=== PATIENT | female | born 1935 | race Caucasian/White ===

== ENCOUNTER 2016-06-28 12:06 | Day surgery (SDC) | payer MEDICARE, BC ==
[2016-06-24 13:07] VITALS: BMI 24.5
[~2016-06-28 12:06] MED LIST: SODIUM CHLORIDE 0.9% 1,000 ML IV SCH; ceFAZolin 2 GM in SODIUM CHLORIDE 0.9% 100 ML IVPB ONE
[2016-06-28 12:38] VITALS: TEMP 98.4
[2016-06-28] MEDS ORDERED: LIDOCAINE 2% INJ 20 MG/ML SQ ONE (15:39)
--- NOTE | 2016-06-28 15:51 | P.PCN ---
Preoperative Diagnosis: Loop explant under sedation and local anesthesia. Patient was brought to the EP lab in a fasting state. Written informed consent was obtained prior to the procedure. The subcutaneous device was successfully explanted under local anesthesia. Preoperative antibiotics were administered. The wound was closed in layers and dressed per protocol. Result: Successful loop monitor explantation. Patient was monitored, heart rate blood pressure and O2 sat from 3:38 PM to 3: 46 PM. Anesthesia: local Disposition: same day
[2016-06-28 16:19] VITALS: BP 189/86; PULSE 62; RESP 16
== END 2016-06-28 16:00 | disposition home or self-care (01) ==
LOC: CATHEP 12:06
PROVIDERS: ATTEND Internal Medicine Clinical Cardiac Electrophysiology
DX: Z45.09 Encounter for adjustment and management of other cardiac device (principal); R55 Syncope and collapse; I25.10 Atherosclerotic heart disease of native coronary artery without angina pectoris; I65.23 Occlusion and stenosis of bilateral carotid arteries; I35.1 Nonrheumatic aortic (valve) insufficiency; Z82.49 Family history of ischemic heart disease and other diseases of the circulatory system; Z95.1 Presence of aortocoronary bypass graft; Z79.01 Long term (current) use of anticoagulants; Z79.82 Long term (current) use of aspirin; Z79.899 Other long term (current) drug therapy
CPT/HCPCS: 33284; J2001; J0690

== ENCOUNTER 2018-04-04 15:01 | Observation (INO) | payer MEDICARE, BC ==
[2018-04-04] MEDS ORDERED: SODIUM CHLORIDE 0.9% 1,000 ML IV ONE (15:22)
[2018-04-04] MEDS ORDERED: cefTRIAXone 2,000 MG in SODIUM CHLORIDE 0.9% 100 ML IVPB STA (15:28)
[2018-04-04] MEDS ORDERED: PIPERACILLIN-TAZOBACTAM 3.375 GM in SODIUM CHLORIDE 0.9% 100 ML IVPB STA ×2 (15:39→17:08)
[2018-04-04 16:40] LABS: Albumin 3.6 g/dL (3.5-5.0); Calcium 10.4 mg/dL (8.4-10.2); Potassium 4.1 mmol/L (3.5-5.1); Total Bilirubin 0.7 mg/dL (0.2-1.3)
[2018-04-04 17:01] LABS: Appearance,Urine Turbid (Clear); Bacteria,Urine Many /hpf; Bilirubin,Urine Negative (Negative); Blood,Urine Moderate (Negative); Color,Urine Yellow; Glucose,Urine (UA) Negative (Negative); Ketones,Urine Negative (Negative); Leukocyte Esterase,Urine Large (Negative); Mucus,Urine Rare /hpf; Nitrite,Urine Negative (Negative); PH, Urine 6.5 (5.0-8.0); Protein,Urine 1+ (Negative); RBC,Urine 122 /hpf (0-5); Specific Gravity,Urine 1.016 (1.001-1.035); Squamous Epithelial Cell,Urine 2 /hpf (0-4); Urobilinogen,Urine <2.0 mg/dL (<2.0); WBC,Urine >182 /hpf (0-5)
--- NOTE | 2018-04-04 17:12 | ED ---
Female Urogenital HPI - General Chief complaint: Urogenital Stated complaint: Bladder infection-Dr sent Time Seen by Provider: 04/04/18 15:19 Source: patient, RN notes reviewed, old records reviewed Mode of arrival: ambulatory Limitations: no limitations - History of Present Illness Initial comments: This is a 82-year-old female the ER for evaluation she presents today for evaluation of abdominal pain and dysuria. Patient has known urinary tract infection on Macrobid resistance ESBL, patient was sent in the ER for inpatient therapy secondary to cultures coming back, patient has resistance to multiple medications and ALLERGIES to other medications that would work for her UTI. No fevers. No other complaints patient has been on 2 antibiotics for the outpatient basis both which show resistance, Complaint: dysuria -: week(s) Location: suprapubic Radiation: non-radiating Severity: mild Severity scale (1-10): 2 Quality: cramping Consistency: constant Improves with: urination Worsens with: urination Patient : No Associated Symptoms: abdominal pain - Related Data Home Medications Medication Instructions Recorded Confirmed Cyanocobalamin [Vitamin B-12] 500 mcg PO DAILY 02/24/15 04/04/18 Polyethylene Glycol 3350 [Miralax] 17 gm PO DAILY 02/24/15 04/04/18 Lidocaine 5% Patch [Lidoderm 5% 1 patch TRANSDERM DAILY 08/12/15 04/04/18 Patch] cycloSPORINE 0.05% OPHTH SOLN 1 drop BOTH EYES BID 08/12/15 04/04/18 [Restasis] Ascorbic Acid [Vitamin C] 1,000 mg PO DAILY 06/24/16 04/04/18 Pravastatin Sodium [Pravachol] 40 mg PO DAILY 06/24/16 04/04/18 Doxycycline Hyclate 100 mg PO BID 04/04/18 04/04/18 Meloxicam [Mobic] 7.5 mg PO DAILY 04/04/18 04/04/18 Naproxen Sodium [Aleve] 220 mg PO DAILY 04/04/18 04/04/18 Allergies Allergy/AdvReac Type Severity Reaction Status Date / Time Sulfa (Sulfonamide Allergy Unknown Verified 04/04/18 15:59 Antibiotics) nitrofurantoin AdvReac fainting Verified 04/04/18 15:59 [From Macrobid] Review of Systems ROS Statement: Those systems with pertinent positive or pertinent negative responses have been documented in the HPI. ROS Other: All systems not noted in ROS Statement are negative. Past Medical History Past Medical History: Coronary Artery Disease (CAD), Hyperlipidemia, Pulmonary Embolus (PE) Additional Past Medical History / Comment(s): SEE DR BAUER'S H&P,FREQ DIZZINESS,FREQ UTI'S, urinary retention -self caths, constipation, shingles 10 years ago, osteoporosis History of Any Multi-Drug Resistant Organisms: None Reported Past Surgical History: Back Surgery, Coronary Bypass/CABG, Orthopedic Surgery, Tonsillectomy Additional Past Surgical History / Comment(s): PAIN CLINIC PROCEDURES,CABG 2 VESSEL 2003, maxwell cataracts,rt rotator cuff, rt hip/donna in place,"implanted monitor to monitor any cardic changes that could explain her syncopal episodes" Past Anesthesia/Blood Transfusion Reactions: Motion Sickness Past Psychological History: No Psychological Hx Reported Smoking Status: Never smoker Past Alcohol Use History: None Reported Past Drug Use History: None Reported - Past Family History Mother Family Medical History: Cancer Additional Family Medical History / Comment(s): LUNG cancer Father Family Medical History: Myocardial Infarction ([place]) Additional Family Medical History / Comment(s): hardening of the arteries General Exam Limitations: no limitations General appearance: alert, in no apparent distress Head exam: Present: atraumatic, normocephalic, normal inspection Eye exam: Present: normal appearance, PERRL, EOMI. Absent: scleral icterus, conjunctival injection, periorbital swelling ENT exam: Present: normal exam, mucous membranes moist Neck exam: Present: normal inspection. Absent: tenderness, meningismus, lymphadenopathy Respiratory exam: Present: normal lung sounds bilaterally. Absent: respiratory distress, wheezes, rales, rhonchi, stridor Cardiovascular Exam: Present: regular rate, normal rhythm, normal heart sounds. Absent: systolic murmur, diastolic murmur, rubs, gallop, clicks GI/Abdominal exam: Present: soft, normal bowel sounds. Absent: distended, tenderness, guarding, rebound, rigid Extremities exam: Present: normal inspection, full ROM, normal capillary refill. Absent: tenderness, pedal edema, joint swelling, calf tenderness Back exam: Present: normal inspection Neurological exam: Present: alert, oriented X3, CN II-XII intact Psychiatric exam: Present: normal affect, normal mood Skin exam: Present: warm, dry, intact, normal color. Absent: rash Course Vital Signs 04/04/18 04/04/18 15:10 17:13 Temperature 98.3 F 98.4 F Pulse Rate 70 Respiratory 18 Rate Blood Pressure 121/73 O2 Sat by Pulse 95 Oximetry - Reevaluation(s) Reevaluation #1: 04/04/18 18:35 Medical record and microbiology are reviewed Medical Decision Making - Medical Decision Making 82 female the ER for evaluation of UTI, will admit for feel outpatient treatment of urinary tract infection - Lab Data Result diagrams: 04/04/18 16:00 04/04/18 16:00 Lab Results 04/04/18 04/04/18 04/04/18 Range/Units 16:00 16:00 16:25 WBC 9.0 (3.8-10.6) k/uL RBC 4.01 (3.80-5.40) m/uL Hgb 11.4 (11.4-16.0) gm/dL Hct 35.7 (34.0-46.0) % MCV 89.0 (80.0-100.0) fL MCH 28.3 (25.0-35.0) pg MCHC 31.8 (31.0-37.0) g/dL RDW 16.0 H (11.5-15.5) % Plt Count 271 (150-450) k/uL Neutrophils % 79 % Lymphocytes % 10 % Monocytes % 6 % Eosinophils % 2 % Basophils % 1 % Neutrophils # 7.1 (1.3-7.7) k/uL Lymphocytes # 0.9 L (1.0-4.8) k/uL Monocytes # 0.6 (0-1.0) k/uL Eosinophils # 0.2 (0-0.7) k/uL Basophils # 0.1 (0-0.2) k/uL Anisocytosis Slight Sodium 142 (137-145) mmol/L Potassium 4.1 (3.5-5.1) mmol/L Chloride 107 (98-107) mmol/L Carbon Dioxide 29 (22-30) mmol/L Anion Gap 6 mmol/L BUN 25 H (7-17) mg/dL Creatinine 0.98 (0.52-1.04) mg/dL Est GFR (CKD-EPI)AfAm 63 (>60 ml/min/1.73 sqM) Est GFR (CKD-EPI)NonAf 54 (>60 ml/min/1.73 sqM) Glucose 107 H (74-99) mg/dL Calcium 10.4 H (8.4-10.2) mg/dL Total Bilirubin 0.7 (0.2-1.3) mg/dL AST 16 (14-36) U/L ALT 16 (9-52) U/L Alkaline Phosphatase 38 (38-126) U/L Total Protein 6.0 L (6.3-8.2) g/dL Albumin 3.6 (3.5-5.0) g/dL Urine Color Yellow Urine Appearance Turbid H (Clear) Urine pH 6.5 (5.0-8.0) Ur Specific Anthony 1.016 (1.001-1.035) Urine Protein 1+ H (Negative) Urine Glucose (UA) Negative (Negative) Urine Ketones Negative (Negative) Urine Blood Moderate H (Negative) Urine Nitrite Negative (Negative) Urine Bilirubin Negative (Negative) Urine Urobilinogen <2.0 (<2.0) mg/dL Ur Leukocyte Esterase Large H (Negative) Urine RBC 122 H (0-5) /hpf Urine WBC >182 H (0-5) /hpf Urine WBC Clumps Many H (None) /hpf Ur Squamous Epith Cells 2 (0-4) /hpf Urine Bacteria Many H (None) /hpf Urine Mucus Rare H (None) /hpf Disposition Clinical Impression: Urinary tract infection, Failure of outpatient treatment Disposition: ADMITTED IP TO THIS HOSP Condition: Good Is patient prescribed a controlled substance at d/c from ED?: No
[2018-04-04 17:20] LABS: Anisocytosis Slight; Basophils # (A) 0.1 k/uL (0-0.2); Basophils % (A) 1 %; Eosinophils # (A) 0.2 k/uL (0-0.7); Eosinophils % (A) 2 %; HCT 35.7 % (34.0-46.0); HGB 11.4 gm/dL (11.4-16.0); Lymphocytes # (A) 0.9 k/uL (1.0-4.8); Lymphocytes % (A) 10 %; MCH 28.3 pg (25.0-35.0); MCHC 31.8 g/dL (31.0-37.0); Mean Platelet Volume 6.8; Monocytes # (A) 0.6 k/uL (0-1.0); Monocytes % (A) 6 %; Neutrophils # (A) 7.1 k/uL (1.3-7.7); Neutrophils % (A) 79 %; Platelet Count 271 k/uL (150-450); RBC 4.01 m/uL (3.80-5.40)
[2018-04-04] MEDS: LIDOCAINE 5% PATCH TOPICAL SCH (21:47)
[2018-04-04] MEDS: cycloSPORINE 0.05% OPHTH 0.4 ML DROPERETTE BOTH EYES SCH (21:47)
[2018-04-04 21:56] VITALS: BMI 25.9
[2018-04-04] MEDS: PIPERACILLIN-TAZOBACTAM 3.375 GM in SODIUM CHLORIDE 0.9% 100 ML IVPB SCH (23:40)
[2018-04-05] MEDS: MELOXICAM 7.5 MG TAB PO SCH (07:45)
[2018-04-05] MEDS: CYANOCOBALAMIN 500 MCG TAB PO SCH (07:45)
[2018-04-05] MEDS: PIPERACILLIN-TAZOBACTAM 3.375 GM in SODIUM CHLORIDE 0.9% 100 ML IVPB SCH ×2 (07:45→15:17)
[2018-04-05] MEDS: ASCORBIC ACID 500 MG TAB PO SCH (07:46)
[2018-04-05] MEDS: ENOXAPARIN 40 MG/0.4 ML SYRINGE SQ SCH (07:46)
[2018-04-05] MEDS: PRAVASTATIN SODIUM 40 MG TAB PO SCH (07:46)
[2018-04-05] MEDS: POLYETHYLENE GLYCOL 3350 17 GM POWD.PACK PO SCH (07:47)
[2018-04-05] MEDS: cycloSPORINE 0.05% OPHTH 0.4 ML DROPERETTE BOTH EYES SCH ×2 (07:48→20:00)
[2018-04-05] MEDS ORDERED: ONDANSETRON 4 MG/2 ML VIAL IVP PRN (17:51)
[2018-04-05] MEDS ORDERED: NALOXONE 0.4 MG/ML 1 ML VIAL IV PRN (17:51)
[2018-04-05] MEDS ORDERED: MELATONIN 3 MG TABLET PO PRN (17:51)
[2018-04-05] MEDS ORDERED: ACETAMINOPHEN TAB 325 MG TAB PO PRN (17:51)
[2018-04-05] MEDS ORDERED: ALPRAZolam 0.25 MG TAB PO PRN (17:51)
[2018-04-05] MEDS ORDERED: CALCIUM CARBONATE 500 MG CHEWABLE PO PRN (17:51)
--- NOTE | 2018-04-05 17:51 | P.HPIM ---
History of Present Illness H&P Date: 04/05/18 Chief Complaint: Burning in the urine History of presenting complaint: This is a very pleasant 82-year-old patient of Dr. Cook. Chronic stable medical conditions include coronary artery disease with bypass, hypertension, hyperlipidemia. Patient presents with burning of the urine for a few days. Getting progressively worse. Finally decided to go to see a family doctor. Urine was sent off. Because of a multidrug-resistant orgasm patient was sent into the ER. Patient also is having suprapubic lower abdominal pain. Nausea and no nausea vomiting. Appetite has been fair. No fever or chills. Patient has been a bit tired rundown. Patient started on IV Zosyn. Patient is really concerned about going home because of a small dog at home. Review of systems: GEN.: Tired EYES: None HEENT: None NECK: None RESPIRATORY: None CARDIOVASCULAR: None GASTROINTESTINAL: None GENITOURINARY: As above MUSCULOSKELETAL: Pain in the joint LYMPHATICS: None HEMATOLOGICAL: None PSYCHIATRY: None NEUROLOGICAL: None. Past medical history: Coronary artery disease, hyperlipidemia, pulmonary embolism, urinary retention, constipation, shingles, osteoporosis Social history: . 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 No smoking or alcohol. Family history: Lung cancer Physical examination: VITAL SIGNS: 98.3, 70, 18, 121/73, 95% room air GENERAL: Average built, laying in bed,, comfortable. EYES: Pupils equal. Conjunctiva normal. HEENT: External appearance of nose and ears normal, oral cavity grossly normal, decreased hearing. NECK: JVD not raised; masses not palpable. HEART: First and second heart sounds are normal; no edema. LUNGS: Respiratory rate normal; clear to auscultation. ABDOMEN: Soft, nontender, liver spleen not palpable, no masses palpable. LYMPHATICS: No lymph nodes palpable in the axilla and neck. PSYCH: Alert and oriented x3; mood and affect normal. NEUROLOGICAL: Cranial nerves grossly intact; no facial asymmetry, power and sensation grossly intact. MUSCULOSKELETAL: Evidence of OA especially in the hands Investigations: Reviewed in the context of clinical picture White count 9, hemoglobin 11.4, potassium 4.1, BUN 25, creatinine 0.98 UA positive for leukoesterase WBC Assessment: -Acute UTI with cystitis, present on admission -Coronary artery disease with prior history of cardiac bypass -Essential hypertension -Hyperlipidemia -Primary osteoarthritis Plan: Patient was started on IV Zosyn. Home medications are resumed. Lovenox for DVT prophylaxis. IV fluids. ID was consulted. Urine cultures are pending. Care was discussed the patient. Past Medical History Past Medical History: Coronary Artery Disease (CAD), Hyperlipidemia, Pulmonary Embolus (PE) Additional Past Medical History / Comment(s): SEE DR BAUER'S H&P,FREQ DIZZINESS,FREQ UTI'S, urinary retention -self caths, constipation, shingles 10 years ago, osteoporosis History of Any Multi-Drug Resistant Organisms: None Reported Past Surgical History: Back Surgery, Coronary Bypass/CABG, Orthopedic Surgery, Tonsillectomy Additional Past Surgical History / Comment(s): PAIN CLINIC PROCEDURES,CABG 2 VESSEL 2003, maxwell cataracts,rt rotator cuff, rt hip/donna in place,"implanted monitor to monitor any cardic changes that could explain her syncopal episodes" Past Anesthesia/Blood Transfusion Reactions: Motion Sickness Past Psychological History: No Psychological Hx Reported Additional Psychological History / Comment(s): pt is a , was 51 years. 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 pt had hip sx recently .has home care nurse once a week and pt 2 times a week. Smoking Status: Never smoker Past Alcohol Use History: None Reported Past Drug Use History: None Reported - Past Family History Mother Family Medical History: Cancer Additional Family Medical History / Comment(s): LUNG cancer Father Family Medical History: Myocardial Infarction ([place]) Additional Family Medical History / Comment(s): hardening of the arteries Medications and Allergies Home Medications Medication Instructions Recorded Confirmed Type Cyanocobalamin [Vitamin B-12] 500 mcg PO DAILY 02/24/15 04/04/18 History Polyethylene Glycol 3350 [Miralax] 17 gm PO DAILY 02/24/15 04/04/18 History Lidocaine 5% Patch [Lidoderm 5% 1 patch TRANSDERM DAILY 08/12/15 04/04/18 History Patch] cycloSPORINE 0.05% OPHTH SOLN 1 drop BOTH EYES BID 08/12/15 04/04/18 History [Restasis] Ascorbic Acid [Vitamin C] 1,000 mg PO DAILY 06/24/16 04/04/18 History Pravastatin Sodium [Pravachol] 40 mg PO DAILY 06/24/16 04/04/18 History Doxycycline Hyclate 100 mg PO BID 04/04/18 04/04/18 History Meloxicam [Mobic] 7.5 mg PO DAILY 04/04/18 04/04/18 History Naproxen Sodium [Aleve] 220 mg PO DAILY 04/04/18 04/04/18 History Allergies Allergy/AdvReac Type Severity Reaction Status Date / Time Sulfa (Sulfonamide Allergy Unknown Verified 04/04/18 15:59 Antibiotics) nitrofurantoin AdvReac fainting Verified 04/04/18 15:59 [From Macrobid] Physical Exam Vitals: Vital Signs Temp Pulse Pulse Resp BP BP Pulse Ox 04/05/18 06:56 98.2 F 64 16 154/71 95 04/04/18 23:45 97.5 F L 57 L 16 161/69 97 04/04/18 21:10 97.8 F 58 L 16 185/71 98 04/04/18 19:29 97.9 F 65 18 177/89 97 04/04/18 17:13 98.4 F 04/04/18 15:10 98.3 F 70 18 121/73 95 Intake and Output 04/05/18 04/05/18 04/05/18 06:59 14:59 22:59 Intake Total 300 Balance 300 Intake: Oral 300 Other: Voiding Method Toilet # Voids 1 1 Results CBC & Chem 7: 04/04/18 16:00 04/04/18 16:00 Labs: Abnormal Lab Results - Last 24 Hours (Table) 04/04/18 04/04/18 04/04/18 Range/Units 16:00 16:00 16:25 RDW 16.0 H (11.5-15.5) % Lymphocytes # 0.9 L (1.0-4.8) k/uL BUN 25 H (7-17) mg/dL Glucose 107 H (74-99) mg/dL Calcium 10.4 H (8.4-10.2) mg/dL Total Protein 6.0 L (6.3-8.2) g/dL Urine Appearance Turbid H (Clear) Urine Protein 1+ H (Negative) Urine Blood Moderate H (Negative) Ur Leukocyte Esterase Large H (Negative) Urine RBC 122 H (0-5) /hpf Urine WBC >182 H (0-5) /hpf Urine WBC Clumps Many H (None) /hpf Urine Bacteria Many H (None) /hpf Urine Mucus Rare H (None) /hpf Microbiology - Last 24 Hours (Table) 04/04/18 16:25 Urine Culture - Preliminary Urine,Catheterized Thrombosis Risk Factor Assmnt - Choose All That Apply Any of the Below Risk Factors Present?: Yes Each Factor Represents 1 point: Obesity (BMI >25) Other Risk Factors: Yes Each Risk Factor Represents 3 Points: Age 75 years or older Other congenital or acquired thrombophilia - If yes, enter type in comment: No Thrombosis Risk Factor Assessment Total Risk Factor Score: 4 Thrombosis Risk Factor Assessment Level: Moderate Risk
[2018-04-05] MEDS: LIDOCAINE 5% PATCH TOPICAL SCH (20:00)
--- NOTE | 2018-04-05 23:48 | CONS ---
CONSULTATION DATE OF SERVICE: 04/05/2018. REASON FOR CONSULTATION: Urinary tract infection. HISTORY OF PRESENT ILLNESS: The patient is an 82 -year-old female with past medical history significant for recurrent urinary tract infection. The patient did have a urinary tract infection with ESBL pathogen in December of 2017. The patient apparently has been treated in the outpatient setting for a UTI for which the patient not responding and the patient has been sent to the [facility] ER for further evaluation on the scene. The patient has been complaining of some burning of urine and has been complaining of discomfort in the left groin area. Pain described to be more of a dull aching 3-4 out of 10, and no radiation. The patient has been nauseated but no vomiting. The patient denies having any high grade fever. However, did have some chills. The patient denies any chest pain or shortness of breath or cough and no diarrhea. With these symptoms, the patient was evaluated by the ER physician. On arrival to the ER, the patient has been afebrile. The patient did have a normal white count. However, the urine was significantly positive with large leukocyte esterase, more than WBC. Many bacteria. Cultures currently showing gram-negative. The patient has been started on Zosyn for was consulted for further recommendation regarding antibiotic therapy. REVIEW OF SYSTEMS: Positive points have been mentioned in HPI. Rest of the systems have been negative. PAST MEDICAL HISTORY: Pulmonary embolus, hyperlipidemia, coronary artery disease, history of recurrent UTIs. PAST SURGICAL HISTORY: Back surgery, coronary artery bypass grafting, tonsillectomy. SOCIAL HISTORY: No history of smoking, drinking, or drug use. FAMILY HISTORY: Mother with history of lung cancer. Father history of UT. ALLERGIES: SULFA and NITROFURANTOIN. MEDICATION: Include the patient is currently on Tylenol, Xanax, vitamin C, TUMS, vitamin B12, cyclosporine and Zosyn 3.375 g q.8h, Lidoderm, Melatonin, Mobic, Narcan, Zofran, MiraLAX, and Pravachol. PHYSICAL EXAMINATION: Blood pressure is 120/68 with a pulse of 73, temperature 98.7. She is 97% on room air. General description is an elderly female up in the bed in no distress. No tachypnea or accessory muscles of respiration use. HEENT: Shows no pallor or scleral icterus. Oral mucosal membranes dry. No pharyngeal or thrush. Neck trachea is central. No thyromegaly. Lungs unlabored breathing. Clear to auscultation anteriorly. No wheeze or crackles. Heart S1, S2. Regular rate and rhythm. ABDOMEN: Soft, no tenderness. No guarding or rigidity. Extremities: No edema of the feet. Skin examination: No rash or mass palpable. NEUROLOGIC: The patient is awake, alert, oriented. Mood and affect normal. LABS: Hemoglobin 11.4, white count 9.0, BUN of 25, creatinine 0.98, and electrolytes have been normal. Urinalysis has been positive. Cultures currently pending. DIAGNOSTIC IMPRESSION/PLAN: 1. Patient admitted to the hospital with urinary tract infection in this patient who apparently failed outpatient oral antibiotic therapy. Did have previous history of ESBL urinary tract infection, could be the same ESBL pathogen that has failed to respond to the antibiotic the patient has received in the outpatient setting. 2. Patient who does have SULFA AND NITROFURANTOIN allergy that does limit the number of antibiotics that are safe to use. PLAN: 1. Discontinue the Zosyn. 2. Start the patient on Invanz 1 gm daily. 3. We will follow up on the clinical condition and culture and adjust antibiotic further if needed. Thank you for this consultation. We will follow this patient along with you. MMODL / IJN: [id number] /
[2018-04-06] MEDS: ERTAPENEM 1 GM in SODIUM CHLORIDE 0.9% 50 ML IVPB SCH ×2 (00:13→14:50)
[2018-04-06 01:41] VITALS: RESP 16
[2018-04-06 07:43] VITALS: BP 125/57; PULSE 69; TEMP 98.4
[2018-04-06] MEDS: POLYETHYLENE GLYCOL 3350 17 GM POWD.PACK PO SCH (09:28)
[2018-04-06] MEDS: ENOXAPARIN 40 MG/0.4 ML SYRINGE SQ SCH (09:34)
[2018-04-06] MEDS: CYANOCOBALAMIN 500 MCG TAB PO SCH (09:34)
[2018-04-06] MEDS: PRAVASTATIN SODIUM 40 MG TAB PO SCH (09:35)
[2018-04-06] MEDS: MELOXICAM 7.5 MG TAB PO SCH (09:35)
[2018-04-06] MEDS: cycloSPORINE 0.05% OPHTH 0.4 ML DROPERETTE BOTH EYES SCH (09:35)
[2018-04-06] MEDS: ASCORBIC ACID 500 MG TAB PO SCH (09:35)
--- NOTE | 2018-04-06 15:16 | PN ---
PROGRESS NOTE DATE OF SERVICE: 04/06/2018 REASON FOR FOLLOWUP: Urine tract infection. INTERVAL HISTORY: The patient is currently afebrile. She is breathing comfortably. She denies having any chest pain or shortness of breath or cough. No abdominal pain. The urinary symptoms have improved. Cultures are currently pending; however, the patient is insisting on going home. PHYSICAL EXAMINATION: Blood pressure is 125/57, pulse of 69, temperature of 98.4. She is 94% on room air. General description is an elderly female up in the bed in no distress. RESPIRATORY SYSTEM: Unlabored breathing. Clear to auscultation anteriorly. HEART: S1, S2. Regular rate and rhythm. ABDOMEN: Soft. No tenderness. LABS: No new labs have been obtained today. Urine culture with gram-negative bacilli; ID sensitivities pending. DIAGNOSTIC IMPRESSION AND PLAN: Patient with a gram-negative urinary tract infection in this patient who does have a history of extended-spectrum beta-lactamase Escherichia coli, with a question of similar or a different pathogen. Patient has overall improvement clinically on IV Invanz. She has been insisting on going home without waiting for the final identification of this pathogen. She did get a dose of Invanz today and yesterday, enough for mild cystitis. Will also give a one-time dose of fosfomycin 3 grams. Prescription was provided to the patient and close outpatient followup. Continue with supportive care. MMODL / IJN: [id number] /
--- NOTE | 2018-04-07 09:11 | DS ---
DISCHARGE SUMMARY DATE OF ADMISSION: April 04, 2018 DATE OF DISCHARGE: April 06, 2018. FINAL DIAGNOSES: 1. Acute urinary tract infection with cystitis from E coli/ESBL. 2. Coronary artery disease with prior history of coronary artery bypass. 3. Essential hypertension. 4. Hyperlipidemia. 5. Primary osteoarthritis. HOSPITAL COURSE: This patient presented with burning sensation. Outpatient labs had show an ESBL. The patient presented with suprapubic pain. The patient was very resistant about going home today and so this was coordinated by Dr. Bustillos. The patient will be getting a dose of fosfomycin as an outpatient 1 dose and that should complete the course. Otherwise, patient is doing better now. Afebrile. Tolerating a diet. Symptoms are better. On examination: Temperature 98.4, pulse 69, respiration 16, blood pressure 120/57. INVESTIGATIONS: White count 9. The patient's urine culture here also grew E coli with ESBL. Care was discussed with Dr. Bustillos today and also with the patient and the granddaughter in detail. Coordination of care and DC planning more than 35 minutes. Abdomen soft nontender. DISCHARGE MEDICATIONS: 1. Vitamin B12 500 mcg a day. 2. MiraLAX 17 grams p.o. daily. 3. Lidoderm 5% patch daily. 4. Restasis 1 drop to both eyes b.i.d. 5. Vitamin C 1000 mg p.o. daily. 6. Pravachol 40 mg p.o. daily. 7. Mobic 7.5 mg p.o. daily. 8. Fosfomycin as per Dr. Bustillos 1 dose. FOLLOWUP: Follow up with Dr. San on April 11, 2018. Dr. Bustillos on April 10, 2018. Labs ordered. Discussion and discharge planning more than [address] San. MMODL / IJN: [id number] /
== END 2018-04-06 15:40 | disposition home or self-care (01) ==
LOC: EC 15:01 → 4SSUR 17:47
PROVIDERS: ADMIT Hospitalist; ATTEND Hospitalist
DX: N30.00 Acute cystitis without hematuria (principal); B96.20 Unspecified Escherichia coli [E. coli] as the cause of diseases classified elsewhere; I25.10 Atherosclerotic heart disease of native coronary artery without angina pectoris; I10 Essential (primary) hypertension; E78.5 Hyperlipidemia, unspecified; R33.9 Retention of urine, unspecified; K59.00 Constipation, unspecified; M19.91 Primary osteoarthritis, unspecified site; M81.0 Age-related osteoporosis without current pathological fracture; E66.9 Obesity, unspecified; Z68.25 Body mass index [BMI] 25.0-25.9, adult; Z16.12 Extended spectrum beta lactamase (ESBL) resistance; Z95.1 Presence of aortocoronary bypass graft; Z86.711 Personal history of pulmonary embolism; Z82.49 Family history of ischemic heart disease and other diseases of the circulatory system; Z80.1 Family history of malignant neoplasm of trachea, bronchus and lung; Z16.24 Resistance to multiple antibiotics; Z79.899 Other long term (current) drug therapy; Z87.440 Personal history of urinary (tract) infections; Z88.2 Allergy status to sulfonamides; Z79.1 Long term (current) use of non-steroidal anti-inflammatories (NSAID); Z86.19 Personal history of other infectious and parasitic diseases; Z88.1 Allergy status to other antibiotic agents
CPT/HCPCS: 96361; 96366 ×2; 96367; 96372 ×2; 96360; 96365; 99284; 36415; 80053; 85025; 81001; 87086; 87077; 87186; G0378 ×3; J2543 ×2; J1650 ×2; J1335

== ENCOUNTER → 2018-07-10 | Outpatient (CLI) | payer MEDICARE, BC ==
[~2018-07-10] MED LIST changes: +DENOSUMAB 60 MG/ML 1 ML SYRINGE SQ ONE; -SODIUM CHLORIDE 0.9% 1,000 ML IV SCH; -ceFAZolin 2 GM in SODIUM CHLORIDE 0.9% 100 ML IVPB ONE
[2018-07-10 15:07] VITALS: BP 171/68; PULSE 73; RESP 16; TEMP 97.7
== END ==
LOC: PROCWHC3 14:41
PROVIDERS: ATTEND Internal Medicine
DX: M81.0 Age-related osteoporosis without current pathological fracture (principal)
CPT/HCPCS: 96372; J0897

== ENCOUNTER → 2019-01-10 | Outpatient (CLI) | payer MEDICARE, BC ==
[~2019-01-10] MED LIST changes: +DENOSUMAB 60 MG/ML 1 ML SYRINGE SQ NR; -DENOSUMAB 60 MG/ML 1 ML SYRINGE SQ ONE
[2019-01-10 12:46] VITALS: BP 134/76; PULSE 85; RESP 18; TEMP 97.2
== END | disposition home or self-care (01) ==
LOC: PROCWHC3 12:36
PROVIDERS: ATTEND Internal Medicine
DX: M81.0 Age-related osteoporosis without current pathological fracture (principal)
CPT/HCPCS: 96372; J0897

== ENCOUNTER → 2019-03-04 | Outpatient (CLI) | payer MEDICARE, BC ==
--- NOTE | 2019-03-05 06:32 | US ---
EXAMINATION TYPE: US carotid duplex BILAT DATE OF EXAM: 03/04/2019 COMPARISON: NONE CLINICAL HISTORY: I65.21 RT LOWER BRUIT, PULSATILE MASS. Bruit EXAM MEASUREMENTS: RIGHT: Peak Systolic Velocity (PSV) cm/sec ----- Right CCA: 48.3 ----- Right ICA: 48.3 ----- Right ECA: 93.8 ICA/CCA ratio: 1.0 RIGHT: End Diastole cm/sec ----- Right CCA: 9.9 ----- Right ICA: 10.4 ----- Right ECA: 7.0 LEFT: Peak Systolic Velocity (PSV) cm/sec ----- Left CCA: 51.2 ----- Left ICA: 85.3 ----- Left ECA: 111.9 ICA/CCA ratio: 1.7 LEFT: End Diastole cm/sec ----- Left CCA: 12.2 ----- Left ICA: 22.3 ----- Left ECA: 7.6 VERTEBRALS (direction of flow): Right Vertebral: Antegrade Left Vertebral: Antegrade Rhythm: Normal Damian scale images show mild peripheral hyperechoic plaque centered at carotid bulb level bilaterally. Velocity measurements and ratios remain within normal limits in the visualized portion of both inter nal carotid arteries. IMPRESSION: No hemodynamically significant stenosis in either internal carotid artery. Criteria for Assigning % of Stenosis / Diameter reduction (Estimation based on the indirect measurements of the internal carotid artery velocities (ICA PSV). 1. Normal (no stenosis)=ICA PSV < 125 cm/s: ratio < 2.0: ICA EDV<40 cm/s. 2. Less than 50% stenosis=ICA PSV < 125 cm/s: ratio < 2.0: ICA EDV<40 cm/s. 3. 50 to 69% stenosis=ICA PSV of 125 to 230 cm/s: ration 2.0 ? 4.0: ICA EDV 40-100 cm/s. 4. Greater than 70% stenosis to near occlusion= ICA PSV > 230 cm/s: ratio > 4.0: ICA EDV > 100 cm/s. 5. Near occlusion= ICA PSV velocities may be low or undetectable: variable ratio and ICA EDV. 6. Total occlusion=unable to detect flow.
== END | disposition home or self-care (01) ==
LOC: RADUSWWP 16:07
PROVIDERS: ATTEND Psychiatry & Neurology Neurology
DX: I65.21 Occlusion and stenosis of right carotid artery (principal)
CPT/HCPCS: 93880

== ENCOUNTER 2021-01-07 18:37 | Emergency (ER) | payer MEDICARE, BC ==
[2021-01-07 18:48] VITALS: TEMP 98.3
[2021-01-07 19:26] LABS: Basophils # (A) 0.1 k/uL (0-0.2); Basophils % (A) 1 %; Eosinophils # (A) 0.2 k/uL (0-0.7); Eosinophils % (A) 3 %; HCT 39.4 % (34.0-46.0); HGB 12.6 gm/dL (11.4-16.0); Lymphocytes # (A) 0.9 k/uL (1.0-4.8); Lymphocytes % (A) 11 %; MCV 87.6 fL (80.0-100.0); Mean Platelet Volume 8.9; Monocytes # (A) 0.6 k/uL (0-1.0); Monocytes % (A) 6 %; Neutrophils # (A) 6.7 k/uL (1.3-7.7); Neutrophils % (A) 78 %; Platelet Count 210 k/uL (150-450); RDW 15.9 % (11.5-15.5); WBC 8.5 k/uL (3.8-10.6)
[2021-01-07] MEDS ORDERED: SODIUM CHLORIDE 0.9% 500 ML 500 ML IV STA (19:28)
--- NOTE | 2021-01-07 19:29 | ED ---
General Adult HPI - General Chief complaint: Shortness of Breath Stated complaint: ALEXANDRA Time Seen by Provider: 01/07/21 18:47 Source: patient Mode of arrival: EMS Limitations: no limitations - History of Present Illness Initial comments: Dictation was produced using [employer] dictation software. please excuse any grammatical, word or spelling errors. Chief Complaint: 85-year-old female brought to the emergency department for an episode of respiratory distress History of Present Illness: Patient is an 85-year-old female she was brought in by EMS. Patient is a poor historian. History of present illness was obtained from patient's daughter and EMS. Patient was diagnosed with 12-lead 10 days ago. She's been symptomatic for approximately 13 days. According to daughter who is at the bedside she witnessed an episode of respiratory distress. As described as a gasping episode. She's been much more lethargic today. She otherwise has not really shown any severe respiratory symptoms from coronavirus. Daughter reports that patient is incontinent to urine. She is noted dark urine. Patient has previous history of pseudomonas UTI. The ROS documented in this emergency department record has been reviewed and confirmed by me. Those systems with pertinent positive or negative responses have been documented in the HPI. All other systems are other negative and/or noncontributory. PHYSICAL EXAM: General Impression: Alert and oriented x3, not in acute distress HEENT: Normocephalic atraumatic, extra-ocular movements intact, pupils equal and reactive to light bilaterally, dry mucous members Cardiovascular: Heart regular rate and rhythm Chest: Able to complete full sentences, no retractions, no tachypnea Abdomen: abdomen soft, non-tender, non-distended, no organomegaly Musculoskeletal: Pulses present and equal in all extremities, no peripheral edema Motor: no focal deficits noted Neurological: CN II-XII grossly intact, no focal motor or sensory deficits noted Skin: Intact with no visualized rashes Psych: Normal affect and mood ED course: 85-year-old female presents emergency department for episode of respiratory distress described as gasping episode. Vital signs upon arrival are within acceptable limits. Patient arrived on nonrebreather. EMS did not check a pulse oxygen before applying nonrebreather. Patient was weaned off nonrebreather. She is 94% on room air. To evaluation obtained. CBC, metabolic panel is unremarkable. Urinalysis is negative. Chest x-ray is nonacute. Patient is observed in emergency department for 2 hours. Reevaluated at the bedside at 8:40 PM from [facility]. Patient outside the window for monoclonal antibody administration. She is not hypoxic or showing any signs of respiratory distress. His be significantly improved. Disposition options were discussed with the daughter. She does have a good support system at home. Patient be discharged. Precautions discussed. EKG interpretation: Ventricular rate 73, normal sinus rhythm,. 186, QRS 80, QTC 425. No CT prolongation, no QTC prolongation, no ST or T-wave changes noted. Overall, this EKG is unremarkable - Related Data Home Medications Medication Instructions Recorded Confirmed Donepezil HCl [Aricept] 10 mg PO DAILY 01/07/21 01/07/21 Memantine HCl [Memantine HCl ER] 28 mg PO DAILY 01/07/21 01/07/21 Allergies Allergy/AdvReac Type Severity Reaction Status Date / Time Sulfa (Sulfonamide Allergy Unknown Verified 01/07/21 20:16 Antibiotics) nitrofurantoin AdvReac fainting Verified 01/07/21 20:16 [From Macrobid] Review of Systems ROS Statement: Those systems with pertinent positive or pertinent negative responses have been documented in the HPI. ROS Other: All systems not noted in ROS Statement are negative. Past Medical History Past Medical History: Coronary Artery Disease (CAD), Hyperlipidemia, Pulmonary Embolus (PE) Additional Past Medical History / Comment(s): SEE DR BAUER'S H&P,FREQ DIZZINESS,FREQ UTI'S, urinary retention -self caths, constipation, shingles 10 years ago, osteoporosis History of Any Multi-Drug Resistant Organisms: ESBL Date of last positivie culture/infection: 04/04/18 MDRO Source:: ESBL URINE Past Surgical History: Back Surgery, Coronary Bypass/CABG, Orthopedic Surgery, Tonsillectomy Additional Past Surgical History / Comment(s): PAIN CLINIC PROCEDURES,CABG 2 VESSEL 2004, maxwell cataracts,rt rotator cuff, rt hip/donna in place,"implanted monitor to monitor any cardic changes that could explain her syncopal episodes" Past Anesthesia/Blood Transfusion Reactions: Motion Sickness Past Psychological History: No Psychological Hx Reported Past Alcohol Use History: None Reported Past Drug Use History: None Reported - Past Family History Mother Family Medical History: Cancer Additional Family Medical History / Comment(s): LUNG cancer Father Family Medical History: Myocardial Infarction ([place]) Additional Family Medical History / Comment(s): hardening of the arteries General Exam Limitations: no limitations Course Vital Signs 01/07/21 18:41 Temperature 98.3 F Pulse Rate 66 Respiratory 16 Rate Blood Pressure 145/77 Medical Decision Making - Lab Data Result diagrams: 01/07/21 19:15 01/07/21 19:15 Lab Results 01/07/21 01/07/21 01/07/21 Range/Units 19:15 19:15 20:30 WBC 8.5 (3.8-10.6) k/uL RBC 4.50 (3.80-5.40) m/uL Hgb 12.6 (11.4-16.0) gm/dL Hct 39.4 (34.0-46.0) % MCV 87.6 (80.0-100.0) fL MCH 28.0 (25.0-35.0) pg MCHC 32.0 (31.0-37.0) g/dL RDW 15.9 H (11.5-15.5) % Plt Count 210 (150-450) k/uL MPV 8.9 Neutrophils % 78 % Lymphocytes % 11 % Monocytes % 6 % Eosinophils % 3 % Basophils % 1 % Neutrophils # 6.7 (1.3-7.7) k/uL Lymphocytes # 0.9 L (1.0-4.8) k/uL Monocytes # 0.6 (0-1.0) k/uL Eosinophils # 0.2 (0-0.7) k/uL Basophils # 0.1 (0-0.2) k/uL Sodium 140 (137-145) mmol/L Potassium 3.5 (3.5-5.1) mmol/L Chloride 107 (98-107) mmol/L Carbon Dioxide 27 (22-30) mmol/L Anion Gap 6 mmol/L BUN 21 H (7-17) mg/dL Creatinine 0.80 (0.52-1.04) mg/dL Est GFR (CKD-EPI)AfAm 79 (>60 ml/min/1.73 sqM) Est GFR (CKD-EPI)NonAf 68 (>60 ml/min/1.73 sqM) Glucose 122 H (74-99) mg/dL Calcium 9.9 (8.4-10.2) mg/dL Urine Color Yellow Urine Appearance Clear (Clear) Urine pH 6.5 (5.0-8.0) Ur Specific [place] 1.018 (1.001-1.035) Urine Protein Negative (Negative) Urine Glucose (UA) Negative (Negative) Urine Ketones Negative (Negative) Urine Blood Negative (Negative) Urine Nitrite Negative (Negative) Urine Bilirubin Negative (Negative) Urine Urobilinogen <2.0 (<2.0) mg/dL Ur Leukocyte Esterase Negative (Negative) Disposition Clinical Impression: COVID-19 Disposition: HOME SELF-CARE Condition: Good Instructions (If sedation given, give patient instructions): Coronavirus Disease 2019 (COVID-19) Is patient prescribed a controlled substance at d/c from ED?: No Referrals: Samson San MD [Primary Care Provider] - 1-2 days
--- NOTE | 2021-01-07 19:36 | XR ---
EXAMINATION TYPE: XR chest 1V portable DATE OF EXAM: 01/07/2021 HISTORY: Shortness of breath. COMPARISON: 08/12/15 TECHNIQUE: Single view of the chest is submitted. FINDINGS: Demonstrated are scattered senescent parenchymal change. There is no evidence for focal infiltrate. The heart is stable. Hilar and mediastinal structures are within normal limits. Degenerative changes are seen of the dorsal spine. IMPRESSION: 1. Chronic changes without evidence for acute pulmonary disease.
[2021-01-07 19:37] LABS: Calcium 9.9 mg/dL (8.4-10.2); Potassium 3.5 mmol/L (3.5-5.1)
[2021-01-07 20:37] LABS: Appearance,Urine Clear (Clear); Bilirubin,Urine Negative (Negative); Blood,Urine Negative (Negative); Color,Urine Yellow; Glucose,Urine (UA) Negative (Negative); Ketones,Urine Negative (Negative); Leukocyte Esterase,Urine Negative (Negative); Nitrite,Urine Negative (Negative); PH, Urine 6.5 (5.0-8.0); Protein,Urine Negative (Negative); Specific Gravity,Urine 1.018 (1.001-1.035); Urobilinogen,Urine <2.0 mg/dL (<2.0)
[2021-01-07 21:12] VITALS: BP 136/84; PULSE 65; RESP 24
== END 2021-01-07 21:12 | disposition home or self-care (01) ==
LOC: EC 18:37
DX: U07.1 COVID-19 (principal); I25.10 Atherosclerotic heart disease of native coronary artery without angina pectoris; E78.5 Hyperlipidemia, unspecified; Z88.2 Allergy status to sulfonamides; Z86.711 Personal history of pulmonary embolism; Z87.440 Personal history of urinary (tract) infections; Z95.1 Presence of aortocoronary bypass graft; Z90.89 Acquired absence of other organs; Z88.1 Allergy status to other antibiotic agents; Z79.899 Other long term (current) drug therapy
CPT/HCPCS: 36415; 71045; 80048; 81003; 85025; 93005; 99285

== ENCOUNTER 2021-01-11 11:53 | Inpatient (IN) | payer MEDICARE, BC ==
[2021-01-11] MEDS ORDERED: SODIUM CHLORIDE 0.9% 500 ML 500 ML IV STA (12:44)
[2021-01-11] MEDS ORDERED: SODIUM CHLORIDE 0.9% 1,000 ML IV STA (12:44)
[2021-01-11] MEDS ORDERED: ACETAMINOPHEN TAB 325 MG TAB PO STA (12:44)
[2021-01-11 12:59] LABS: Basophils # (A) 0.1 k/uL (0-0.2); Basophils % (A) 1 %; Eosinophils # (A) 0.1 k/uL (0-0.7); Eosinophils % (A) 1 %; HCT 36.7 % (34.0-46.0); HGB 11.9 gm/dL (11.4-16.0); Lymphocytes # (A) 0.6 k/uL (1.0-4.8); Lymphocytes % (A) 6 %; MCH 28.5 pg (25.0-35.0); MCHC 32.4 g/dL (31.0-37.0); MCV 87.9 fL (80.0-100.0); Monocytes # (A) 0.8 k/uL (0-1.0); Monocytes % (A) 7 %; Neutrophils # (A) 9.5 k/uL (1.3-7.7); Neutrophils % (A) 84 %; Platelet Count 202 k/uL (150-450); RBC 4.18 m/uL (3.80-5.40); RDW 15.9 % (11.5-15.5); WBC 11.2 k/uL (3.8-10.6)
--- NOTE | 2021-01-11 13:00 | ED ---
General Adult HPI - General Chief complaint: Weakness Stated complaint: dehydration, waeakness Time Seen by Provider: 01/11/21 12:00 Source: patient, family, EMS, RN notes reviewed, old records reviewed Mode of arrival: EMS Limitations: no limitations - History of Present Illness Initial comments: This is an 85-year-old female presents emergency Department with the complaint of generalized weakness and inability to ablate because she so weak. According to the daughter she had copious 31 days ago and was seen in the ER last for weakness and a little confusion. Patient is not confused today the daughter states. But the daughter states that the patient so weak she can't stand on her own and she is afraid she is given a fall. Patient has had no fever today there's been no complaint of difficulty breathing shortness of breath or chest pain. There is been a complete abdominal pain no nausea vomiting or diarrhea. Patient is not eating or drinking as much is normal. - Related Data Home Medications Medication Instructions Recorded Confirmed Donepezil HCl [Aricept] 10 mg PO DAILY 01/07/21 01/07/21 Memantine HCl [Memantine HCl ER] 28 mg PO DAILY 01/07/21 01/07/21 Allergies Allergy/AdvReac Type Severity Reaction Status Date / Time Sulfa (Sulfonamide Allergy Unknown Verified 01/11/21 12:01 Antibiotics) nitrofurantoin AdvReac fainting Verified 01/11/21 12:01 [From Macrobid] Review of Systems ROS Statement: Those systems with pertinent positive or pertinent negative responses have been documented in the HPI. ROS Other: All systems not noted in ROS Statement are negative. Past Medical History Past Medical History: Coronary Artery Disease (CAD), Hyperlipidemia, Pulmonary Embolus (PE) Additional Past Medical History / Comment(s): SEE DR BAUER'S H&P,FREQ DIZZINESS,FREQ UTI'S, urinary retention -self caths, constipation, shingles 10 years ago, osteoporosis History of Any Multi-Drug Resistant Organisms: ESBL Date of last positivie culture/infection: 04/04/18 MDRO Source:: ESBL URINE Past Surgical History: Back Surgery, Coronary Bypass/CABG, Orthopedic Surgery, Tonsillectomy Additional Past Surgical History / Comment(s): PAIN CLINIC PROCEDURES,CABG 2 VESSEL 2004, maxwell cataracts,rt rotator cuff, rt hip/donna in place,"implanted monitor to monitor any cardic changes that could explain her syncopal episodes" Past Anesthesia/Blood Transfusion Reactions: Motion Sickness Past Psychological History: No Psychological Hx Reported Past Alcohol Use History: None Reported Past Drug Use History: None Reported - Past Family History Mother Family Medical History: Cancer Additional Family Medical History / Comment(s): LUNG cancer Father Family Medical History: Myocardial Infarction ([place]) Additional Family Medical History / Comment(s): hardening of the arteries General Exam - General Exam Comments Initial Comments: GENERAL: Patient is well-developed and well-nourished. Patient is nontoxic and well- hydrated and is in mild distress. Patient does seem very weak she is unable to sit up in bed on her own. ENT: Neck is soft and supple. No significant lymphadenopathy is noted. Oropharynx is clear. Moist mucous membranes. Neck has full range of motion without eliciting any pain. EYES: The sclera were anicteric and conjunctiva were pink and moist. Extraocular movements were intact and pupils were equal round and reactive to light. Eyelids were unremarkable. PULMONARY: Unlabored respirations. Good breath sounds bilaterally. No audible rales rhonchi or wheezing was noted. CARDIOVASCULAR: There is a regular rate and rhythm without any murmurs gallops or rubs. ABDOMEN: Soft and nontender with normal bowel sounds. SKIN: Skin is clear with no lesions or rashes and otherwise unremarkable. NEUROLOGIC: Patient is alert and oriented x3. Cranial nerves II through XII are grossly intact. Motor and sensory are also intact. Normal speech, volume and content. Symmetrical smile. MUSCULOSKELETAL: Normal extremities with adequate strength and full range of motion. LYMPHATICS: No significant lymphadenopathy is noted PSYCHIATRIC: Mildly anxious Limitations: no limitations Course Vital Signs 01/11/21 11:58 Temperature 97.3 F L Pulse Rate 66 Respiratory 16 Rate Blood Pressure 154/75 O2 Sat by Pulse 95 Oximetry Medical Decision Making - Medical Decision Making EKG shows normal sinus rhythm at 67 bpm ID interval 184 QRS is 94 Q-T intervals 438 QTC is 462. Patient's EKG shows no ST segment elevation or depression Patient's urine came back at 2:45 PM showed urinary tract infection was start antibiotics immediately. I spoke with Dr. Chandra he agreed to admit the patient to the patient wrote admitting orders - Lab Data Result diagrams: 01/11/21 12:47 01/11/21 12:47 Lab Results 01/11/21 01/11/21 01/11/21 Range/Units 12:47 12:47 12:47 WBC 11.2 H (3.8-10.6) k/uL RBC 4.18 (3.80-5.40) m/uL Hgb 11.9 (11.4-16.0) gm/dL Hct 36.7 (34.0-46.0) % MCV 87.9 (80.0-100.0) fL MCH 28.5 (25.0-35.0) pg MCHC 32.4 (31.0-37.0) g/dL RDW 15.9 H (11.5-15.5) % Plt Count 202 (150-450) k/uL MPV 9.0 Neutrophils % 84 % Lymphocytes % 6 % Monocytes % 7 % Eosinophils % 1 % Basophils % 1 % Neutrophils # 9.5 H (1.3-7.7) k/uL Lymphocytes # 0.6 L (1.0-4.8) k/uL Monocytes # 0.8 (0-1.0) k/uL Eosinophils # 0.1 (0-0.7) k/uL Basophils # 0.1 (0-0.2) k/uL PT 11.4 (9.0-12.0) sec INR 1.1 (<1.2) APTT 23.1 (22.0-30.0) sec Sodium (137-145) mmol/L Potassium (3.5-5.1) mmol/L Chloride (98-107) mmol/L Carbon Dioxide (22-30) mmol/L Anion Gap mmol/L BUN (7-17) mg/dL Creatinine (0.52-1.04) mg/dL Est GFR (CKD-EPI)AfAm (>60 ml/min/1.73 sqM) Est GFR (CKD-EPI)NonAf (>60 ml/min/1.73 sqM) Glucose (74-99) mg/dL Lactic Ac Sepsis Rflx Plasma Lactic Acid Paul (0.7-2.0) mmol/L Calcium (8.4-10.2) mg/dL Total Bilirubin (0.2-1.3) mg/dL AST (14-36) U/L ALT (4-34) U/L Alkaline Phosphatase (38-126) U/L Troponin I (0.000-0.034) ng/mL Total Protein (6.3-8.2) g/dL Albumin (3.5-5.0) g/dL Urine Color Yellow Urine Appearance Turbid H (Clear) Urine pH 6.0 (5.0-8.0) Ur Specific [place] 1.017 (1.001-1.035) Urine Protein 1+ H (Negative) Urine Glucose (UA) Negative (Negative) Urine Ketones Negative (Negative) Urine Blood Small H (Negative) Urine Nitrite Negative (Negative) Urine Bilirubin Negative (Negative) Urine Urobilinogen <2.0 (<2.0) mg/dL Ur Leukocyte Esterase Large H (Negative) Urine RBC 19 H (0-5) /hpf Urine WBC >182 H (0-5) /hpf Ur Squamous Epith Cells 4 (0-4) /hpf Urine Bacteria Many H (None) /hpf Urine Mucus Moderate H (None) /hpf 01/11/21 01/11/21 01/11/21 Range/Units 12:47 12:47 12:47 WBC (3.8-10.6) k/uL RBC (3.80-5.40) m/uL Hgb (11.4-16.0) gm/dL Hct (34.0-46.0) % MCV (80.0-100.0) fL MCH (25.0-35.0) pg MCHC (31.0-37.0) g/dL RDW (11.5-15.5) % Plt Count (150-450) k/uL MPV Neutrophils % % Lymphocytes % % Monocytes % % Eosinophils % % Basophils % % Neutrophils # (1.3-7.7) k/uL Lymphocytes # (1.0-4.8) k/uL Monocytes # (0-1.0) k/uL Eosinophils # (0-0.7) k/uL Basophils # (0-0.2) k/uL PT (9.0-12.0) sec INR (<1.2) APTT (22.0-30.0) sec Sodium 135 L (137-145) mmol/L Potassium 3.6 (3.5-5.1) mmol/L Chloride 102 (98-107) mmol/L Carbon Dioxide 25 (22-30) mmol/L Anion Gap 8 mmol/L BUN 16 (7-17) mg/dL Creatinine 0.78 (0.52-1.04) mg/dL Est GFR (CKD-EPI)AfAm 81 (>60 ml/min/1.73 sqM) Est GFR (CKD-EPI)NonAf 70 (>60 ml/min/1.73 sqM) Glucose 148 H (74-99) mg/dL Lactic Ac Sepsis Rflx Plasma Lactic Acid Paul 2.3 H* (0.7-2.0) mmol/L Calcium 9.3 (8.4-10.2) mg/dL Total Bilirubin 1.4 H (0.2-1.3) mg/dL AST 23 (14-36) U/L ALT 12 (4-34) U/L Alkaline Phosphatase 57 (38-126) U/L Troponin I <0.012 (0.000-0.034) ng/mL Total Protein 6.1 L (6.3-8.2) g/dL Albumin 3.1 L (3.5-5.0) g/dL Urine Color Urine Appearance (Clear) Urine pH (5.0-8.0) Ur Specific [place] (1.001-1.035) Urine Protein (Negative) Urine Glucose (UA) (Negative) Urine Ketones (Negative) Urine Blood (Negative) Urine Nitrite (Negative) Urine Bilirubin (Negative) Urine Urobilinogen (<2.0) mg/dL Ur Leukocyte Esterase (Negative) Urine RBC (0-5) /hpf Urine WBC (0-5) /hpf Ur Squamous Epith Cells (0-4) /hpf Urine Bacteria (None) /hpf Urine Mucus (None) /hpf 01/11/21 Range/Units 13:23 WBC (3.8-10.6) k/uL RBC (3.80-5.40) m/uL Hgb (11.4-16.0) gm/dL Hct (34.0-46.0) % MCV (80.0-100.0) fL MCH (25.0-35.0) pg MCHC (31.0-37.0) g/dL RDW (11.5-15.5) % Plt Count (150-450) k/uL MPV Neutrophils % % Lymphocytes % % Monocytes % % Eosinophils % % Basophils % % Neutrophils # (1.3-7.7) k/uL Lymphocytes # (1.0-4.8) k/uL Monocytes # (0-1.0) k/uL Eosinophils # (0-0.7) k/uL Basophils # (0-0.2) k/uL PT (9.0-12.0) sec INR (<1.2) APTT (22.0-30.0) sec Sodium (137-145) mmol/L Potassium (3.5-5.1) mmol/L Chloride (98-107) mmol/L Carbon Dioxide (22-30) mmol/L Anion Gap mmol/L BUN (7-17) mg/dL Creatinine (0.52-1.04) mg/dL Est GFR (CKD-EPI)AfAm (>60 ml/min/1.73 sqM) Est GFR (CKD-EPI)NonAf (>60 ml/min/1.73 sqM) Glucose (74-99) mg/dL Lactic Ac Sepsis Rflx Y Plasma Lactic Acid Paul (0.7-2.0) mmol/L Calcium (8.4-10.2) mg/dL Total Bilirubin (0.2-1.3) mg/dL AST (14-36) U/L ALT (4-34) U/L Alkaline Phosphatase (38-126) U/L Troponin I (0.000-0.034) ng/mL Total Protein (6.3-8.2) g/dL Albumin (3.5-5.0) g/dL Urine Color Urine Appearance (Clear) Urine pH (5.0-8.0) Ur Specific [place] (1.001-1.035) Urine Protein (Negative) Urine Glucose (UA) (Negative) Urine Ketones (Negative) Urine Blood (Negative) Urine Nitrite (Negative) Urine Bilirubin (Negative) Urine Urobilinogen (<2.0) mg/dL Ur Leukocyte Esterase (Negative) Urine RBC (0-5) /hpf Urine WBC (0-5) /hpf Ur Squamous Epith Cells (0-4) /hpf Urine Bacteria (None) /hpf Urine Mucus (None) /hpf Disposition Clinical Impression: Generalized weakness, Urinary tract infection Disposition: ADMITTED IP TO THIS HOSP Referrals: None,Stated [Primary Care Provider] - 1-2 days Time of Disposition: 15:29
[2021-01-11 13:22] LABS: Albumin 3.1 g/dL (3.5-5.0); Calcium 9.3 mg/dL (8.4-10.2); Potassium 3.6 mmol/L (3.5-5.1); Total Bilirubin 1.4 mg/dL (0.2-1.3); Total Protein 6.1 g/dL (6.3-8.2)
[2021-01-11 13:24] LABS: INR 1.1 (<1.2); Partial Thromboplastin Time 23.1 sec (22.0-30.0); Prothrombin Time 11.4 sec (9.0-12.0)
--- NOTE | 2021-01-11 13:56 | XR ---
EXAMINATION TYPE: XR chest 2V DATE OF EXAM: 01/11/2021 COMPARISON: Chest x-ray 01/07/2021 HISTORY: Weakness and dehydration TECHNIQUE: Frontal and lateral views of the chest are obtained. FINDINGS: Patient is post median sternotomy and rotated. Exam is expiratory. Patchy basilar density i s noted. Cardiac mediastinal silhouette is likely stable, there may be an underlying scoliosis, there is thoracic spondylosis. Bone mineralization is reduced. Arthropathy noted within the shoulders. IMPRESSION: Possible basilar atelectasis, correlate to exclude pneumonia, consider follow-up PA and lateral chest x-ray when patient is stable for better evaluation. Expiratory rotated exam.
[2021-01-11 14:26] LABS: Appearance,Urine Turbid (Clear); Bacteria,Urine Many /hpf; Bilirubin,Urine Negative (Negative); Blood,Urine Small (Negative); Color,Urine Yellow; Glucose,Urine (UA) Negative (Negative); Ketones,Urine Negative (Negative); Leukocyte Esterase,Urine Large (Negative); Mucus,Urine Moderate /hpf; Nitrite,Urine Negative (Negative); Protein,Urine 1+ (Negative); RBC,Urine 19 /hpf (0-5); Specific Gravity,Urine 1.017 (1.001-1.035); Squamous Epithelial Cell,Urine 4 /hpf (0-4); Urobilinogen,Urine <2.0 mg/dL (<2.0); WBC,Urine >182 /hpf (0-5)
[2021-01-11] MEDS ORDERED: SODIUM CHLORIDE 0.9% 1,000 ML IV ONE ×2 (14:49→15:29)
[2021-01-11] MEDS ORDERED: SODIUM CHLORIDE 0.9% 1,000 ML IV SCH (15:00)
--- NOTE | 2021-01-12 00:22 | P.HPIM ---
History of Present Illness H&P Date: 01/11/21 Chief Complaint: Generalized weakness Patient is a 85-year-old female with known history of coronary disease status post CABG, hyperlipidemia, history of PE, history of urine retentionself caths and prior history of urinary tract infection with ESBL was brought to the [facility] by her daughter due to complaints of generalized weakness and unable to ambulate. Patient was mainly brought to the hospital due to generalized weakness. Patient was seen in the ER couple days ago due to complaints of difficulty in breathing and was diagnosed with COVID-19 infection more than 2 weeks ago as per her daughter.. Patient does not know why she is in the hospital currently. Could not provide any history at this time. Chest x-ray showed possible bibasilar atelectasis, correlate to exclude pneumonia. Consider follow-up PA and lateral chest x-ray when patient is stable for better evaluation. Laboratory showed WBC 11.2 hemoglobin 11.9 and platelets 202 and lymphocytes 0.6 Sodium 135 potassium 3.6 chloride 102 bicarb 25 BUN 16 and creatinine 0.78 Lactic acid 2.8 on admission Total bilirubin level is 1.4 Urinalysis showed turbid with 1+ protein, small blood, large leukocytes trace and elevated WBCs and RBCs. COVID-19 PCR not detected. Review of Systems Review of systems could not be obtained from the patient. Past Medical History Past Medical History: Coronary Artery Disease (CAD), Hyperlipidemia, Pulmonary Embolus (PE) Additional Past Medical History / Comment(s): SEE DR BAUER'S H&P,FREQ DIZZINESS,FREQ UTI'S, urinary retention -self caths, constipation, shingles 10 years ago, osteoporosis History of Any Multi-Drug Resistant Organisms: ESBL Date of last positivie culture/infection: 04/04/18 MDRO Source:: ESBL URINE Past Surgical History: Back Surgery, Coronary Bypass/CABG, Orthopedic Surgery, Tonsillectomy Additional Past Surgical History / Comment(s): PAIN CLINIC PROCEDURES,CABG 2 VESSEL 2004, maxwell cataracts,rt rotator cuff, rt hip/donna in place,"implanted monitor to monitor any cardic changes that could explain her syncopal episodes" Past Anesthesia/Blood Transfusion Reactions: Motion Sickness Past Psychological History: No Psychological Hx Reported Additional Psychological History / Comment(s): pt is a , was 51 years. 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 pt had hip sx recently .has home care nurse once a week and pt 2 times a week. Smoking Status: Never smoker Past Alcohol Use History: None Reported Past Drug Use History: None Reported - Past Family History Mother Family Medical History: Cancer Additional Family Medical History / Comment(s): LUNG cancer Father Family Medical History: Myocardial Infarction (NM) Additional Family Medical History / Comment(s): hardening of the arteries Medications and Allergies Home Medications Medication Instructions Recorded Confirmed Type Donepezil HCl [Aricept] 10 mg PO DAILY 01/07/21 01/11/21 History Memantine HCl [Memantine HCl ER] 28 mg PO DAILY 01/07/21 01/11/21 History Allergies Allergy/AdvReac Type Severity Reaction Status Date / Time Sulfa (Sulfonamide Allergy Unknown Verified 01/11/21 16:03 Antibiotics) nitrofurantoin AdvReac fainting Verified 01/11/21 16:03 [From Macrobid] Physical Exam Vitals: Vital Signs Temp Pulse Pulse Resp BP BP Pulse Ox 01/11/21 20:00 18 01/11/21 19:26 98.2 F 64 16 117/68 93 L 01/11/21 17:23 72 18 136/60 95 01/11/21 11:58 97.3 F L 66 16 154/75 95 Intake and Output 01/11/21 01/11/21 01/11/21 06:59 14:59 22:59 Other: Voiding Method Diaper Weight 47.627 kg 47.627 kg PHYSICAL EXAMINATION: Patient is lying in the bed comfortably, no acute distress, awake alert and oriented x2.. HEENT: Normocephalic. Neck is supple. Pupils reactive. Nostrils clear. Oral cavity is moist. Neck reveals no JVD, carotid bruits, or thyromegaly. CHEST EXAMINATION: Trachea is central. Symmetrical expansion. Lung cornell clear to auscultation and percussion. CARDIAC: Normal S1, S2 with no gallops. No murmurs ABDOMEN: Soft. Bowel sounds normal. No organomegaly. No abdominal bruits. Extremities: reveal no edema. No clubbing or cyanosis Neurologically awake, alert, oriented x1-2 with well-coordinated movements. No focal deficits noted Skin: No rash or skin lesions. Psychiatric: Cooperative. Could not be assessed completely. Musculoskeletal: No joint swelling or deformity. Normal range of motion. Results CBC & Chem 7: 01/11/21 12:47 01/11/21 12:47 Labs: Abnormal Lab Results - Last 24 Hours (Table) 01/11/21 01/11/21 01/11/21 Range/Units 12:47 12:47 12:47 WBC 11.2 H (3.8-10.6) k/uL RDW 15.9 H (11.5-15.5) % Neutrophils # 9.5 H (1.3-7.7) k/uL Lymphocytes # 0.6 L (1.0-4.8) k/uL Sodium 135 L (137-145) mmol/L Glucose 148 H (74-99) mg/dL Plasma Lactic Acid Paul (0.7-2.0) mmol/L Total Bilirubin 1.4 H (0.2-1.3) mg/dL Total Protein 6.1 L (6.3-8.2) g/dL Albumin 3.1 L (3.5-5.0) g/dL Urine Appearance Turbid H (Clear) Urine Protein 1+ H (Negative) Urine Blood Small H (Negative) Ur Leukocyte Esterase Large H (Negative) Urine RBC 19 H (0-5) /hpf Urine WBC >182 H (0-5) /hpf Urine Bacteria Many H (None) /hpf Urine Mucus Moderate H (None) /hpf 01/11/21 Range/Units 12:47 WBC (3.8-10.6) k/uL RDW (11.5-15.5) % Neutrophils # (1.3-7.7) k/uL Lymphocytes # (1.0-4.8) k/uL Sodium (137-145) mmol/L Glucose (74-99) mg/dL Plasma Lactic Acid Paul 2.3 H* (0.7-2.0) mmol/L Total Bilirubin (0.2-1.3) mg/dL Total Protein (6.3-8.2) g/dL Albumin (3.5-5.0) g/dL Urine Appearance (Clear) Urine Protein (Negative) Urine Blood (Negative) Ur Leukocyte Esterase (Negative) Urine RBC (0-5) /hpf Urine WBC (0-5) /hpf Urine Bacteria (None) /hpf Urine Mucus (None) /hpf Thrombosis Risk Factor Assmnt - DVT/VTE Prophylaxis DVT/VTE Prophylaxis: Pharmacologic Prophylaxis ordered - Choose All That Apply Any of the Below Risk Factors Present?: No Other Risk Factors: Yes Each Risk Factor Represents 3 Points: Age 75 years or older Other congenital or acquired thrombophilia - If yes, enter type in comment: No Thrombosis Risk Factor Assessment Total Risk Factor Score: 3 Thrombosis Risk Factor Assessment Level: Moderate Risk Assessment and Plan Assessment: Acute urinary tract infection Generalized weakness and lethargy Recent history of COVID-19 infection. Currently tested negative. Coronary disease history of CABG History of PE Hyperlipidemia Dementia History of urinary retentionself caths History of ESBL urinary tract infection DVT prophylaxis with heparin subcu Plan: Patient will be continued on IV hydration with normal saline and continue with antibiotics in the form of ceftriaxone and follow-up urine culture report. Continue with home medications and DVT prophylaxis. Continue to follow closely. PT OT will be consulted.
[2021-01-12] MEDS: DONEPEZIL 10 MG TAB PO SCH (08:28)
[2021-01-12] MEDS: MEMANTINE 10 MG TAB PO SCH ×2 (08:28→20:03)
[2021-01-12] MEDS: HEPARIN SODIUM,PORCINE/PF 5,000 UNIT/0.5 ML SYRINGE SQ SCH ×2 (08:28→20:03)
[2021-01-12 11:39] LABS: Basophils # (A) 0.05 X 10*3/uL (0.00-0.10); Basophils % (A) 0.6 %; Eosinophils # (A) 0.37 X 10*3/uL (0.04-0.35); Eosinophils % (A) 4.3 %; HCT 35.9 % (37.2-46.3); HGB 11.2 g/dL (12.0-15.0); Lymphocytes # (A) 0.69 X 10*3/uL (0.90-5.00); MCH 27.4 pg (27.0-32.0); MCHC 31.2 g/dL (32.0-37.0); MCV 87.8 fL (80.0-97.0); Mean Platelet Volume 11.1 fL (9.5-12.2); Monocytes # (A) 0.77 X 10*3/uL (0.20-1.00); Monocytes % (A) 8.9 %; Neutrophils % (A) 77.5 %; Platelet Count 206 X 10*3/uL (140-440); RBC 4.09 X 10*6/uL (4.10-5.20); RDW 15.9 % (11.5-14.5); WBC 8.64 X 10*3/uL (4.50-10.00)
[2021-01-12 12:11] LABS: Anion Gap 10.6 mmol/L (4.00-12.00); BUN/Creat Ratio 16.17 Ratio (12.00-20.00); Blood Urea Nitrogen 9.7 mg/dL (9.0-27.0); Carbon Dioxide 24.4 mmol/L (21.6-31.8); Non-African American GFR(CKD) 83.7 (60.0-200.0); Potassium 3.4 mmol/L (3.5-5.5)
[2021-01-12] MEDS: ACETAMINOPHEN TAB 325 MG TAB PO PRN (13:13)
[2021-01-12 15:00] VITALS: BMI 18.0
[2021-01-12] MEDS: POTASSIUM CHLORIDE ER 20 MEQ TAB.ER PO SCH ×2 (17:05→20:03)
[2021-01-12] MEDS ORDERED: VANCOMYCIN IV PER PHARMACY 1 EACH MISC MISCELLANE PRN ×2 (21:06→21:10)
[2021-01-12] MEDS ORDERED: VANCOMYCIN 750 MG in SODIUM CHLORIDE 0.9% 250 ML IVPB ONE (21:15)
[2021-01-13] MEDS: ACETAMINOPHEN TAB 325 MG TAB PO PRN ×2 (02:47→20:47)
[2021-01-13] MEDS: HEPARIN SODIUM,PORCINE/PF 5,000 UNIT/0.5 ML SYRINGE SQ SCH ×2 (09:04→20:56)
[2021-01-13] MEDS: MEMANTINE 10 MG TAB PO SCH ×2 (09:05→20:47)
[2021-01-13] MEDS: DONEPEZIL 10 MG TAB PO SCH (09:05)
[2021-01-13 09:38] LABS: RBC 4.03 X 10*6/uL (4.10-5.20); WBC 6.52 X 10*3/uL (4.50-10.00)
[2021-01-13 09:39] LABS: Basophils # (A) 0.08 X 10*3/uL (0.00-0.10); Basophils % (A) 1.2 %; Eosinophils # (A) 0.36 X 10*3/uL (0.04-0.35); Eosinophils % (A) 5.5 %; HCT 35.4 % (37.2-46.3); Lymphocytes # (A) 0.63 X 10*3/uL (0.90-5.00); Lymphocytes % (A) 9.7 %; MCH 27.3 pg (27.0-32.0); MCHC 31.1 g/dL (32.0-37.0); MCV 87.8 fL (80.0-97.0); Mean Platelet Volume 11.1 fL (9.5-12.2); Monocytes # (A) 0.62 X 10*3/uL (0.20-1.00); Monocytes % (A) 9.5 %; Neutrophils # (A) 4.79 X 10*3/uL (1.80-7.70); Neutrophils % (A) 73.5 %; Platelet Count 250 X 10*3/uL (140-440); RDW 15.8 % (11.5-14.5)
[2021-01-13 10:55] LABS: African American GFR (CKD) 78.5 (60.0-200.0); Anion Gap 9.2 mmol/L (4.00-12.00); BUN/Creat Ratio 14.38 Ratio (12.00-20.00); Blood Urea Nitrogen 11.5 mg/dL (9.0-27.0); Carbon Dioxide 23.8 mmol/L (21.6-31.8); Non-African American GFR(CKD) 67.7 (60.0-200.0); Potassium 3.6 mmol/L (3.5-5.5)
[2021-01-13] MEDS ORDERED: VANCOMYCIN 750 MG in SODIUM CHLORIDE 0.9% 250 ML IVPB SCH (15:00)
--- NOTE | 2021-01-13 15:56 | P.PN ---
Subjective Progress Note Date: 01/13/21 Patient is a 85-year-old female with known history of coronary disease status post CABG, hyperlipidemia, history of PE, history of urine retentionself caths and prior history of urinary tract infection with ESBL was brought to the hospital by her daughter due to complaints of generalized weakness and unable to ambulate. Patient was mainly brought to the hospital due to generalized weakness. Patient was seen in the ER couple days ago due to complaints of difficulty in breathing and was diagnosed with COVID-19 infection more than 2 weeks ago as per her daughter.. Patient does not know why she is in the hospital currently. Could not provide any history at this time. Chest x-ray showed possible bibasilar atelectasis, correlate to exclude pneumonia. Consider follow-up PA and lateral chest x-ray when patient is stable for better evaluation. Laboratory showed WBC 11.2 hemoglobin 11.9 and platelets 202 and lymphocytes 0.6 Sodium 135 potassium 3.6 chloride 102 bicarb 25 BUN 16 and creatinine 0.78 Lactic acid 2.8 on admission Total bilirubin level is 1.4 Urinalysis showed turbid with 1+ protein, small blood, large leukocytes trace and elevated WBCs and RBCs. COVID-19 PCR not detected. 01/13/2021 Patient is seen and evaluated in follow-up this morning with no acute overnight issues. Patient currently working with physical therapy at the bedside and continues to be quite weak and will discuss with family about home care or a rehab if patient continues to be weak. Patient currently on 2 L of oxygen and discuss with nursing staff about weaning FiO2 as tolerated. Patient had low i ntermittent temp of 100.1 early this morning and will continue to monitor closely. Labs: White blood count is 6.52, hemoglobin is 11.0, platelets are 250, sodium is 143, potassium is 3.6, creatinine is 0.8 Review of systems: Constitutional: No reports of fatigue, fever, or chills Cardiovascular: No reports of chest pain or palpitations Respiratory: No reports of worsening shortness of breath or cough GI: No reports of nausea, vomiting, or diarrhea : No reports of dysuria or retention Neurovascular: reports of weakness All medications have been reviewed Active Medications Acetaminophen (Acetaminophen Tab 325 Mg Tab) 650 mg PO Q6HR PRN PRN Reason: Fever and/ or Pain Last Admin: 01/13/21 02:47 Dose: 650 mg Documented by: Donepezil HCl (Donepezil 10 Mg Tab) 10 mg PO DAILY [facility] Last Admin: 01/13/21 09:05 Dose: 10 mg Documented by: Heparin Sodium (Porcine) (Heparin Sodium,Porcine/Pf 5,000 Unit/0.5 Ml Syringe) 5,000 unit SQ Q12HR [facility] Last Admin: 01/13/21 09:04 Dose: 5,000 unit Documented by: Ceftriaxone Sodium 2 gm/ (Sodium Chloride) 50 mls @ 100 mls/hr IVPB Q24H [facility] Last Admin: 01/13/21 15:37 Dose: 100 mls/hr Documented by: Memantine (Memantine 10 Mg Tab) 10 mg PO BID [facility] Last Admin: 01/13/21 09:05 Dose: 10 mg Documented by: Physical exam: Patient is sitting up at the side of the bed comfortably, no acute distress, awake alert and oriented x2.. HEENT: Normocephalic. Neck is supple. Pupils reactive. Nostrils clear. Oral c avity is moist. Neck reveals no JVD, carotid bruits, or thyromegaly. CHEST EXAMINATION: Trachea is central. Symmetrical expansion. Lung cornell clear to auscultation and percussion. CARDIAC: Normal S1, S2 with no gallops. No murmurs ABDOMEN: Soft. Bowel sounds normal. No organomegaly. No abdominal bruits. Extremities: reveal no edema. No clubbing or cyanosis Neurologically awake, alert, oriented x1-2 with well-coordinated movements. No focal deficits noted Skin: No rash or skin lesions. Psychiatric: Cooperative. Could not be assessed completely. Musculoskeletal: No joint swelling or deformity. Normal range of motion. Assessment: Acute urinary tract infection Generalized weakness and lethargy Recent history of COVID-19 infection. Currently tested negative. Coronary artery disease history of CABG History of PE Hyperlipidemia Dementia History of urinary retention, self caths History of ESBL urinary tract infection DVT prophylaxis with heparin subcu Plan: Patient will be continued on IV hydration with normal saline and continue with antibiotics in the form of ceftriaxone and follow-up urine culture report. Urine culture pulmonary showing gram-negative bacilli and waiting for finalization. Blood culture showing coagulase-negative staph most likely contaminant. Continue with home medications and DVT prophylaxis. Continue to follow closely. PT OT evaluated the patient recommending rehab and will discuss further with family about home care versus rehab in the outpatient setting. Will also discuss with case management about discharge planning needs. Objective - Vital Signs Vital signs: Vital Signs Temp 97.6 F 01/13/21 07:39 Pulse 60 01/13/21 07:54 Resp 16 01/13/21 07:54 BP 147/73 01/13/21 07:39 Pulse Ox 95 01/13/21 07:39 Intake & Output 01/12/21 01/13/21 01/13/21 18:59 06:59 18:59 Weight 47.627 kg Other: Voiding Method Diaper Diaper # Voids 5 2 - Labs CBC & Chem 7: 01/13/21 06:48 01/13/21 06:48 Labs: Abnormal Lab Results - Last 24 Hours (Table) 01/12/21 01/12/21 Range/Units 07:34 07:34 RBC 4.09 L (4.10-5.20) X 10*6/uL Hgb 11.2 L (12.0-15.0) g/dL Hct 35.9 L (37.2-46.3) % MCHC 31.2 L (32.0-37.0) g/dL RDW 15.9 H (11.5-14.5) % Immature Gran # 0.06 H (0.00-0.04) X 10*3/uL Lymphocytes # 0.69 L (0.90-5.00) X 10*3/uL Eosinophils # 0.37 H (0.04-0.35) X 10*3/uL Potassium 3.4 L (3.5-5.5) mmol/L Microbiology - Last 24 Hours (Table) 01/11/21 15:35 Blood Culture Gram Stain - Preliminary Blood Blood Culture - Preliminary Coagulase Negative Staph 01/11/21 12:47 Urine Culture - Preliminary Urine,Voided Gram Neg Bacilli 01/11/21 15:35 Blood Culture - Final Blood 01/11/21 15:35 Blood Culture - Preliminary Blood No Growth after 24 hours
--- NOTE | 2021-01-13 22:26 | P.PN ---
Subjective Progress Note Date: 01/12/21 Principal diagnosis: Acute urinary tract infection Generalized weakness and lethargy Patient is a 85-year-old female with known history of coronary disease status post CABG, hyperlipidemia, history of PE, history of urine retentionself caths and prior history of urinary tract infection with ESBL was brought to the hospital by her daughter due to complaints of generalized weakness and unable to ambulate. Patient was mainly brought to the hospital due to generalized weakness. Patient was seen in the ER couple days ago due to complaints of difficulty in breathing and was diagnosed with COVID-19 infection more than 2 weeks ago as per her daughter.. Patient does not know why she is in the hospital currently. Could not provide any history at this time. Chest x-ray showed possible bibasilar atelectasis, correlate to exclude pneumonia. Consider follow-up PA and lateral chest x-ray when patient is stable for better evaluation. Laboratory showed WBC 11.2 hemoglobin 11.9 and platelets 202 and lymphocytes 0.6 Sodium 135 potassium 3.6 chloride 102 bicarb 25 BUN 16 and creatinine 0.78 Lactic acid 2.8 on admission Total bilirubin level is 1.4 Urinalysis showed turbid with 1+ protein, small blood, large leukocytes trace and elevated WBCs and RBCs. COVID-19 PCR not detected. 01-12 Patient is currently resting in the bed. Awake alert and oriented. Able to answer questions slowly. Still feels very weak. Slight improvement compared to yesterday. Patient has been afebrile. No complaints of nausea vomiting or abdominal pain or diarrhea. No chest pain or shortness of breath. Patient is saturating well on room air. No headache or dizziness or lightheadedness. Laboratory data showed WBC count 8.6 hemoglobin 11.1 platelets 206 Sodium 142 potassium 3.4 chloride 107 BUN 9.7 and creatinine 0.6 and calcium 9.0 Current medications reviewed. Objective - Vital Signs Vital signs: Vital Signs Temp 99.4 F 01/13/21 19:41 Pulse 71 01/13/21 19:41 Resp 15 01/13/21 19:41 BP 118/64 01/13/21 19:41 Pulse Ox 94 L 01/13/21 19:41 Intake & Output 01/13/21 01/13/21 01/14/21 06:59 18:59 06:59 Intake Total 736 Balance 736 Intake: Intake, IV Titration 50 Amount cefTRIAXone 2 gm In 50 Sodium Chloride 0.9% 50 ml @ 100 mls/hr IVPB Q24H [facility] Rx#:[id number] Oral 686 Other: Voiding Method Diaper Diaper # Voids 2 3 - Exam PHYSICAL EXAMINATION: Patient is lying in the bed comfortably, no acute distress, awake alert and oriented x2.. HEENT: Normocephalic. Neck is supple. Pupils reactive. Nostrils clear. Oral cavity is moist. Neck reveals no JVD, carotid bruits, or thyromegaly. CHEST EXAMINATION: Trachea is central. Symmetrical expansion. Lung cornell clear to auscultation and percussion. CARDIAC: Normal S1, S2 with no gallops. No murmurs ABDOMEN: Soft. Bowel sounds normal. No organomegaly. No abdominal bruits. Extremities: reveal no edema. No clubbing or cyanosis Neurologically awake, alert, oriented x1-2 with well-coordinated movements. No focal deficits noted Skin: No rash or skin lesions. Psychiatric: Cooperative. Could not be assessed completely. Musculoskeletal: No joint swelling or deformity. Normal range of motion. - Labs CBC & Chem 7: 01/13/21 06:48 01/13/21 06:48 Labs: Abnormal Lab Results - Last 24 Hours (Table) 01/13/21 01/13/21 Range/Units 06:48 06:48 RBC 4.03 L (4.10-5.20) X 10*6/uL Hgb 11.0 L (12.0-15.0) g/dL Hct 35.4 L (37.2-46.3) % MCHC 31.1 L (32.0-37.0) g/dL RDW 15.8 H (11.5-14.5) % Lymphocytes # 0.63 L (0.90-5.00) X 10*3/uL Eosinophils # 0.36 H (0.04-0.35) X 10*3/uL Chloride 110 H (96-109) mmol/L Microbiology - Last 24 Hours (Table) 01/11/21 12:47 Urine Culture - Final Urine,Voided Escherichia coli 01/11/21 15:35 Blood Culture - Preliminary Blood No Growth after 48 hours 01/11/21 15:35 Blood Culture Gram Stain - Preliminary Blood Blood Culture - Preliminary Coagulase Negative Staph 01/11/21 15:35 Blood Culture - Final Blood Assessment and Plan Assessment: Acute urinary tract infection Generalized weakness and lethargy Recent history of COVID-19 infection. Currently tested negative. Coronary disease history of CABG History of PE Hyperlipidemia Dementia History of urinary retentionself caths History of ESBL urinary tract infection DVT prophylaxis with heparin subcu Plan: Patient will be continued on IV hydration with normal saline and continue with antibiotics in the form of ceftriaxone and follow-up urine culture report. Continue with home medications and DVT prophylaxis. Continue to follow closely. PT OT .. Time with Patient: Greater than 30
[2021-01-14] MEDS: MEMANTINE 10 MG TAB PO SCH ×2 (08:02→21:00)
[2021-01-14] MEDS: HEPARIN SODIUM,PORCINE/PF 5,000 UNIT/0.5 ML SYRINGE SQ SCH ×2 (08:02→20:59)
[2021-01-14] MEDS: DONEPEZIL 10 MG TAB PO SCH (08:02)
[2021-01-14 11:19] LABS: Basophils # (A) 0.07 X 10*3/uL (0.00-0.10); Basophils % (A) 1.2 %; Eosinophils % (A) 6.7 %; HCT 33.9 % (37.2-46.3); HGB 10.4 g/dL (12.0-15.0); Lymphocytes # (A) 0.72 X 10*3/uL (0.90-5.00); MCH 27.1 pg (27.0-32.0); MCHC 30.7 g/dL (32.0-37.0); MCV 88.3 fL (80.0-97.0); Neutrophils # (A) 4.19 X 10*3/uL (1.80-7.70); Neutrophils % (A) 69.6 %; Platelet Count 256 X 10*3/uL (140-440); RBC 3.84 X 10*6/uL (4.10-5.20); RDW 15.9 % (11.5-14.5); WBC 6.01 X 10*3/uL (4.50-10.00)
[2021-01-14] MEDS: ERTAPENEM 1 GM in SODIUM CHLORIDE 0.9% 50 ML IVPB SCH (11:31)
[2021-01-14 12:48] LABS: Appearance,Urine Cloudy (Clear); Bacteria,Urine Occasional /hpf; Bilirubin,Urine Negative (Negative); Blood,Urine Trace (Negative); Color,Urine Yellow; Glucose,Urine (UA) Negative (Negative); Ketones,Urine Negative (Negative); Leukocyte Esterase,Urine Large (Negative); Mucus,Urine Rare /hpf; Nitrite,Urine Negative (Negative); PH, Urine 6.5 (5.0-8.0); Protein,Urine Trace (Negative); RBC,Urine 2 /hpf (0-5); Specific Gravity,Urine 1.015 (1.001-1.035); Squamous Epithelial Cell,Urine 2 /hpf (0-4); Urobilinogen,Urine <2.0 mg/dL (<2.0); WBC,Urine >182 /hpf (0-5)
[2021-01-14 12:52] LABS: African American GFR (CKD) 87.7 (60.0-200.0); Anion Gap 11.3 mmol/L (4.00-12.00); BUN/Creat Ratio 11.08 Ratio (12.00-20.00); Blood Urea Nitrogen 8.1 mg/dL (9.0-27.0); Carbon Dioxide 23.9 mmol/L (21.6-31.8); Non-African American GFR(CKD) 75.6 (60.0-200.0); Potassium 3.6 mmol/L (3.5-5.5)
[2021-01-14] MEDS: ACETAMINOPHEN TAB 325 MG TAB PO PRN (20:00)
--- NOTE | 2021-01-15 01:11 | P.PN ---
Subjective Progress Note Date: 01/14/21 Patient is a 85-year-old female with known history of coronary disease status post CABG, hyperlipidemia, history of PE, history of urine retentionself caths and prior history of urinary tract infection with ESBL was brought to the hospital by her daughter due to complaints of generalized weakness and unable to ambulate. Patient was mainly brought to the hospital due to generalized weakness. Patient was seen in the ER couple days ago due to complaints of difficulty in breathing and was diagnosed with COVID-19 infection more than 2 weeks ago as per her daughter.. Patient does not know why she is in the hospital currently. Could not provide any history at this time. Chest x-ray showed possible bibasilar atelectasis, correlate to exclude pneumonia. Consider follow-up PA and lateral chest x-ray when patient is stable for better evaluation. Laboratory showed WBC 11.2 hemoglobin 11.9 and platelets 202 and lymphocytes 0.6 Sodium 135 potassium 3.6 chloride 102 bicarb 25 BUN 16 and creatinine 0.78 Lactic acid 2.8 on admission Total bilirubin level is 1.4 Urinalysis showed turbid with 1+ protein, small blood, large leukocytes trace and elevated WBCs and RBCs. COVID-19 PCR not detected. 01/13/2021 Patient is seen and evaluated in follow-up this morning with no acute overnight issues. Patient currently working with physical therapy at the bedside and continues to be quite weak and will discuss with family about home care or a rehab if patient continues to be weak. Patient currently on 2 L of oxygen and discuss with nursing staff about weaning FiO2 as tolerated. Patient had low i ntermittent temp of 100.1 early this morning and will continue to monitor closely. 01/14/2021 Patient is seen and evaluated in follow up today and urine culture has finalized showing ecoli with ESBL and patient was maintained on IV ceftriaxone. Infectious disease consulted and appreciate input and recommendations. Will repeat urinalysis and culture with straight cath specimen. Patient denies any burning or urinary frequency. Patient is tolerating diet and no reports of nausea or vomiting noted. Patient needs encouragement with meals. Social work following and discussing with family about discharge planning and possible ECF. Labs: BNP 358 Review of systems: Constitutional: No reports of fatigue, fever, or chills Cardiovascular: No reports of chest pain or palpitations Respiratory: No reports of worsening shortness of breath or cough GI: No reports of nausea, vomiting, or diarrhea : No reports of dysuria or retention Neurovascular: reports of weakness All medications have been reviewed Active Medications Acetaminophen (Acetaminophen Tab 325 Mg Tab) 650 mg PO Q6HR PRN PRN Reason: Fever and/ or Pain Last Admin: 01/13/21 20:47 Dose: 650 mg Documented by: Donepezil HCl (Donepezil 10 Mg Tab) 10 mg PO DAILY [facility] Last Admin: 01/14/21 08:02 Dose: 10 mg Documented by: Heparin Sodium (Porcine) (Heparin Sodium,Porcine/Pf 5,000 Unit/0.5 Ml Syringe) 5,000 unit SQ Q12HR [facility] Last Admin: 01/14/21 08:02 Dose: 5,000 unit Documented by: Ertapenem 1 gm/ Sodium (Chloride) 50 mls @ 100 mls/hr IVPB DAILY [facility]; Protocol Last Admin: 01/14/21 11:31 Dose: 100 mls/hr Documented by: Memantine (Memantine 10 Mg Tab) 10 mg PO BID [facility] Last Admin: 01/14/21 08:02 Dose: 10 mg Documented by: Physical exam: Patient is sitting up in bed comfortably, no acute distress, awake alert and oriented x2.. HEENT: Normocephalic. Neck is supple. Pupils reactive. Nostrils clear. Oral cavity is moist. Neck reveals no JVD, carotid bruits, or thyromegaly. CHEST EXAMINATION: Trachea is central. Symmetrical expansion. Lung cornell clear to auscultation and percussion. CARDIAC: Normal S1, S2 with no gallops. No murmurs ABDOMEN: Soft. Bowel sounds normal. No organomegaly. No abdominal bruits. Extremities: reveal no edema. No clubbing or cyanosis Neurologically awake, alert, oriented x1-2 with well-coordinated movements. diffusely weak Skin: No rash or skin lesions. Psychiatric: Cooperative. Musculoskeletal: No joint swelling or deformity. Normal range of motion. Assessment: Acute urinary tract infection, urine culture showing ESBL ecoli Generalized weakness and lethargy Recent history of COVID-19 infection. Currently tested negative. Coronary artery disease history of CABG History of PE Hyperlipidemia Dementia History of urinary retention, self caths History of ESBL urinary tract infection DVT prophylaxis with heparin subcu Plan: Patient will be continued on IV antibiotics in the form of Invanz and will repeat urine with culture. Infectious disease consulted as urine cultures finalized with E. coli and ESBL. Continue with home medications and DVT prophylaxis. Continue to follow closely. PT OT evaluated the patient recom mending rehab and will discuss further with family about home care versus rehab in the outpatient setting. Will also discuss with social work about discharge planning needs. Objective - Vital Signs Vital signs: Vital Signs Temp 98.1 F 01/14/21 07:05 Pulse 61 01/14/21 07:05 Resp 17 01/14/21 07:05 BP 162/74 01/14/21 07:05 Pulse Ox 92 L 01/14/21 07:05 Intake & Output 01/13/21 01/14/21 01/14/21 18:59 06:59 18:59 Intake Total 736 160 Output Total 200 Balance 736 -40 Intake: Intake, IV Titration 50 Amount cefTRIAXone 2 gm In 50 Sodium Chloride 0.9% 50 ml @ 100 mls/hr IVPB Q24H [facility] Rx#:[id number] Oral 686 160 Output: Urine 200 Other: Voiding Method Diaper External Catheter # Voids 3 - Labs CBC & Chem 7: 01/14/21 07:21 01/14/21 07:21 Labs: Abnormal Lab Results - Last 24 Hours (Table) 01/13/21 01/13/21 Range/Units 06:48 06:48 RBC 4.03 L (4.10-5.20) X 10*6/uL Hgb 11.0 L (12.0-15.0) g/dL Hct 35.4 L (37.2-46.3) % MCHC 31.1 L (32.0-37.0) g/dL RDW 15.8 H (11.5-14.5) % Lymphocytes # 0.63 L (0.90-5.00) X 10*3/uL Eosinophils # 0.36 H (0.04-0.35) X 10*3/uL Chloride 110 H (96-109) mmol/L Microbiology - Last 24 Hours (Table) 01/11/21 12:47 Urine Culture - Final Urine,Voided Escherichia coli 01/11/21 15:35 Blood Culture - Preliminary Blood No Growth after 48 hours 01/11/21 15:35 Blood Culture Gram Stain - Preliminary Blood Blood Culture - Preliminary Coagulase Negative Staph
[2021-01-15 07:30] LABS: African American GFR (CKD) >90 (>60 ml/min/1.73 sqM); Anion Gap 2 mmol/L; Blood Urea Nitrogen 10 mg/dL (7-17); Calcium 9.4 mg/dL (8.4-10.2); Carbon Dioxide 32 mmol/L (22-30); Chloride 106 mmol/L (98-107); Glucose 106 mg/dL (74-99); Non-African American GFR(CKD) 83 (>60 ml/min/1.73 sqM); Potassium 3.5 mmol/L (3.5-5.1); Sodium 140 mmol/L (137-145)
[2021-01-15 07:54] LABS: Anisocytosis Slight; Basophils % (A) 1 %; Eosinophils # (A) 0.4 k/uL (0-0.7); Eosinophils % (A) 7 %; HCT 35.1 % (34.0-46.0); HGB 11.6 gm/dL (11.4-16.0); Lymphocytes # (A) 0.8 k/uL (1.0-4.8); Lymphocytes % (A) 14 %; MCH 28.6 pg (25.0-35.0); MCHC 33.2 g/dL (31.0-37.0); MCV 86.3 fL (80.0-100.0); Mean Platelet Volume 8.1; Monocytes # (A) 0.4 k/uL (0-1.0); Monocytes % (A) 7 %; Neutrophils # (A) 3.8 k/uL (1.3-7.7); Neutrophils % (A) 69 %; Platelet Count 308 k/uL (150-450); RBC 4.06 m/uL (3.80-5.40); RDW 16.2 % (11.5-15.5); WBC 5.4 k/uL (3.8-10.6)
[2021-01-15] MEDS: amLODIPine 5 MG TAB PO SCH (08:50)
[2021-01-15] MEDS: ERTAPENEM 1 GM in SODIUM CHLORIDE 0.9% 50 ML IVPB SCH (08:50)
[2021-01-15] MEDS: MEMANTINE 10 MG TAB PO SCH ×2 (08:50→20:22)
[2021-01-15] MEDS: HEPARIN SODIUM,PORCINE/PF 5,000 UNIT/0.5 ML SYRINGE SQ SCH ×2 (08:50→20:22)
[2021-01-15] MEDS: DOCUSATE 100 MG CAP PO SCH (08:50)
[2021-01-15] MEDS: DONEPEZIL 10 MG TAB PO SCH (08:50)
--- NOTE | 2021-01-15 09:23 | P.CONS ---
History of Present Illness - Reason for Consult Consult date: 01/14/21 ESBL UTI Requesting physician: Leia Avalos - Chief Complaint weakness and fever x few days - History of Present Illness History of present illness : Patient is 85-year-old female presenting to the ER 3 days ago for evaluation of generalized weakness and inability to move around patient was noted to be slightly confused per the daughter providing most of the history may symptom has been weakness and cannot stand on her own patient have been complaining of some dark concentrated urine with decreased amount and some suprapubic discomfort but no flank pain nausea decreased oral intake but no vomiting patient on presentation to the hospital was afebrile sub sequently did spike a fever 100.1 F patient did have a white count of 11.2 on admission subsequently normalized patient did have a positive UA with large leukocyte esterase more than 22 WBC timmons PCR was negative patient has been treated with Rocephin with the urine culture finalized with ESBL E. coli that has prompted this infectious disease consultation patient also have a positive blood culture with a gram-positive cocci and she was treated with IV vancomycin which was subsequently discontinued after the culture was finalized with coagulase-negative staph Review of system: CONSTITUTIONAL: Positive for weakness along with the fever. EYES: No complaint. ENT: No complaint. RESPIRATORY: No complaint. CARDIOVASCULAR: No complaint. GENITOURINARY: As per history of present illness. GASTROINTESTINAL: As per history of present illness. MUSCULOSKELETAL: No complaint. INTEGUMENTARY: No complaint. PSYCHOLOGIC: No complaint. ENDOCRINE: No complaint. NEUROLOGIC: No complaint. Past medical history : Reviewed, documented below Past surgical history : Reviewed, documented below Social history: Reviewed, documented below Medications: Reviewed, as documented below EXAMINATION: Vital sigans= Reviewed and documented below GENERAL DESCRIPTION: Elderly female lying in bed, no distress. No tachypnea or accessory muscle of respiration use. HEENT: Shows Pallor , no scleral icterus. Oral mucous membrane is dry. NECK: Trachea central, no thyromegaly. LUNGS: Unlabored breathing. Clear to auscultation anteriorly. No wheeze or crackle. HEART: S1, S2, regular rate and rhythm. ABDOMEN: Soft, no tenderness , guarding or rigidity EXTREMITIES: No edema of feet. SKIN: No rash, no masses palpable. NEUROLOGICAL: The patient is awake, alert, oriented x3, mood and affect normal. LABS AND RADIOLOGY: Reviewed results see below Assessment : Patient presented to hospital with generalized weakness no energy patient did have a low-grade fever elevated white count significantly positive UA and urinary symptoms likely related to symptomatic urinary tract infection with a urine has been finalized with an ESBL however the patient did have some improvement with Rocephin with a question of possible contaminant versus real pathogen Plan: 1-we will repeat a UA and culture obtain clean-catch sample please 2-discontinue Rocephin 3-start the patient on Invanz 1 g daily while waiting for the repeat urine to be finalized Daughter at the bedside she has multiple questions were answered and hematoma We will follow on clinical condition and cultures to further adjust medication if needed Thank you for this consultation we will follow the patient along with you Past Medical History Past Medical History: Coronary Artery Disease (CAD), Hyperlipidemia, Pulmonary Embolus (PE) Additional Past Medical History / Comment(s): SEE DR BAUER'S H&P,FREQ DIZZINESS,FREQ UTI'S, urinary retention -self caths, constipation, shingles 10 years ago, osteoporosis History of Any Multi-Drug Resistant Organisms: ESBL Year Discovered:: 04/04/18 MDRO Source:: ESBL URINE Past Surgical History: Back Surgery, Coronary Bypass/CABG, Orthopedic Surgery, Tonsillectomy Additional Past Surgical History / Comment(s): PAIN CLINIC PROCEDURES,CABG 2 VESSEL 2004, maxwell cataracts,rt rotator cuff, rt hip/donna in place,"implanted m onitor to monitor any cardic changes that could explain her syncopal episodes" Past Anesthesia/Blood Transfusion Reactions: Motion Sickness Past Psychological History: No Psychological Hx Reported Additional Psychological History / Comment(s): pt is a , was 51 years. 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 pt had hip sx recently .has home care nurse once a week and pt 2 times a week. Smoking Status: Never smoker Past Alcohol Use History: None Reported Past Drug Use History: None Reported - Past Family History Mother Family Medical History: Cancer Additional Family Medical History / Comment(s): LUNG cancer Father Family Medical History: Myocardial Infarction ([place]) Additional Family Medical History / Comment(s): hardening of the arteries Medications and Allergies Home Medications Medication Instructions Recorded Confirmed Type Donepezil HCl [Aricept] 10 mg PO DAILY 01/07/21 01/11/21 History Memantine HCl [Memantine HCl ER] 28 mg PO DAILY 01/07/21 01/11/21 History Allergies Allergy/AdvReac Type Severity Reaction Status Date / Time Sulfa (Sulfonamide Allergy Unknown Verified 01/11/21 16:03 Antibiotics) nitrofurantoin AdvReac fainting Verified 01/11/21 16:03 [From Macrobid] Physical Exam Vitals: Vital Signs Temp Pulse Resp BP Pulse Ox 01/14/21 07:05 98.1 F 61 17 162/74 92 L 01/14/21 02:00 97.4 F L 63 16 154/69 94 L 01/13/21 20:00 71 15 01/13/21 19:41 99.4 F 71 15 118/64 94 L 01/13/21 14:00 99.7 F H 84 16 134/77 94 L Intake and Output 01/13/21 01/14/21 01/14/21 22:59 06:59 14:59 Intake Total 736 160 Output Total 200 Balance 736 -40 Intake: Intake, IV Titration 50 Amount cefTRIAXone 2 gm In 50 Sodium Chloride 0.9% 50 ml @ 100 mls/hr IVPB Q24H [facility] Rx#:[id number] Oral 686 160 Output: Urine 200 Other: Voiding Method External Catheter External Catheter # Voids 3 Results CBC & Chem 7: 01/15/21 07:02 01/15/21 07:02 Labs: Abnormal Lab Results - Last 24 Hours (Table) 01/13/21 Range/Units 06:48 Chloride 110 H (96-109) mmol/L Microbiology - Last 24 Hours (Table) 01/13/21 06:48 Blood Culture - Preliminary Blood No Growth after 24 hours 01/11/21 12:47 Urine Culture - Final Urine,Voided Escherichia coli 01/11/21 15:35 Blood Culture - Preliminary Blood No Growth after 48 hours 01/11/21 15:35 Blood Culture Gram Stain - Preliminary Blood Blood Culture - Preliminary Coagulase Negative Staph
--- NOTE | 2021-01-15 15:02 | P.PN ---
Subjective Progress Note Date: 01/15/21 Patient is a 85-year-old female with known history of coronary disease status post CABG, hyperlipidemia, history of PE, history of urine retentionself caths and prior history of urinary tract infection with ESBL was brought to the hospital by her daughter due to complaints of generalized weakness and unable to ambulate. Patient was mainly brought to the hospital due to generalized weakness. Patient was seen in the ER couple days ago due to complaints of difficulty in breathing and was diagnosed with COVID-19 infection more than 2 weeks ago as per her daughter.. Patient does not know why she is in the hospital currently. Could not provide any history at this time. Chest x-ray showed possible bibasilar atelectasis, correlate to exclude pneumonia. Consider follow-up PA and lateral chest x-ray when patient is stable for better evaluation. Laboratory showed WBC 11.2 hemoglobin 11.9 and platelets 202 and lymphocytes 0.6 Sodium 135 potassium 3.6 chloride 102 bicarb 25 BUN 16 and creatinine 0.78 Lactic acid 2.8 on admission Total bilirubin level is 1.4 Urinalysis showed turbid with 1+ protein, small blood, large leukocytes trace and elevated WBCs and RBCs. COVID-19 PCR not detected. 01/13/2021 Patient is seen and evaluated in follow-up this morning with no acute overnight issues. Patient currently working with physical therapy at the bedside and continues to be quite weak and will discuss with family about home care or a rehab if patient continues to be weak. Patient currently on 2 L of oxygen and discuss with nursing staff about weaning FiO2 as tolerated. Patient had low i ntermittent temp of 100.1 early this morning and will continue to monitor closely. 01/14/2021 Patient is seen and evaluated in follow up today and urine culture has finalized showing ecoli with ESBL and patient was maintained on IV ceftriaxone. Infectious disease consulted and appreciate input and recommendations. Will repeat urinalysis and culture with straight cath specimen. Patient denies any burning or urinary frequency. Patient is tolerating diet and no reports of nausea or vomiting noted. Patient needs encouragement with meals. Social work following and discussing with family about discharge planning and possible ECF. 01/15/2021 Patient is seen in follow-up this morning asking to go home. Patient will be going home with daughter although waiting for finalized cultures from repeat urinalysis to results. Patient is maintained on IV Invanz with infectious disease following. Repeat blood cultures have been negative. Patient is afebrile. Patient denies any burning or frequency with urination. Patient's blood pressure is elevated and added low-dose Norvasc and will increase in continue to monitor. Labs: White blood count is 5.4, hemoglobin is 11.6, platelets are 308, sodium is 140, potassium is 3.5, creatinine is 0.62, magnesium is 2.0 Review of systems: Constitutional: No reports of fatigue, fever, or chills Cardiovascular: No reports of chest pain or palpitations Respiratory: No reports of worsening shortness of breath or cough GI: No reports of nausea, vomiting, or diarrhea : No reports of dysuria or retention Neurovascular: reports of weakness All medications have been reviewed Active Medications Acetaminophen (Acetaminophen Tab 325 Mg Tab) 650 mg PO Q6HR PRN PRN Reason: Fever and/ or Pain Last Admin: 01/14/21 20:00 Dose: 650 mg Documented by: Amlodipine Besylate (Amlodipine 5 Mg Tab) 5 mg PO DAILY [facility] Last Admin: 01/15/21 08:50 Dose: 5 mg Documented by: Docusate Sodium (Docusate 100 Mg Cap) 100 mg PO DAILY [facility] Last Admin: 01/15/21 08:50 Dose: 100 mg Documented by: Donepezil HCl (Donepezil 10 Mg Tab) 10 mg PO DAILY [facility] Last Admin: 01/15/21 08:50 Dose: 10 mg Documented by: Heparin Sodium (Porcine) (Heparin Sodium,Porcine/Pf 5,000 Unit/0.5 Ml Syringe) 5,000 unit SQ Q12HR [facility] Last Admin: 01/15/21 08:50 Dose: 5,000 unit Documented by: Ertapenem 1 gm/ Sodium (Chloride) 50 mls @ 100 mls/hr IVPB DAILY [facility]; Protocol Last Admin: 01/15/21 08:50 Dose: 100 mls/hr Documented by: Memantine (Memantine 10 Mg Tab) 10 mg PO BID [facility] Last Admin: 01/15/21 08:50 Dose: 10 mg Documented by: Physical exam: Patient is sitting up in bed comfortably, no acute distress, awake alert and oriented x2.. HEENT: Normocephalic. Neck is supple. Pupils reactive. Nostrils clear. Oral cavity is moist. Neck reveals no JVD, carotid bruits, or thyromegaly. CHEST EXAMINATION: Trachea is central. Symmetrical expansion. Lung cornell clear to auscultation and percussion. CARDIAC: Normal S1, S2 with no gallops. No murmurs ABDOMEN: Soft. Bowel sounds normal. No organomegaly. No abdominal bruits. Extremities: reveal no edema. No clubbing or cyanosis Neurologically awake, alert, oriented x1-2 with well-coordinated movements. diffusely weak Skin: No rash or skin lesions. Psychiatric: Cooperative. Musculoskeletal: No joint swelling or deformity. Normal range of motion. Assessment: Acute urinary tract infection, urine culture showing ESBL ecoli Generalized weakness and lethargy Recent history of COVID-19 infection. Currently tested negative. Coronary artery disease history of CABG History of PE Hyperlipidemia Dementia History of urinary retention, self caths History of ESBL urinary tract infection DVT prophylaxis with heparin subcu Plan: Patient will be continued on IV antibiotics in the form of Invanz and will repeat urine with culture. Infectious disease consulted and following as urine cultures finalized with E. coli and ESBL. Continue with home medications and DVT prophylaxis. Continue to follow closely. PT OT evaluated the patient recommending rehab and family will be taking the patient home and will require a hospital bed as patient continues to be weak and having difficulty getting up and out of the bed and does have dyspnea with exertion most recently related to over 19 pneumonia. Will also discuss with social work about discharge planning needs. Objective - Vital Signs Vital signs: Vital Signs Temp 97.9 F 01/15/21 02:00 Pulse 72 01/15/21 02:00 Resp 15 01/15/21 02:00 BP 163/79 01/15/21 02:00 Pulse Ox 95 01/15/21 02:00 Intake & Output 01/14/21 01/15/21 01/15/21 18:59 06:59 18:59 Intake Total 120 Output Total 400 Balance -280 Intake: Oral 120 Output: Urine 400 Other: Voiding Method External Catheter External Catheter - Labs CBC & Chem 7: 01/15/21 07:02 01/15/21 07:02 Labs: Abnormal Lab Results - Last 24 Hours (Table) 01/14/21 01/14/21 01/14/21 Range/Units : 07:21 12:00 RBC 3.84 L (4.10-5.20) X 10*6/uL Hgb 10.4 L (12.0-15.0) g/dL Hct 33.9 L (37.2-46.3) % MCHC 30.7 L (32.0-37.0) g/dL RDW 15.9 H (11.5-14.5) % Lymphocytes # 0.72 L (0.90-5.00) X 10*3/uL Eosinophils # 0.40 H (0.04-0.35) X 10*3/uL Carbon Dioxide (22-30) mmol/L BUN 8.1 L (9.0-27.0) mg/dL BUN/Creatinine Ratio 11.08 L (12.00-20.00) Ratio Glucose (74-99) mg/dL Urine Appearance Cloudy H (Clear) Urine Protein Trace H (Negative) Urine Blood Trace H (Negative) Ur Leukocyte Esterase Large H (Negative) Urine WBC >182 H (0-5) /hpf Urine Bacteria Occasional H (None) /hpf Urine Mucus Rare H (None) /hpf 01/15/21 01/15/21 Range/Units 07:02 07:02 RBC (4.10-5.20) X 10*6/uL Hgb (12.0-15.0) g/dL Hct (37.2-46.3) % MCHC (32.0-37.0) g/dL RDW 16.2 H (11.5-14.5) % Lymphocytes # 0.8 L (0.90-5.00) X 10*3/uL Eosinophils # (0.04-0.35) X 10*3/uL Carbon Dioxide 32 H (22-30) mmol/L BUN (9.0-27.0) mg/dL BUN/Creatinine Ratio (12.00-20.00) Ratio Glucose 106 H (74-99) mg/dL Urine Appearance (Clear) Urine Protein (Negative) Urine Blood (Negative) Ur Leukocyte Esterase (Negative) Urine WBC (0-5) /hpf Urine Bacteria (None) /hpf Urine Mucus (None) /hpf Microbiology - Last 24 Hours (Table) 01/14/21 12:00 Urine Culture - Preliminary Urine,Voided 01/11/21 15:35 Blood Culture - Preliminary Blood No Growth after 72 hours 01/13/21 06:48 Blood Culture - Preliminary Blood No Growth after 24 hours
--- NOTE | 2021-01-15 18:08 | PN ---
PROGRESS NOTE DATE OF SERVICE: 01/15/2021 REASON FOR FOLLOWUP: ESBL E coli urinary tract infection. INTERVAL HISTORY: The patient is afebrile. The patient is breathing slightly comfortably. The patient denies having any chest pain. No shortness of breath. No abdominal pain or diarrhea. PHYSICAL EXAMINATION: Blood pressure 158/75 with a pulse of 74, temperature 98. She is 95% on room air. General description is an elderly female lying in bed in no distress. Respiratory system: Unlabored breathing, clear to auscultation anteriorly. Heart S1, S2. Regular rate and rhythm. Abdomen soft, no tenderness. LABS: Hemoglobin 11.1, white count of 5.4, creatinine 0.62. Repeat urine is positive, culture pending. DIAGNOSTIC IMPRESSION AND PLAN: Patient admitted to the hospital with weakness, mental status changes concerning for asymptomatic UTI. Initial culture with ESBL E coli. Repeat cultures currently pending. Patient to continue with Invanz with the discharge antibiotic on the basis of culture report. Continue supportive care. MMODL / IJN: [id number] /
[2021-01-16] MEDS: ERTAPENEM 1 GM in SODIUM CHLORIDE 0.9% 50 ML IVPB SCH (07:25)
[2021-01-16] MEDS: MEMANTINE 10 MG TAB PO SCH ×2 (08:55→20:49)
[2021-01-16] MEDS: DOCUSATE 100 MG CAP PO SCH (08:55)
[2021-01-16] MEDS: DONEPEZIL 10 MG TAB PO SCH (08:55)
[2021-01-16] MEDS: amLODIPine 5 MG TAB PO SCH (08:55)
[2021-01-16] MEDS: HEPARIN SODIUM,PORCINE/PF 5,000 UNIT/0.5 ML SYRINGE SQ SCH ×2 (08:55→20:49)
[2021-01-16] MEDS: polyethylene glycoL 3350 17 GM POWD.PACK PO SCH (17:35)
--- NOTE | 2021-01-16 18:51 | PN ---
PROGRESS NOTE DATE OF SERVICE: 01/16/2021 REASON FOR FOLLOWUP: ESBL E coli urinary tract infection. INTERVAL HISTORY: The patient is afebrile. The patient is feeling better. Breathing comfortably. The patient denies having any chest pain. No shortness of breath or cough. NO abdominal pain, no diarrhea. PHYSICAL EXAMINATION: Blood pressure 145/67, pulse of 70, temperature 97.4. She is 97% on room air. General description is an elderly female lying in bed in no distress. Respiratory system: Unlabored breathing, clear to auscultation anteriorly. Heart S1, S2. Regular rate and rhythm. Abdomen soft, no tenderness. Extremities: No edema of the feet. LABS: No new labs have been obtained today. Repeat urine showing Gram-negative. DIAGNOSTIC PET: Patient ESBL E coli urinary tract infection, possible cystitis. Covered with Invanz. Waiting for the repeat culture to finalize. May not need IV antibiotic on discharge. Family at the bedside. Questions were answered. MMODL / IJN: [id number] /
[2021-01-17] MEDS: ERTAPENEM 1 GM in SODIUM CHLORIDE 0.9% 50 ML IVPB SCH (06:57)
[2021-01-17] MEDS: HEPARIN SODIUM,PORCINE/PF 5,000 UNIT/0.5 ML SYRINGE SQ SCH ×2 (09:00→21:21)
[2021-01-17] MEDS: DOCUSATE 100 MG CAP PO SCH (09:00)
[2021-01-17] MEDS: amLODIPine 5 MG TAB PO SCH (09:00)
[2021-01-17] MEDS: MEMANTINE 10 MG TAB PO SCH ×2 (09:00→21:21)
[2021-01-17] MEDS: polyethylene glycoL 3350 17 GM POWD.PACK PO SCH (09:00)
[2021-01-17] MEDS: DONEPEZIL 10 MG TAB PO SCH (09:00)
--- NOTE | 2021-01-17 20:31 | PN ---
PROGRESS NOTE DATE OF SERVICE: 01/17/2021 REASON FOR FOLLOWUP: ESBL E coli urinary tract infection. INTERVAL HISTORY: The patient is afebrile. The patient is breathing comfortably. The patient denies having any chest pain or shortness of breath or cough. No abdominal pain or diarrhea. PHYSICAL EXAMINATION: Her blood pressure is 122/70 with a pulse of 91, temperature 98.3. She is 95% on 3 L nasal cannula. General description is an elderly female lying in bed in no distress. RESPIRATORY SYSTEM: Unlabored breathing. Clear to auscultation anteriorly. HEART: S1, S2. Regular rate and rhythm. ABDOMEN: Soft. No tenderness. LABS: Hemoglobin is 11.6, white count of 5.4. Creatinine is 0.62. Repeat urine positive for ESBL but low colony count. DIAGNOSTIC IMPRESSION AND PLAN: Patient with ESBL Escherichia coli urinary tract infection, adequately treated. More likely cystitis. Has received about 4-5 days of antibiotic. Antibiotic can be safely discontinued after tomorrow's dose. Continue with supportive care. MMODL / IJN: [id number] /
[2021-01-17 22:45] VITALS: RESP 16
[2021-01-18 09:18] VITALS: PULSE 66
[2021-01-18] MEDS: ERTAPENEM 1 GM in SODIUM CHLORIDE 0.9% 50 ML IVPB SCH (09:33)
[2021-01-18] MEDS: amLODIPine 5 MG TAB PO SCH (09:33)
[2021-01-18] MEDS: DOCUSATE 100 MG CAP PO SCH (09:33)
[2021-01-18] MEDS: DONEPEZIL 10 MG TAB PO SCH (09:33)
[2021-01-18] MEDS: HEPARIN SODIUM,PORCINE/PF 5,000 UNIT/0.5 ML SYRINGE SQ SCH (09:33)
[2021-01-18] MEDS: MEMANTINE 10 MG TAB PO SCH (09:34)
[2021-01-18] MEDS: polyethylene glycoL 3350 17 GM POWD.PACK PO SCH (09:34)
[2021-01-18 10:55] LABS: Basophils # (A) 0.07 X 10*3/uL (0.00-0.10); Eosinophils # (A) 0.31 X 10*3/uL (0.04-0.35); Eosinophils % (A) 4.5 %; HCT 34.7 % (37.2-46.3); HGB 10.9 g/dL (12.0-15.0); Lymphocytes # (A) 1.25 X 10*3/uL (0.90-5.00); Lymphocytes % (A) 18.1 %; MCH 27.9 pg (27.0-32.0); MCHC 31.4 g/dL (32.0-37.0); MCV 88.7 fL (80.0-97.0); Mean Platelet Volume 10.2 fL (9.5-12.2); Monocytes # (A) 0.74 X 10*3/uL (0.20-1.00); Monocytes % (A) 10.7 %; Neutrophils # (A) 4.49 X 10*3/uL (1.80-7.70); Neutrophils % (A) 64.8 %; Platelet Count 321 X 10*3/uL (140-440); RBC 3.91 X 10*6/uL (4.10-5.20); RDW 16.3 % (11.5-14.5); WBC 6.92 X 10*3/uL (4.50-10.00)
[2021-01-18 11:29] LABS: African American GFR (CKD) 83.4 (60.0-200.0); Anion Gap 8.2 mmol/L (4.00-12.00); BUN/Creat Ratio 17.08 Ratio (12.00-20.00); Calcium 9.5 mg/dL (8.7-10.3); Carbon Dioxide 30.4 mmol/L (21.6-31.8); Non-African American GFR(CKD) 71.9 (60.0-200.0); Potassium 3.9 mmol/L (3.5-5.5)
--- NOTE | 2021-01-18 14:21 | PN ---
PROGRESS NOTE DATE OF SERVICE: 01/18/2021 REASON FOR FOLLOWUP: ESBL E coli urinary tract infection. INTERVAL HISTORY: The patient is afebrile. The patient is feeling better, breathing comfortably. Denies having any chest pain or shortness of breath or cough. No abdominal pain or diarrhea. PHYSICAL EXAMINATION: Blood pressure 120/70 with a pulse of 66, temperature 97.9. She is 94% on room air. General description is an elderly female lying in bed in no distress. Respiratory system: Unlabored breathing, clear to auscultation anteriorly. Heart S1, S2. Regular rate and rhythm. Abdomen soft, no tenderness. LABS: Repeat urine is positive but low colony count for ESBL. DIAGNOSTIC IMPRESSION AND PLAN: Patient with ESBL Escherichia coli urinary tract infection, more likely cystitis, has received about 5 days of antibiotic; should be enough. No need for antibiotic on discharge. Continue supportive care. MMODL / IJN: [id number] /
--- NOTE | 2021-01-18 14:52 | XR ---
EXAMINATION TYPE: XR foot complete LT DATE OF EXAM: 01/18/2021 COMPARISON: NONE HISTORY: Pain TECHNIQUE: Three views are submitted. FINDINGS: The osseous structures are intact. There is no acute fracture or dislocation. Diffuse osteopenia. Assessment phalanges limited due to positioning. Hammertoe deformities are noted. Small plantar calca idalia spur. Diffuse osteopenia and vascular calcifications. Mild narrowing of all MTP, PIP and DIP keo nts with no evidence of erosion. IMPRESSION: 1. No acute fracture or dislocation. If symptoms persist, follow-up exam in 7 to 10 days could be ob tained. 2. Diffuse osteopenia and arthropathy.
[2021-01-18 16:48] VITALS: BP 151/78; TEMP 97.8
== END 2021-01-18 17:00 | disposition home health service (06) | DRG 690 ==
LOC: EC 11:53 → 4SSUR 15:29
PROVIDERS: ADMIT Internal Medicine; ATTEND Internal Medicine
DX: N30.90 Cystitis, unspecified without hematuria (principal); Z16.12 Extended spectrum beta lactamase (ESBL) resistance; Z16.24 Resistance to multiple antibiotics; E78.5 Hyperlipidemia, unspecified; E86.0 Dehydration; Z20.822 Contact with and (suspected) exposure to COVID-19; F03.90 Unspecified dementia, unspecified severity, without behavioral disturbance, psychotic disturbance, mood disturbance, and anxiety; I25.10 Atherosclerotic heart disease of native coronary artery without angina pectoris; M81.0 Age-related osteoporosis without current pathological fracture; Z95.1 Presence of aortocoronary bypass graft; Z82.49 Family history of ischemic heart disease and other diseases of the circulatory system; Z86.16 Personal history of COVID-19; Z79.899 Other long term (current) drug therapy; Z86.711 Personal history of pulmonary embolism; B96.20 Unspecified Escherichia coli [E. coli] as the cause of diseases classified elsewhere; Z80.1 Family history of malignant neoplasm of trachea, bronchus and lung; Z87.440 Personal history of urinary (tract) infections
CPT/HCPCS: 36415; 71046; 80048; 80053; 81001; 83605; 83735; 84484; 85025; 85610; 85730; 87040; 87077; 87086; 87186; 87635; 93005; 99285

== ENCOUNTER 2021-07-09 11:48 | Emergency (ER) | payer MEDICARE, BC ==
--- NOTE | 2021-07-09 12:52 | ED ---
General Adult HPI - General Chief complaint: Recheck/Abnormal Lab/Rx Stated complaint: Hypertension Time Seen by Provider: 07/09/21 12:27 Source: patient, RN notes reviewed, old records reviewed Mode of arrival: ambulatory Limitations: no limitations - History of Present Illness Initial comments: 85-year-old female presenting for evaluation of hypertension. Patient has history of dementia. She has no complaints. She is accompanied by her daughter who is able to give history. Patient does not take any antihypertensive medications. She has no complaints. No headache. No abdominal pain or chest pain. No fever. She has been eating and drinking. She recently started prednisone for a rash. She is also currently on antibiotics for UTI. - Related Data Home Medications Medication Instructions Recorded Confirmed Donepezil HCl [Aricept] 10 mg PO DAILY 01/07/21 01/11/21 Memantine HCl [Memantine HCl ER] 28 mg PO DAILY 01/07/21 01/11/21 Allergies Allergy/AdvReac Type Severity Reaction Status Date / Time Sulfa (Sulfonamide Allergy Unknown Verified 07/09/21 11:57 Antibiotics) nitrofurantoin AdvReac fainting Verified 07/09/21 11:57 [From Macrobid] Review of Systems ROS Statement: Those systems with pertinent positive or pertinent negative responses have been documented in the HPI. ROS Other: All systems not noted in ROS Statement are negative. Past Medical History Past Medical History: Coronary Artery Disease (CAD), Hyperlipidemia, Pulmonary Embolus (PE) Additional Past Medical History / Comment(s): SEE DR BAUER'S H&P,FREQ DIZZINESS,FREQ UTI'S, urinary retention -self caths, constipation, shingles 10 years ago, osteoporosis History of Any Multi-Drug Resistant Organisms: ESBL Date of last positivie culture/infection: 02/09/21 MDRO Source:: ESBL URINE Past Surgical History: Back Surgery, Coronary Bypass/CABG, Orthopedic Surgery, Tonsillectomy Additional Past Surgical History / Comment(s): PAIN CLINIC PROCEDURES,CABG 2 VESSEL 2004, maxwell cataracts,rt rotator cuff, rt hip/donna in place,"implanted monitor to monitor any cardic changes that could explain her syncopal episodes" Past Anesthesia/Blood Transfusion Reactions: Motion Sickness Past Psychological History: No Psychological Hx Reported Smoking Status: Never smoker Past Alcohol Use History: None Reported Past Drug Use History: None Reported - Past Family History Mother Family Medical History: Cancer Additional Family Medical History / Comment(s): LUNG cancer Father Family Medical History: Myocardial Infarction ([place]) Additional Family Medical History / Comment(s): hardening of the arteries General Exam Limitations: no limitations General appearance: alert, in no apparent distress Head exam: Present: atraumatic, normocephalic Eye exam: Present: normal appearance, PERRL ENT exam: Present: normal exam Neck exam: Present: normal inspection. Absent: tenderness, meningismus Respiratory exam: Present: normal lung sounds bilaterally. Absent: respiratory distress, wheezes Cardiovascular Exam: Present: regular rate, normal rhythm GI/Abdominal exam: Present: soft. Absent: distended, tenderness, guarding Extremities exam: Present: normal inspection, normal capillary refill. Absent: pedal edema Neurological exam: Present: alert. Absent: motor sensory deficit Psychiatric exam: Present: normal affect, normal mood Skin exam: Present: warm, dry, intact. Absent: cyanosis, diaphoretic Course Vital Signs 07/09/21 11:54 Temperature 97.6 F Pulse Rate 69 Respiratory 20 Rate Blood Pressure 173/81 O2 Sat by Pulse 96 Oximetry Medical Decision Making - Medical Decision Making 85-year-old female with asymptomatic hypertension. Patient well-appearing she is hypertensive with otherwise stable vitals. No complaints. She has a normal CBC and normal CMP. We did discuss monitoring blood pressure at home and close follow-up with the primary care physician. Return parameters are discussed. - Lab Data Result diagrams: 07/09/21 12:45 07/09/21 12:45 Lab Results 07/09/21 07/09/21 Range/Units 12:45 12:45 WBC 8.8 (3.8-10.6) k/uL RBC 4.82 (3.80-5.40) m/uL Hgb 13.3 (11.4-16.0) gm/dL Hct 42.6 (34.0-46.0) % MCV 88.5 (80.0-100.0) fL MCH 27.6 (25.0-35.0) pg MCHC 31.2 (31.0-37.0) g/dL RDW 17.2 H (11.5-15.5) % Plt Count 264 (150-450) k/uL MPV 8.8 Neutrophils % 80 % Lymphocytes % 12 % Monocytes % 5 % Eosinophils % 2 % Basophils % 1 % Neutrophils # 7.0 (1.3-7.7) k/uL Lymphocytes # 1.0 (1.0-4.8) k/uL Monocytes # 0.4 (0-1.0) k/uL Eosinophils # 0.2 (0-0.7) k/uL Basophils # 0.1 (0-0.2) k/uL Anisocytosis Slight Sodium 143 (137-145) mmol/L Potassium 3.6 (3.5-5.1) mmol/L Chloride 105 (98-107) mmol/L Carbon Dioxide 28 (22-30) mmol/L Anion Gap 10 mmol/L BUN 20 H (7-17) mg/dL Creatinine 0.90 (0.52-1.04) mg/dL Est GFR (CKD-EPI)AfAm 68 (>60 ml/min/1.73 sqM) Est GFR (CKD-EPI)NonAf 59 (>60 ml/min/1.73 sqM) Glucose 119 H (74-99) mg/dL Calcium 9.7 (8.4-10.2) mg/dL Total Bilirubin 0.7 (0.2-1.3) mg/dL AST 25 (14-36) U/L ALT 12 (4-34) U/L Alkaline Phosphatase 54 (38-126) U/L Total Protein 7.3 (6.3-8.2) g/dL Albumin 4.1 (3.5-5.0) g/dL Disposition Clinical Impression: Hypertension Disposition: HOME SELF-CARE Condition: Fair Instructions (If sedation given, give patient instructions): Hypertension (ED) Is patient prescribed a controlled substance at d/c from ED?: No Referrals: Shawna Pearson MD [Primary Care Provider] - 1-2 days Time of Disposition: 13:47
[2021-07-09 13:05] LABS: Anisocytosis Slight; Basophils # (A) 0.1 k/uL (0-0.2); Basophils % (A) 1 %; Eosinophils # (A) 0.2 k/uL (0-0.7); Eosinophils % (A) 2 %; HCT 42.6 % (34.0-46.0); HGB 13.3 gm/dL (11.4-16.0); Lymphocytes % (A) 12 %; MCH 27.6 pg (25.0-35.0); MCHC 31.2 g/dL (31.0-37.0); MCV 88.5 fL (80.0-100.0); Mean Platelet Volume 8.8; Monocytes # (A) 0.4 k/uL (0-1.0); Monocytes % (A) 5 %; Neutrophils % (A) 80 %; Platelet Count 264 k/uL (150-450); RBC 4.82 m/uL (3.80-5.40); RDW 17.2 % (11.5-15.5); WBC 8.8 k/uL (3.8-10.6)
[2021-07-09 13:27] LABS: Albumin 4.1 g/dL (3.5-5.0); Calcium 9.7 mg/dL (8.4-10.2); Potassium 3.6 mmol/L (3.5-5.1); Total Bilirubin 0.7 mg/dL (0.2-1.3); Total Protein 7.3 g/dL (6.3-8.2)
[2021-07-09 14:08] VITALS: BP 174/81; PULSE 64; RESP 18; TEMP 98.1
== END 2021-07-09 14:06 | disposition home or self-care (01) ==
LOC: EC 11:48
DX: I10 Essential (primary) hypertension (principal); I25.10 Atherosclerotic heart disease of native coronary artery without angina pectoris; E78.5 Hyperlipidemia, unspecified; M81.0 Age-related osteoporosis without current pathological fracture; Z88.2 Allergy status to sulfonamides; Z86.711 Personal history of pulmonary embolism; Z87.440 Personal history of urinary (tract) infections; Z95.1 Presence of aortocoronary bypass graft; Z88.1 Allergy status to other antibiotic agents
CPT/HCPCS: 36415; 80053; 85025; 99283

== ENCOUNTER 2021-08-11 08:15 | Inpatient (IN) | payer MEDICARE, BC ==
--- NOTE | 2021-08-11 08:23 | ED ---
General Adult HPI - General Stated complaint: UTI Time Seen by Provider: 08/11/21 08:16 Source: patient, EMS, RN notes reviewed Mode of arrival: EMS Limitations: no limitations - History of Present Illness Initial comments: Patient is a pleasant 85-year-old female presenting to the emergency department with concerns for urinary tract infection. Family called EMS secondary to f eeling patient needed treatment. Patient did have urine dropped off through primary care physician a week ago however no results yet. Patient is not currently on therapy. Patient otherwise has no complaints. Patient does not feel weak or fatigued. Patient has baseline dementia. No abdominal pain. No fever. - Related Data Home Medications Medication Instructions Recorded Confirmed Donepezil HCl [Aricept] 10 mg PO DAILY 01/07/21 08/11/21 Memantine HCl [Memantine HCl ER] 28 mg PO DAILY 01/07/21 08/11/21 cloNIDine HCL [Catapres] 0.1 mg PO DAILY PRN 08/11/21 08/11/21 cycloSPORINE 0.05% OPHTH SOLN 0.5 ampul BOTH EYES Q12H 08/11/21 08/11/21 [Restasis] Allergies Allergy/AdvReac Type Severity Reaction Status Date / Time Sulfa (Sulfonamide Allergy Unknown Verified 08/11/21 08:53 Antibiotics) doxycycline AdvReac Rash/Hives Verified 08/11/21 08:54 nitrofurantoin AdvReac fainting Verified 08/11/21 08:53 [From Macrobid] Review of Systems ROS Statement: Those systems with pertinent positive or pertinent negative responses have been documented in the HPI. ROS Other: All systems not noted in ROS Statement are negative. Constitutional: Denies: fever Eyes: Denies: eye pain ENT: Denies: ear pain Respiratory: Denies: dyspnea Cardiovascular: Denies: chest pain Endocrine: Denies: fatigue Gastrointestinal: Denies: abdominal pain Genitourinary: Reports: as per HPI Musculoskeletal: Denies: back pain Skin: Denies: rash Past Medical History Past Medical History: Coronary Artery Disease (CAD), Hyperlipidemia, Pulmonary Embolus (PE) Additional Past Medical History / Comment(s): SEE DR BAUER'S H&P,FREQ DIZZINES S,FREQ UTI'S, urinary retention -self caths, constipation, shingles 10 years ago, osteoporosis History of Any Multi-Drug Resistant Organisms: ESBL Date of last positivie culture/infection: 02/09/21 MDRO Source:: ESBL URINE Past Surgical History: Back Surgery, Coronary Bypass/CABG, Orthopedic Surgery, Tonsillectomy Additional Past Surgical History / Comment(s): PAIN CLINIC PROCEDURES,CABG 2 VESSEL 2004, maxwell cataracts,rt rotator cuff, rt hip/donna in place,"implanted monitor to monitor any cardic changes that could explain her syncopal episodes" Past Anesthesia/Blood Transfusion Reactions: Motion Sickness Past Psychological History: No Psychological Hx Reported Smoking Status: Never smoker Past Alcohol Use History: None Reported Past Drug Use History: None Reported - Past Family History Mother Family Medical History: Cancer Additional Family Medical History / Comment(s): LUNG cancer Father Family Medical History: Myocardial Infarction ([place]) Additional Family Medical History / Comment(s): hardening of the arteries General Exam Limitations: no limitations General appearance: alert, in no apparent distress Head exam: Present: normocephalic Eye exam: Present: normal appearance Neck exam: Present: normal inspection Respiratory exam: Present: normal lung sounds bilaterally Cardiovascular Exam: Present: regular rate, normal rhythm GI/Abdominal exam: Present: soft. Absent: tenderness Extremities exam: Present: normal inspection Neurological exam: Present: alert Psychiatric exam: Present: normal affect, normal mood Skin exam: Present: normal color Course Vital Signs 08/11/21 08:17 Temperature 97.3 F L Pulse Rate 74 Respiratory 18 Rate Blood Pressure 153/72 O2 Sat by Pulse 94 L Oximetry Medical Decision Making - Medical Decision Making Patient reevaluated and resting comfortably in bed. Family is now present and adds that patient has been on antibiotics recently. Patient also over the past 1-2 days has been very fatigued. Unable to use the restroom by herself. Not eating or drinking. Case was discussed with Dr. Ramos, who will admit covering Dr. Weston - Lab Data Result diagrams: 08/11/21 08:33 08/11/21 08:33 Lab Results 08/11/21 08/11/21 08/11/21 Range/Units 08:33 08:33 08:33 WBC 7.2 (3.8-10.6) k/uL RBC 4.57 (3.80-5.40) m/uL Hgb 12.8 (11.4-16.0) gm/dL Hct 40.1 (34.0-46.0) % MCV 87.7 (80.0-100.0) fL MCH 28.0 (25.0-35.0) pg MCHC 32.0 (31.0-37.0) g/dL RDW 17.1 H (11.5-15.5) % Plt Count 291 (150-450) k/uL MPV 8.4 Neutrophils % 72 % Lymphocytes % 15 % Monocytes % 7 % Eosinophils % 3 % Basophils % 1 % Neutrophils # 5.2 (1.3-7.7) k/uL Lymphocytes # 1.1 (1.0-4.8) k/uL Monocytes # 0.5 (0-1.0) k/uL Eosinophils # 0.2 (0-0.7) k/uL Basophils # 0.1 (0-0.2) k/uL Anisocytosis Slight Sodium 143 (137-145) mmol/L Potassium 4.4 (3.5-5.1) mmol/L Chloride 109 H (98-107) mmol/L Carbon Dioxide 27 (22-30) mmol/L Anion Gap 7 mmol/L BUN 21 H (7-17) mg/dL Creatinine 1.06 H (0.52-1.04) mg/dL Est GFR (CKD-EPI)AfAm 56 (>60 ml/min/1.73 sqM) Est GFR (CKD-EPI)NonAf 48 (>60 ml/min/1.73 sqM) Glucose 97 (74-99) mg/dL Calcium 9.4 (8.4-10.2) mg/dL Total Bilirubin 1.3 (0.2-1.3) mg/dL AST 20 (14-36) U/L ALT 13 (4-34) U/L Alkaline Phosphatase 74 (38-126) U/L Total Protein 6.4 (6.3-8.2) g/dL Albumin 3.7 (3.5-5.0) g/dL Urine Color Damian Urine Appearance Turbid H (Clear) Urine RBC >182 H (0-5) /hpf Urine WBC >182 H (0-5) /hpf Urine WBC Clumps Many H (None) /hpf Amorphous Sediment Few H (None) /hpf Urine Bacteria Many H (None) /hpf Urine Mucus Many H (None) /hpf Disposition Clinical Impression: Urinary tract infection Disposition: ADMITTED IP TO THIS HOSP Is patient prescribed a controlled substance at d/c from ED?: No Referrals: Shawna eParson MD [Primary Care Provider] - 1-2 days Time of Disposition: 10:27
[2021-08-11 08:44] LABS: Anisocytosis Slight; Basophils # (A) 0.1 k/uL (0-0.2); Basophils % (A) 1 %; Eosinophils # (A) 0.2 k/uL (0-0.7); Eosinophils % (A) 3 %; HCT 40.1 % (34.0-46.0); HGB 12.8 gm/dL (11.4-16.0); Lymphocytes # (A) 1.1 k/uL (1.0-4.8); Lymphocytes % (A) 15 %; MCV 87.7 fL (80.0-100.0); Mean Platelet Volume 8.4; Monocytes # (A) 0.5 k/uL (0-1.0); Monocytes % (A) 7 %; Neutrophils # (A) 5.2 k/uL (1.3-7.7); Neutrophils % (A) 72 %; Platelet Count 291 k/uL (150-450); RBC 4.57 m/uL (3.80-5.40); RDW 17.1 % (11.5-15.5); WBC 7.2 k/uL (3.8-10.6)
[2021-08-11 08:58] LABS: Albumin 3.7 g/dL (3.5-5.0); Calcium 9.4 mg/dL (8.4-10.2); Potassium 4.4 mmol/L (3.5-5.1); Total Bilirubin 1.3 mg/dL (0.2-1.3); Total Protein 6.4 g/dL (6.3-8.2)
[2021-08-11 09:31] LABS: Amorphous Sediment,Urine Few /hpf; Bacteria,Urine Many /hpf; Mucus,Urine Many /hpf; RBC,Urine >182 /hpf (0-5); WBC,Urine >182 /hpf (0-5)
[2021-08-11 09:32] LABS: Color,Urine Gray
[2021-08-11 09:35] LABS: Appearance,Urine Turbid (Clear)
[2021-08-11] MEDS ORDERED: ACETAMINOPHEN TAB 325 MG TAB PO PRN (10:29)
[2021-08-11] MEDS ORDERED: NALOXONE 0.4 MG/ML 1 ML VIAL IV PRN ×2 (10:29→12:57)
[2021-08-11] MEDS ORDERED: PIPERACILLIN-TAZOBACTAM 3.375 GM in SODIUM CHLORIDE 0.9% 100 ML IVPB SCH (11:00)
[2021-08-11] MEDS: SODIUM CHLORIDE 0.9% 1,000 ML IV SCH ×2 (11:42→22:32)
[2021-08-11] MEDS ORDERED: cloNIDine HCL 0.1 MG TAB PO PRN (12:55)
--- NOTE | 2021-08-11 13:27 | P.HPIM ---
History of Present Illness H&P Date: 08/11/21 Chief complaint: Generalized weakness and hypothermia History of present illness: Patient is a pleasant 85-year-old female with past medical history significant for dementia. She presenting to the emergency department worsening symptoms of UTI, the patient's daughter is the main historian she stated that her mother was diagnosed with UTI urine culture came back positive for ESBL patient was treated with oral doxycycline. The patient daughter stated that the patient developed skin rash after she started on doxycycline. Also she stated that her mom become weak with worsening mental status. Also she noted that the patient become hypothermic. The patient was seen and examined at emergency room she is alert oriented 1. Her temperature is low 97.3. Patient denies any chest pain or shortness of breath. Physical examination: General: Appears weak and confused. Derm: warm, dry Head: atraumatic, normocephalic, symmetric Eyes: EOMI, no lid lag, anicteric sclera Mouth: no lip lesion, mucus membranes moist Cardiovascular: S1S2 reg, no murmur, positive posterior tibial pulse bilateral, Lungs: CTA bilateral, no rhonchi, no rales , no accessory muscle use Abdominal: soft, nontender to palpation, no guarding, no appreciable organomegaly Ext: no gross muscle atrophy, no edema, no contractures Neuro: CN II-XI grossly intact, no focal neuro deficits Psych: Alert, oriented only to herself and place. Assessment and plan: #ESBL E. coli urosepsis -Failed outpatient treatment -Patient is confused and hypothermic and complaining of generalized weakness -Resistant bacteriuria -Intravenous fluids -Start imipenem -Blood culture done in the emergency room -Consult infectious disease #Acute metabolic encephalopathy secondary to above. -Underlying dementia #Dementia -Resume all medications #DVT prophylaxis with Lovenox Past Medical History Past Medical History: Coronary Artery Disease (CAD), Hyperlipidemia, Pulmonary Embolus (PE) Additional Past Medical History / Comment(s): SEE DR BAUER'S H&P,FREQ DIZZINESS,FREQ UTI'S, urinary retention -self caths, constipation, shingles 10 years ago, osteoporosis History of Any Multi-Drug Resistant Organisms: ESBL Date of last positivie culture/infection: 02/09/21 MDRO Source:: ESBL URINE Past Surgical History: Back Surgery, Coronary Bypass/CABG, Orthopedic Surgery, Tonsillectomy Additional Past Surgical History / Comment(s): PAIN CLINIC PROCEDURES,CABG 2 VESSEL 2003, maxwell cataracts,rt rotator cuff, rt hip/donna in place,"implanted monitor to monitor any cardic changes that could explain her syncopal episodes" Past Anesthesia/Blood Transfusion Reactions: Motion Sickness Past Psychological History: No Psychological Hx Reported Smoking Status: Never smoker Past Alcohol Use History: None Reported Past Drug Use History: None Reported - Past Family History Mother Family Medical History: Cancer Additional Family Medical History / Comment(s): LUNG cancer Father Family Medical History: Myocardial Infarction ([place]) Additional Family Medical History / Comment(s): hardening of the arteries Medications and Allergies Home Medications Medication Instructions Recorded Confirmed Type Donepezil HCl [Aricept] 10 mg PO DAILY 01/07/21 08/11/21 History Memantine HCl [Memantine HCl ER] 28 mg PO DAILY 01/07/21 08/11/21 History cloNIDine HCL [Catapres] 0.1 mg PO DAILY PRN 08/11/21 08/11/21 History cycloSPORINE 0.05% OPHTH SOLN 0.5 ampul BOTH EYES Q12H 08/11/21 08/11/21 History [Restasis] Allergies Allergy/AdvReac Type Severity Reaction Status Date / Time Sulfa (Sulfonamide Allergy Unknown Verified 08/11/21 08:53 Antibiotics) doxycycline AdvReac Rash/Hives Verified 08/11/21 08:54 nitrofurantoin AdvReac fainting Verified 08/11/21 08:53 [From Macrobid] Physical Exam Vitals: Vital Signs Temp Pulse Resp BP Pulse Ox 08/11/21 13:05 64 18 120/60 95 08/11/21 12:07 57 L 18 139/64 93 L 08/11/21 11:43 64 18 135/66 94 L 08/11/21 08:17 97.3 F L 74 18 153/72 94 L Intake and Output 08/10/21 08/11/21 08/11/21 22:59 06:59 14:59 Other: Weight 63.503 kg Results CBC & Chem 7: 08/11/21 08:33 08/11/21 08:33 Labs: Abnormal Lab Results - Last 24 Hours (Table) 08/11/21 08/11/21 08/11/21 Range/Units 08:33 08:33 08:33 RDW 17.1 H (11.5-15.5) % Chloride 109 H (98-107) mmol/L BUN 21 H (7-17) mg/dL Creatinine 1.06 H (0.52-1.04) mg/dL Urine Appearance Turbid H (Clear) Urine RBC >182 H (0-5) /hpf Urine WBC >182 H (0-5) /hpf Urine WBC Clumps Many H (None) /hpf Amorphous Sediment Few H (None) /hpf Urine Bacteria Many H (None) /hpf Urine Mucus Many H (None) /hpf
[2021-08-11] MEDS: MEROPENEM 0.5 GM in SODIUM CHLORIDE 0.9% 100 ML IVPB SCH ×2 (14:55→22:31)
[2021-08-11] MEDS: cycloSPORINE 0.05% OPHTH 0.4 ML DROPERETTE BOTH EYES SCH ×2 (17:47→22:29)
[2021-08-12 05:50] VITALS: RESP 16
[2021-08-12] MEDS: MEROPENEM 0.5 GM in SODIUM CHLORIDE 0.9% 100 ML IVPB SCH ×3 (05:52→20:15)
--- NOTE | 2021-08-12 07:02 | P.CONS ---
History of Present Illness - Reason for Consult Consult date: 08/11/21 ESBL urosepsis Requesting physician: Jase Leiva - Chief Complaint Weakness and pus in urine x few days - History of Present Illness Patient is 85-year-old female with a past medical history significant for recurrent enteric infection patient apparently started having symptoms about a week ago and the family mentioned they did drop off a urine sample at the PCP office however no significant treatment was called and patient be complaining of having burning of urination and did have pus in the urine as described by the patient daughter patient also complaining of pain to the suprapubic area more frequently 3-4 out of 10 radiation did have some nausea but no vomiting no flank pain did have some chills on presentation to the hospital the patient was afebrile patient did have normal white count. Creatinine was mildly elevated and did have a positive UA keeping in mind her previous culture positive for ESBL E. coli the p.o. started on meropenem has been admitted to the hospital infectious disease was consulted for further management of antibiotic therapy Review of Systems Positive point has been mentioned in the HPI rest of the systems are negative Past Medical History Past Medical History: Coronary Artery Disease (CAD), Hyperlipidemia, Pulmonary Embolus (PE) Additional Past Medical History / Comment(s): SEE DR BAUER'S H&P,FREQ DIZZINESS,FREQ UTI'S, urinary retention -self caths, constipation, shingles 10 years ago, osteoporosis History of Any Multi-Drug Resistant Organisms: ESBL Year Discovered:: 02/09/21 MDRO Source:: ESBL URINE Past Surgical History: Back Surgery, Coronary Bypass/CABG, Orthopedic Surgery, Tonsillectomy Additional Past Surgical History / Comment(s): PAIN CLINIC PROCEDURES,CABG 2 VESSEL 2004, maxwell cataracts,rt rotator cuff, rt hip/donna in place,"implanted monitor to monitor any cardic changes that could explain her syncopal episodes" Past Anesthesia/Blood Transfusion Reactions: Motion Sickness Past Psychological History: No Psychological Hx Reported Smoking Status: Never smoker Past Alcohol Use History: None Reported Past Drug Use History: None Reported - Past Family History Mother Family Medical History: Cancer Additional Family Medical History / Comment(s): LUNG cancer Father Family Medical History: Myocardial Infarction ([place]) Additional Family Medical History / Comment(s): hardening of the arteries Medications and Allergies Home Medications Medication Instructions Recorded Confirmed Type Donepezil HCl [Aricept] 10 mg PO DAILY 01/07/21 08/11/21 History Memantine HCl [Memantine HCl ER] 28 mg PO DAILY 01/07/21 08/11/21 History cloNIDine HCL [Catapres] 0.1 mg PO DAILY PRN 08/11/21 08/11/21 History cycloSPORINE 0.05% OPHTH SOLN 0.5 ampul BOTH EYES Q12H 08/11/21 08/11/21 History [Restasis] Allergies Allergy/AdvReac Type Severity Reaction Status Date / Time Sulfa (Sulfonamide Allergy Unknown Verified 08/11/21 08:53 Antibiotics) doxycycline AdvReac Rash/Hives Verified 08/11/21 08:54 nitrofurantoin AdvReac fainting Verified 08/11/21 08:53 [From Macrobid] Physical Exam Vitals: Vital Signs Temp Pulse Resp BP Pulse Ox 08/11/21 13:05 64 18 120/60 95 08/11/21 12:07 57 L 18 139/64 93 L 08/11/21 11:43 64 18 135/66 94 L 08/11/21 08:17 97.3 F L 74 18 153/72 94 L Intake and Output 08/10/21 08/11/21 08/11/21 22:59 06:59 14:59 Other: Weight 63.503 kg GENERAL DESCRIPTION: Elderly female lying in bed, no distress. No tachypnea or accessory muscle of respiration use. HEENT: Shows Pallor , no scleral icterus. Oral mucous membrane is dry. No pharyngeal erythema or thrush NECK: Trachea central, no thyromegaly. LUNGS: Unlabored breathing. Clear to auscultation anteriorly. No wheeze or crackle. HEART: S1, S2, regular rate and rhythm. No loud murmur ABDOMEN: Soft, no tenderness , guarding or rigidity, no organomegaly EXTREMITIES: No edema of feet. SKIN: No rash, no masses palpable. NEUROLOGICAL: The patient is awake, alert, oriented x3, mood and affect normal. Results CBC & Chem 7: 08/11/21 08:33 08/11/21 08:33 Labs: Abnormal Lab Results - Last 24 Hours (Table) 08/11/21 08/11/21 08/11/21 Range/Units 08:33 08:33 08:33 RDW 17.1 H (11.5-15.5) % Chloride 109 H (98-107) mmol/L BUN 21 H (7-17) mg/dL Creatinine 1.06 H (0.52-1.04) mg/dL Urine Appearance Turbid H (Clear) Urine RBC >182 H (0-5) /hpf Urine WBC >182 H (0-5) /hpf Urine WBC Clumps Many H (None) /hpf Amorphous Sediment Few H (None) /hpf Urine Bacteria Many H (None) /hpf Urine Mucus Many H (None) /hpf Assessment and Plan (1) Urinary tract infection Current Visit: Yes Status: Acute Code(s): N39.0 - URINARY TRACT INFECTION, SITE NOT SPECIFIED SNOMED Code(s): 82376383 Plan: 1patient with a history of recurrent urinary tract infection this patient complaining of irritative voiding did have significant pyuria and discomfort likely symptomatic urine tract infection in this patient who is going ESBL E. coli in the past could be the same pathogen. 2patient with multiple antibiotic allergies that would limit the number of antibiotics safe to use. 3patient to continue with the meropenem while waiting for the culture to finalize to determine discharge antibiotics. We will follow on clinical condition and cultures to further adjust medication if needed Thank you for this consultation will follow this patient along with you
[2021-08-12] MEDS: DONEPEZIL 10 MG TAB PO SCH (09:14)
[2021-08-12] MEDS: cycloSPORINE 0.05% OPHTH 0.4 ML DROPERETTE BOTH EYES SCH ×2 (09:15→20:15)
[2021-08-12] MEDS: ENOXAPARIN 40 MG/0.4 ML SYRINGE SQ SCH (09:15)
[2021-08-12] MEDS: MEMANTINE 10 MG TAB PO SCH ×2 (09:15→20:15)
--- NOTE | 2021-08-12 14:36 | P.PN ---
Subjective Progress Note Date: 08/12/21 History of present illness: Patient is a pleasant 85-year-old female with past medical history significant for dementia. She presenting to the emergency department worsening symptoms of UTI, the patient's daughter is the main historian she stated that her mother was diagnosed with UTI urine culture came back positive for ESBL patient was treated with oral doxycycline. The patient daughter stated that the patient developed skin rash after she started on doxycycline. Also she stated that her mom become weak with worsening mental status. Also she noted that the patient become hypothermic. The patient was seen and examined at emergency room she is alert oriented 1. Her temperature is low 97.3. Patient denies any chest pain or shortness of breath. Interval history: Patient was seen and examined at the bedside. She denies any chest pain or shortness of breath. She reports improvement in her symptoms overnight. Physical examination: General: No acute distress Derm: warm, dry Head: atraumatic, normocephalic, symmetric Eyes: EOMI, no lid lag, anicteric sclera Mouth: no lip lesion, mucus membranes moist Cardiovascular: S1S2 reg, no murmur, positive posterior tibial pulse bilateral, Lungs: CTA bilateral, no rhonchi, no rales , no accessory muscle use Abdominal: soft, nontender to palpation, no guarding, no appreciable organomegaly Ext: no gross muscle atrophy, no edema, no contractures Neuro: CN II-XI grossly intact, no focal neuro deficits Psych: Alert, oriented only to herself and place. Assessment and plan: #ESBL E. coli urosepsis -Failed outpatient treatment -Patient is confused and hypothermic and complaining of generalized weakness -Resistant bacteriuria -Intravenous fluids -Start imipenem -Blood culture done in the emergency room -Consult infectious disease #Acute metabolic encephalopathy secondary to above. -Underlying dementia #Dementia -Resume all medications #DVT prophylaxis with Lovenox Objective - Vital Signs Vital signs: Vital Signs Temp 97.3 F L 08/12/21 12:17 Pulse 61 08/12/21 12:17 Resp 16 08/12/21 04:56 BP 138/78 08/12/21 12:17 Pulse Ox 100 08/12/21 12:17 FiO2 Intake & Output 08/11/21 08/12/21 08/12/21 18:59 06:59 18:59 Intake Total 1100 Balance 1100 Weight 63.503 kg 63.503 kg Intake: Intake, IV Titration 1100 Amount Meropenem 0.5 gm In 200 Sodium Chloride 0.9% 100 ml @ 33.3 mls/hr IVPB Q8H [facility] Rx#:[id number] Sodium Chloride 0.9% 1, 900 000 ml @ 75 mls/hr IV . [id number] [facility] Rx#:[id number] Other: # Voids 2 - Labs CBC & Chem 7: 08/11/21 08:33 08/11/21 08:33 Labs: Microbiology - Last 24 Hours (Table) 08/11/21 11:15 Blood Culture - Preliminary Blood No Growth after 24 hours 08/11/21 11:30 Blood Culture - Preliminary Blood No Growth after 24 hours 08/11/21 08:33 Urine Culture - Preliminary Urine,Voided Gram Neg Bacilli
[2021-08-12] MEDS: SODIUM CHLORIDE 0.9% 1,000 ML IV SCH ×2 (14:45→20:15)
--- NOTE | 2021-08-12 15:12 | CDI ---
Documentation Clarification Form Date: 08/12/2021 From: Nishi Gilbert RN, CCDS Admit Date: 08/11/2021 11:49:00 AM Patient Name: Vicenta Garcia Visit Number: [id number] Discharge Date: ATTENTION: The Clinical Documentation Specialists (CDI) and [facility] Coding Staff appreciate your assistance in clarifying documentation. Please respond to the clarification below the line at the bottom and electronically sign. The CDI & [facility] Coding staff will review the response and follow-up if needed. Please note: Queries are made part of the Legal Health Record. If you have any questions, please contact the author of this message via ITS. Dr. Jase Leiva Urosepsis is no longer a coded diagnosis. The diagnosis that was chiefly responsible for the admission - has not been clearly identified and clarification is requested. History/Risk factors: Dementia, coronary artery disease, hyperlipidemia, Pulmonary Embolus, UTI'S Clinical Indicators: 85-year-old female present with worsening symptoms of UTI. The culture came back positive for ESBL and was treated with oral Doxycycline out patient. She became weak with worsening mental status, hypothermic. She was orientated x1. She was complaining of burning of urination and pus in the urine. Lab findings: WBC 7.2, Neutrophils 71, BUN 21, CR 1.06 UA: Turbid >RBC >182, wbc >182 08/11 Vital Signs: 153/72 74 18 97.3 94 % ra ID consult: Urinary tract infection in the patient growing ISBL E. coli in the past could be the same pathogen. Treatment Meropenem 0.5GM IVPB Q 8 HRS (PTD) 08/11 Zosyn 3.375 MG IVPB Q 8 HRS 08/11-1 .9NS @ 75 MLS HR In your professional opinion, can you please clarify which diagnosis, after study, was the reason chiefly responsible for the admission? [ ] ESBL E. coli UTI [ x ] EBSBL E. coli UTI with SEPSIS [ ] Other, please specify [ ] Unable to determine (Template Last Revised: May 2020) MTDD
[2021-08-13] MEDS: MEROPENEM 0.5 GM in SODIUM CHLORIDE 0.9% 100 ML IVPB SCH ×2 (05:19→13:52)
--- NOTE | 2021-08-13 07:46 | P.PN ---
Subjective Progress Note Date: 08/12/21 Principal diagnosis: ESBL E. coli urinary tract infection Patient is 85 year female presented to hospital with weakness burning of urine suprapubic discomfort has been diagnosed with ESBL E. coli urinary tract infection. On today's evaluation that is 08/12/2021, the patient denies having any fever or chills, patient is feeling better breathing comfortably, no chest pain or shortness of breath or cough no abdominal pain and no diarrhea Objective - Vital Signs Vital signs: Vital Signs Temp 97.3 F L 08/12/21 12:17 Pulse 61 08/12/21 12:17 Resp 16 08/12/21 04:56 BP 138/78 08/12/21 12:17 Pulse Ox 100 08/12/21 12:17 FiO2 Intake & Output 08/11/21 08/12/21 08/12/21 18:59 06:59 18:59 Intake Total 1100 Balance 1100 Weight 63.503 kg 63.503 kg Intake: Intake, IV Titration 1100 Amount Meropenem 0.5 gm In 200 Sodium Chloride 0.9% 100 ml @ 33.3 mls/hr IVPB Q8H EVIE Rx#:[id number] Sodium Chloride 0.9% 1, 900 000 ml @ 75 mls/hr IV . [id number] EVIE Rx#:[id number] Other: # Voids 2 - Exam GENERAL DESCRIPTION: An elderly female lying in bed in no distress RESPIRATORY SYSTEM: Unlabored breathing , decreased breath sounds at bases HEART: S1 S2 regular rate and rhythm , ABDOMEN: Soft , no tenderness EXTREMITIES: No edema feet - Labs CBC & Chem 7: 08/11/21 08:33 08/11/21 08:33 Labs: Microbiology - Last 24 Hours (Table) 08/11/21 08:33 Urine Culture - Preliminary Urine,Voided Gram Neg Bacilli Assessment and Plan (1) Urinary tract infection Current Visit: Yes Status: Acute Code(s): N39.0 - URINARY TRACT INFECTION, SITE NOT SPECIFIED SNOMED Code(s): 87169792 Plan: 1patient with a history of recurrent urinary tract infection this patient complaining of irritative voiding did have significant pyuria and discomfort likely symptomatic urine tract infection in this patient who is going ESBL E. coli in the past could be the same pathogen. 2patient with multiple antibiotic allergies that would limit the number of antibiotics safe to use. 3patient to continue with the meropenem, however with a blood culture negative by a.m. the patient did get Midline and plan is to finish therapy with Invanz 1 g daily for 10 days Time with Patient: Less than 30
[2021-08-13] MEDS: ENOXAPARIN 40 MG/0.4 ML SYRINGE SQ SCH (08:06)
[2021-08-13] MEDS: cycloSPORINE 0.05% OPHTH 0.4 ML DROPERETTE BOTH EYES SCH (08:07)
[2021-08-13] MEDS: DONEPEZIL 10 MG TAB PO SCH (08:07)
[2021-08-13] MEDS: MEMANTINE 10 MG TAB PO SCH (08:07)
[2021-08-13] MEDS ORDERED: ERTAPENEM 1 GM in SODIUM CHLORIDE 0.9% 50 ML IVPB STA ×2 (11:11→11:25)
--- NOTE | 2021-08-13 11:30 | P.DS ---
Providers Date of admission: 08/11/21 11:49 Expected date of discharge: 08/13/21 Attending physician: Stephanie Thomas DO Consults: 08/11/21 13:04 Consult Physician Routine Consulting Provider: Dionicio Bustillos Consult Reason/Comments: ESBL UROSEPSIS Do you want consulting provider notified?: Yes Primary care physician: Shawna Pearson MD Hospital Course: History of present illness: Patient is a pleasant 85-year-old female with past medical history significant for dementia. She presenting to the emergency department worsening symptoms of UTI, the patient's daughter is the main historian she stated that her mother was diagnosed with UTI urine culture came back positive for ESBL patient was treated with oral doxycycline. The patient daughter stated that the patient developed skin rash after she started on doxycycline. Also she stated that her mom become weak with worsening mental status. Also she noted that the patient become hypothermic. The patient was seen and examined at emergency room she is alert oriented 1. Her temperature is low 97.3. Patient denies any chest pain or shortness of breath. Physical examination: General: No acute distress Derm: warm, dry Head: atraumatic, normocephalic, symmetric Eyes: EOMI, no lid lag, anicteric sclera Mouth: no lip lesion, mucus membranes moist Cardiovascular: S1S2 reg, no murmur, positive posterior tibial pulse bilateral, Lungs: CTA bilateral, no rhonchi, no rales , no accessory muscle use Abdominal: soft, nontender to palpation, no guarding, no appreciable organomegaly Ext: no gross muscle atrophy, no edema, no contractures Neuro: CN II-XI grossly intact, no focal neuro deficits Psych: Alert, oriented only to herself and place. Detailed the problem list #ESBL E. coli urosepsis -Failed outpatient treatment -Patient was confused and hypothermic and complaining of generalized weakness -Intravenous fluids -Start imipenem will be discharged home on Invanz 1 g daily for 10 days per ID recommendation -Blood culture negative to date -Appreciated input from infectious disease #Acute metabolic encephalopathy secondary to above. -Back to baseline -Underlying dementia #Dementia -Resume all medications #Daughter refused fdc home placement patient will be discharged home with home health care. Patient Condition at Discharge: Stable Plan - Discharge Summary Discharge Rx Participant: Yes New Discharge Prescriptions: New Ertapenem [INVanz] 1 gm IM DAILY 10 Days #10 each Continue Donepezil HCl [Aricept] 10 mg PO DAILY cloNIDine HCL [Catapres] 0.1 mg PO DAILY PRN PRN Reason: Blood Pressure - High Memantine HCl [Memantine HCl ER] 28 mg PO DAILY cycloSPORINE 0.05% OPHTH SOLN [Restasis] 0.5 ampul BOTH EYES Q12H Discharge Medication List Donepezil HCl [Aricept] 10 mg PO DAILY 01/07/21 [History] Memantine HCl [Memantine HCl ER] 28 mg PO DAILY 01/07/21 [History] cloNIDine HCL [Catapres] 0.1 mg PO DAILY PRN 08/11/21 [History] cycloSPORINE 0.05% OPHTH SOLN [Restasis] 0.5 ampul BOTH EYES Q12H 08/11/21 [History] Ertapenem [INVanz] 1 gm IM DAILY 10 Days #10 each 08/13/21 [Rx] Follow up Appointment(s)/Referral(s): Shawna Pearson MD [Primary Care Provider] - 08/17/21 3:30 pm Dionicio Bustillos MD [STAFF PHYSICIAN] - 1 Week Discharge Disposition: HOME WITH HOME HEALTH SERVICES
[2021-08-13 11:38] LABS: Basophils # (A) 0.08 X 10*3/uL (0.00-0.10); Eosinophils # (A) 0.28 X 10*3/uL (0.04-0.35); Eosinophils % (A) 3.7 %; HCT 44.4 % (37.2-46.3); HGB 13.5 g/dL (12.0-15.0); Immature Grans, Automated 0.5 %; Lymphocytes # (A) 0.95 X 10*3/uL (0.90-5.00); Lymphocytes % (A) 12.5 %; MCH 26.8 pg (27.0-32.0); MCHC 30.4 g/dL (32.0-37.0); MCV 88.3 fL (80.0-97.0); Mean Platelet Volume 11.1 fL (9.5-12.2); Monocytes # (A) 0.74 X 10*3/uL (0.20-1.00); Monocytes % (A) 9.7 %; NRBC Per 100 WBC 0 /100 WBCS (0.0-0.0); Neutrophils # (A) 5.54 X 10*3/uL (1.80-7.70); Neutrophils % (A) 72.6 %; Platelet Count 304 X 10*3/uL (140-440); RBC 5.03 X 10*6/uL (4.10-5.20); RDW 17.3 % (11.5-14.5); WBC 7.63 X 10*3/uL (4.50-10.00)
[2021-08-13 11:39] LABS: African American GFR (CKD) 86.9 (60.0-200.0); Anion Gap 11.8 mmol/L (10.00-18.00); BUN/Creat Ratio 17.82 Ratio (12.00-20.00); Blood Urea Nitrogen 13.1 mg/dL (9.0-27.0); Calcium 9.5 mg/dL (8.7-10.3); Carbon Dioxide 24.8 mmol/L (20.0-27.5); Magnesium 2.2 mg/dL (1.5-2.4); Potassium 3.8 mmol/L (3.5-5.5)
--- NOTE | 2021-08-13 13:22 | US ---
EXAMINATION TYPE: US venous doppler duplex LE BI DATE OF EXAM: 08/13/2021 1:07 PM COMPARISON: NONE CLINICAL HISTORY: pain. elderly patient refuses to move her legs at all, daughter states mother screa ms in pain and has been hitting staff if they try to move her, no h/o dvt, no swelling, hip and leg p ain bilaterally SIDE PERFORMED: Bilateral TECHNIQUE: The lower extremity deep venous system is examined utilizing real time linear array sonog tyra with graded compression, doppler sonography and color-flow sonography. VESSELS IMAGED: Common Femoral Vein Deep Femoral Vein Greater Saphenous Vein * Femoral Vein Popliteal Vein Small Saphenous Vein * Proximal Calf Veins (* superficial vessels) Right Leg: Negative for DVT - unable to do compression on popiteal veins due to patients inability t o roll/lift her leg, good color flow and doppler was seen. Left Leg: Negative for DVT- unable to do compression on popiteal veins due to patients inability to roll/lift her leg, good color flow and doppler was seen. IMPRESSION: 1. Bilateral lower extremity ultrasound negative for deep venous thrombosis. 2. There is limited examination especially through the popliteal veins due to patient condition.
--- NOTE | 2021-08-13 13:57 | CT ---
EXAMINATION TYPE: CT pelvis wo con DATE OF EXAM: 08/13/2021 COMPARISON: None. HISTORY: bilateral hip pain CT DLP: 248.2 mGycm Automated exposure control for dose reduction was used. FINDINGS: Osseous structures are demineralized. There is no acute displaced fracture in the pelvis. Pubic symph ysis is intact. Sacroiliac joints are preserved. Bilateral spurring is present. Right hip joint and p roximal femur show no acute displaced fracture. Fpcx-[id number] axial joint space loss is present. L eft hip shows metallic hardware through healed fracture with pyhb-eu-[id number] axial joint space loss and acetabular spurring. Some heterotopic ossification superiorly and laterally is present. Mild to moderately distended bladder. Uterus is normal in size for a postmenopausal female. Scattered tiny bilateral pelvic phleboliths. Diverticula in the left and sigmoid colon are present. Moderate t o severe calcified plaque of the distal abdominal aorta extends into iliac branch vessels. Scar tissu e overlies the posterior inferior sacrum, possible old decubitus ulcer. IMPRESSION: No acute displaced pelvic or bilateral hip fracture.
[2021-08-13 14:31] VITALS: BP 153/65; PULSE 71; TEMP 98.8
== END 2021-08-13 18:02 | disposition home health service (06) | DRG 871 ==
LOC: EC 08:15 → 6NMEDSUR 10:29 → OBSVTOIN 11:49 → 5NMEDONC 12:27
PROVIDERS: ADMIT Internal Medicine; ATTEND Internal Medicine
PROC: 05HC33Z Insertion of Infusion Device into Left Basilic Vein, Percutaneous Approach (ICD-10-PCS; principal; 2021-08-13 08:25)
DX: A41.51 Sepsis due to Escherichia coli [E. coli] (principal); G93.41 Metabolic encephalopathy; N39.0 Urinary tract infection, site not specified; Z16.12 Extended spectrum beta lactamase (ESBL) resistance; F03.90 Unspecified dementia, unspecified severity, without behavioral disturbance, psychotic disturbance, mood disturbance, and anxiety; Z28.310 Unvaccinated for COVID-19; E78.5 Hyperlipidemia, unspecified; I25.10 Atherosclerotic heart disease of native coronary artery without angina pectoris; M81.0 Age-related osteoporosis without current pathological fracture; R68.0 Hypothermia, not associated with low environmental temperature; Z79.899 Other long term (current) drug therapy; Z86.711 Personal history of pulmonary embolism; Z87.440 Personal history of urinary (tract) infections; Z86.19 Personal history of other infectious and parasitic diseases; Z95.1 Presence of aortocoronary bypass graft; Z90.89 Acquired absence of other organs; Z87.39 Personal history of other diseases of the musculoskeletal system and connective tissue; Z98.42 Cataract extraction status, left eye; Z98.41 Cataract extraction status, right eye; Z98.890 Other specified postprocedural states; Z88.1 Allergy status to other antibiotic agents; Z88.2 Allergy status to sulfonamides; Z80.1 Family history of malignant neoplasm of trachea, bronchus and lung; Z82.49 Family history of ischemic heart disease and other diseases of the circulatory system
CPT/HCPCS: 36410; 36415; 72192; 80048; 80053; 81001; 83605; 83735; 85025; 87040; 87077; 87086; 87186; 93970; 96361; 96365; 96366; 96367; 99284

== ENCOUNTER 2021-08-31 08:07 | Inpatient (IN) | payer MEDICARE, BC ==
[2021-08-31] MEDS ORDERED: SODIUM CHLORIDE 0.9% 500 ML 500 ML IV ONE (08:45)
[2021-08-31 09:52] LABS: Anisocytosis Slight; Basophils # (A) 0.1 k/uL (0-0.2); Basophils % (A) 1 %; Eosinophils # (A) 0.5 k/uL (0-0.7); Eosinophils % (A) 6 %; HCT 39.2 % (34.0-46.0); HGB 12.7 gm/dL (11.4-16.0); Hypochromasia Slight; Lymphocytes # (A) 0.9 k/uL (1.0-4.8); Lymphocytes % (A) 12 %; MCH 28.5 pg (25.0-35.0); MCHC 32.4 g/dL (31.0-37.0); Mean Platelet Volume 8.6; Monocytes # (A) 0.4 k/uL (0-1.0); Monocytes % (A) 6 %; Neutrophils # (A) 5.6 k/uL (1.3-7.7); Neutrophils % (A) 74 %; Platelet Count 207 k/uL (150-450); RBC 4.46 m/uL (3.80-5.40); RDW 16.9 % (11.5-15.5); WBC 7.5 k/uL (3.8-10.6)
--- NOTE | 2021-08-31 09:59 | XR ---
EXAMINATION TYPE: XR chest 2V DATE OF EXAM: 08/31/2021 COMPARISON: NONE TECHNIQUE: PA and lateral views submitted. HISTORY: Altered mental status FINDINGS: Scoliotic curvature of the spine with diffuse osteopenia and arthropathy of the shoulders. Postsurgic al changes. Atherosclerotic change aorta. Mildly coarsened central interstitium. Elevated hemidiaphra gms likely on the basis of reduced inspiration. Arthropathy of the shoulders. IMPRESSION: 1. Coarsened central interstitium may been the basis of reduced inspiration rather than bronchitis or interstitial pneumonitis correlate clinically.
[2021-08-31 10:02] LABS: Appearance,Urine Clear (Clear); Bilirubin,Urine Negative (Negative); Blood,Urine Negative (Negative); Color,Urine Yellow; Glucose,Urine (UA) Negative (Negative); Ketones,Urine Negative (Negative); Leukocyte Esterase,Urine Moderate (Negative); Nitrite,Urine Negative (Negative); Protein,Urine Negative (Negative); RBC,Urine <1 /hpf (0-5); Specific Gravity,Urine 1.015 (1.001-1.035); Squamous Epithelial Cell,Urine 1 /hpf (0-4); Urobilinogen,Urine <2.0 mg/dL (<2.0); WBC,Urine 16 /hpf (0-5)
[2021-08-31 10:04] LABS: Albumin 3.3 g/dL (3.5-5.0); Calcium 8.4 mg/dL (8.4-10.2); Potassium 3.3 mmol/L (3.5-5.1); Total Bilirubin 1.1 mg/dL (0.2-1.3); Total Protein 6.1 g/dL (6.3-8.2)
[2021-08-31 10:11] LABS: Prothrombin Time 10.5 sec (9.0-12.0)
[2021-08-31 10:13] LABS: Lactic Acid, Venous 0.7 mmol/L (0.7-2.0)
[2021-08-31 10:39] LABS: Partial Thromboplastin Time 20.4 sec (22.0-30.0)
[2021-08-31] MEDS ORDERED: ERTAPENEM 1 GM in SODIUM CHLORIDE 0.9% 50 ML IVPB STA (11:00)
[2021-08-31] MEDS ORDERED: NALOXONE 0.4 MG/ML 1 ML VIAL IV PRN (11:02)
--- NOTE | 2021-08-31 11:02 | ED ---
General Adult HPI - General Chief complaint: Urogenital Stated complaint: possible UTI Time Seen by Provider: 08/31/21 08:45 Source: patient, EMS, RN notes reviewed Mode of arrival: EMS Limitations: altered mental status - History of Present Illness Initial comments: This a 85female presents emergency department via EMS with chief complaint of increasing confusion, altered mental status, weakness. Patient was recently hospitalized for ESBL urinary tract infection. There are states that she was doing greatly improved at home but of recent has had worsening symptoms for similar to her last event. Patient was at home on Invanz 10 days but has been off for 1 week. Patient was being followed by Dr. Bustillos. No other associated symptoms. - Related Data Home Medications Medication Instructions Recorded Confirmed Donepezil HCl [Aricept] 10 mg PO DAILY 01/07/21 08/31/21 Memantine HCl [Memantine HCl ER] 28 mg PO DAILY 01/07/21 08/31/21 cloNIDine HCL [Catapres] 0.1 mg PO DAILY PRN 08/11/21 08/31/21 cycloSPORINE 0.05% OPHTH SOLN 0.5 ampul BOTH EYES Q12H 08/11/21 08/31/21 [Restasis] Allergies Allergy/AdvReac Type Severity Reaction Status Date / Time Sulfa (Sulfonamide Allergy Unknown Verified 08/31/21 10:20 Antibiotics) doxycycline AdvReac Rash/Hives Verified 08/31/21 10:20 nitrofurantoin AdvReac fainting Verified 08/31/21 10:20 [From Macrobid] Review of Systems ROS Statement: Those systems with pertinent positive or pertinent negative responses have been documented in the HPI. ROS Other: All systems not noted in ROS Statement are negative. Past Medical History Past Medical History: Coronary Artery Disease (CAD), Hyperlipidemia, Pulmonary Embolus (PE) Additional Past Medical History / Comment(s): SEE DR BAUER'S H&P,FREQ DIZZINESS,FREQ UTI'S, urinary retention -self caths, constipation, shingles 10 years ago, osteoporosis History of Any Multi-Drug Resistant Organisms: ESBL Date of last positivie culture/infection: 08/11/21 ESBL E.coli MDRO Source:: Urine Past Surgical History: Back Surgery, Coronary Bypass/CABG, Orthopedic Surgery, Tonsillectomy Additional Past Surgical History / Comment(s): PAIN CLINIC PROCEDURES,CABG 2 VESSEL 2003, maxwell cataracts,rt rotator cuff, rt hip/donna in place,"implanted monitor to monitor any cardic changes that could explain her syncopal episodes" Past Anesthesia/Blood Transfusion Reactions: Motion Sickness Past Psychological History: No Psychological Hx Reported Smoking Status: Never smoker Past Alcohol Use History: None Reported Past Drug Use History: None Reported - Past Family History Mother Family Medical History: Cancer Additional Family Medical History / Comment(s): LUNG cancer Father Family Medical History: Myocardial Infarction ([place]) Additional Family Medical History / Comment(s): hardening of the arteries General Exam Limitations: no limitations General appearance: alert, in no apparent distress Head exam: Present: atraumatic, normocephalic, normal inspection ENT exam: Present: normal exam, normal oropharynx, mucous membranes moist Neck exam: Present: normal inspection. Absent: tenderness, meningismus, lymphadenopathy Respiratory exam: Present: normal lung sounds bilaterally. Absent: respiratory distress, wheezes, rales, rhonchi, stridor Cardiovascular Exam: Present: regular rate, normal rhythm, normal heart sounds. Absent: systolic murmur, diastolic murmur, rubs, gallop, clicks GI/Abdominal exam: Present: soft, normal bowel sounds. Absent: distended, tenderness, guarding, rebound, rigid Course Vital Signs 08/31/21 08:21 Temperature 98 F Pulse Rate 57 L Respiratory 16 Rate Blood Pressure 154/63 O2 Sat by Pulse 94 L Oximetry Medical Decision Making - Medical Decision Making Patient urinalysis shows 16 whites, recent prior urine culture shows ESBL. Patient will be admitted for increasing (, weakness, urinary tract infection. Patient will have consultation to Dr. Mukherjee. - Lab Data Result diagrams: 08/31/21 09:39 08/31/21 09:39 Lab Results 08/31/21 08/31/21 08/31/21 Range/Units 09:19 09:39 09:39 WBC 7.5 (3.8-10.6) k/uL RBC 4.46 (3.80-5.40) m/uL Hgb 12.7 (11.4-16.0) gm/dL Hct 39.2 (34.0-46.0) % MCV 88.0 (80.0-100.0) fL MCH 28.5 (25.0-35.0) pg MCHC 32.4 (31.0-37.0) g/dL RDW 16.9 H (11.5-15.5) % Plt Count 207 (150-450) k/uL MPV 8.6 Neutrophils % 74 % Lymphocytes % 12 % Monocytes % 6 % Eosinophils % 6 % Basophils % 1 % Neutrophils # 5.6 (1.3-7.7) k/uL Lymphocytes # 0.9 L (1.0-4.8) k/uL Monocytes # 0.4 (0-1.0) k/uL Eosinophils # 0.5 (0-0.7) k/uL Basophils # 0.1 (0-0.2) k/uL Hypochromasia Slight Anisocytosis Slight PT 10.5 (9.0-12.0) sec INR 1.0 (<1.2) APTT 20.4 L (22.0-30.0) sec Sodium (137-145) mmol/L Potassium (3.5-5.1) mmol/L Chloride (98-107) mmol/L Carbon Dioxide (22-30) mmol/L Anion Gap mmol/L BUN (7-17) mg/dL Creatinine (0.52-1.04) mg/dL Est GFR (CKD-EPI)AfAm (>60 ml/min/1.73 sqM) Est GFR (CKD-EPI)NonAf (>60 ml/min/1.73 sqM) Glucose (74-99) mg/dL Plasma Lactic Acid Paul (0.7-2.0) mmol/L Calcium (8.4-10.2) mg/dL Total Bilirubin (0.2-1.3) mg/dL AST (14-36) U/L ALT (4-34) U/L Alkaline Phosphatase (38-126) U/L Ammonia (<30) umol/L Troponin I (0.000-0.034) ng/mL Total Protein (6.3-8.2) g/dL Albumin (3.5-5.0) g/dL Urine Color Yellow Urine Appearance Clear (Clear) Urine pH 6.0 (5.0-8.0) Ur Specific [place] 1.015 (1.001-1.035) Urine Protein Negative (Negative) Urine Glucose (UA) Negative (Negative) Urine Ketones Negative (Negative) Urine Blood Negative (Negative) Urine Nitrite Negative (Negative) Urine Bilirubin Negative (Negative) Urine Urobilinogen <2.0 (<2.0) mg/dL Ur Leukocyte Esterase Moderate H (Negative) Urine RBC <1 (0-5) /hpf Urine WBC 16 H (0-5) /hpf Ur Squamous Epith Cells 1 (0-4) /hpf 08/31/21 08/31/21 08/31/21 Range/Units 09:39 09:39 09:39 WBC (3.8-10.6) k/uL RBC (3.80-5.40) m/uL Hgb (11.4-16.0) gm/dL Hct (34.0-46.0) % MCV (80.0-100.0) fL MCH (25.0-35.0) pg MCHC (31.0-37.0) g/dL RDW (11.5-15.5) % Plt Count (150-450) k/uL MPV Neutrophils % % Lymphocytes % % Monocytes % % Eosinophils % % Basophils % % Neutrophils # (1.3-7.7) k/uL Lymphocytes # (1.0-4.8) k/uL Monocytes # (0-1.0) k/uL Eosinophils # (0-0.7) k/uL Basophils # (0-0.2) k/uL Hypochromasia Anisocytosis PT (9.0-12.0) sec INR (<1.2) APTT (22.0-30.0) sec Sodium 144 (137-145) mmol/L Potassium 3.3 L (3.5-5.1) mmol/L Chloride 110 H (98-107) mmol/L Carbon Dioxide 28 (22-30) mmol/L Anion Gap 6 mmol/L BUN 14 (7-17) mg/dL Creatinine 0.82 (0.52-1.04) mg/dL Est GFR (CKD-EPI)AfAm 76 (>60 ml/min/1.73 sqM) Est GFR (CKD-EPI)NonAf 66 (>60 ml/min/1.73 sqM) Glucose 98 (74-99) mg/dL Plasma Lactic Acid Paul 0.7 (0.7-2.0) mmol/L Calcium 8.4 (8.4-10.2) mg/dL Total Bilirubin 1.1 (0.2-1.3) mg/dL AST 17 (14-36) U/L ALT 8 (4-34) U/L Alkaline Phosphatase 71 (38-126) U/L Ammonia <9 (<30) umol/L Troponin I 0.022 (0.000-0.034) ng/mL Total Protein 6.1 L (6.3-8.2) g/dL Albumin 3.3 L (3.5-5.0) g/dL Urine Color Urine Appearance (Clear) Urine pH (5.0-8.0) Ur Specific [place] (1.001-1.035) Urine Protein (Negative) Urine Glucose (UA) (Negative) Urine Ketones (Negative) Urine Blood (Negative) Urine Nitrite (Negative) Urine Bilirubin (Negative) Urine Urobilinogen (<2.0) mg/dL Ur Leukocyte Esterase (Negative) Urine RBC (0-5) /hpf Urine WBC (0-5) /hpf Ur Squamous Epith Cells (0-4) /hpf Disposition Clinical Impression: Urinary tract infection, Failure of outpatient treatment, Generalized weakness Disposition: ADMITTED IP TO THIS [facility] Condition: Fair Referrals: Shawna Pearson MD [Primary Care Provider] - 1-2 days Time of Disposition: 11:02
[2021-08-31] MEDS ORDERED: cloNIDine HCL 0.1 MG TAB PO PRN (11:04)
--- NOTE | 2021-08-31 13:16 | P.HPIM ---
History of Present Illness H&P Date: 08/31/21 Chief Complaint: UTI 85 female with hx of dementia presents emergency department via EMS with chief complaint of increasing confusion, weakness, diaphoresis and profuse sweats this morning. No fevers. Her daughter had to force her to eat and drink as she did not want to. Patient was recently hospitalized for ESBL urinary tract infection. There are states that she was doing greatly improved at home but after 2 days of finishing treatment she started having worsening symptoms, similar to her last event. She was treated with Invanz for 10 days. Patient was being followed by Dr. Bustillos but she did not get to see him in the office yet. No other associated symptoms including nausea, vomiting, pain, fevers, diarrhea. Evaluation in the emergency department showed mild hypokalemia with K of 3.3, urinalysis was positive for pyuria. She was admitted for further evaluation and management. Review of Systems Complete review of system performed, pertinent positives per HPI, otherwise negative Past Medical History Past Medical History: Coronary Artery Disease (CAD), Hyperlipidemia, Pulmonary Embolus (PE) Additional Past Medical History / Comment(s): SEE DR BAUER'S H&P,FREQ DIZZINESS,FREQ UTI'S, urinary retention -self caths, constipation, shingles 10 years ago, osteoporosis History of Any Multi-Drug Resistant Organisms: ESBL Date of last positivie culture/infection: 08/11/21 ESBL E.coli MDRO Source:: Urine Past Surgical History: Back Surgery, Coronary Bypass/CABG, Orthopedic Surgery, Tonsillectomy Additional Past Surgical History / Comment(s): PAIN CLINIC PROCEDURES,CABG 2 VESSEL 2004, maxwell cataracts,rt rotator cuff, rt hip/donna in place,"implanted monitor to monitor any cardic changes that could explain her syncopal episodes" Past Anesthesia/Blood Transfusion Reactions: Motion Sickness Past Psychological History: No Psychological Hx Reported Smoking Status: Never smoker Past Alcohol Use History: None Reported Past Drug Use History: None Reported - Past Family History Mother Family Medical History: Cancer Additional Family Medical History / Comment(s): LUNG cancer Father Family Medical History: Myocardial Infarction ([place]) Additional Family Medical History / Comment(s): hardening of the arteries Medications and Allergies Home Medications Medication Instructions Recorded Confirmed Type Donepezil HCl [Aricept] 10 mg PO DAILY 01/07/21 08/31/21 History Memantine HCl [Memantine HCl ER] 28 mg PO DAILY 01/07/21 08/31/21 History cloNIDine HCL [Catapres] 0.1 mg PO DAILY PRN 08/11/21 08/31/21 History cycloSPORINE 0.05% OPHTH SOLN 0.5 ampul BOTH EYES Q12H 08/11/21 08/31/21 History [Restasis] Allergies Allergy/AdvReac Type Severity Reaction Status Date / Time Sulfa (Sulfonamide Allergy Unknown Verified 08/31/21 10:20 Antibiotics) doxycycline AdvReac Rash/Hives Verified 08/31/21 10:20 nitrofurantoin AdvReac fainting Verified 08/31/21 10:20 [From Macrobid] Physical Exam Vitals: Vital Signs Temp Pulse Resp BP Pulse Ox 08/31/21 08:21 98 F 57 L 16 154/63 94 L Intake and Output 08/30/21 08/31/21 08/31/21 22:59 06:59 14:59 Other: Weight 54.8 kg Constitutional: No acute distress, conversant, pleasant Eyes:Anicteric sclerae, moist conjunctiva, no lid-lag, PERRLA, ENMT: Oropharynx clear, no erythema, exudates Neck: Supple, FROM, no masses, or JVD, No carotid bruits, No thyromegaly Lungs: Clear to auscultation, Clear to percussion, Normal respiratory effort, no accessory muscle use Cardiovascular: Heart regular in rate and rhythm, No murmurs, gallops, or rubs, No peripheral edema Abdominal: Soft, Nontender, no guarding, rebound or rigidity, Normoactive bowel sounds, No hepatomegaly, No splenomegaly, No palpable mass Skin: Normal temperature, tone, texture, turgor, no induration, No subcutaneous nodules, No rash, lesions, No ulcers Extremities: No digital cyanosis, No clubbing, Pedal pulses intact and symmetrical, Radial pulses intact and symmetrical, No calf tenderness Neuro: Muscles Strength 5/5 in all 4 extremities, Sensation to light touch grossly present throughout, Cranial nerves II-XII grossly intact, no focal sensory deficits Results CBC & Chem 7: 08/31/21 09:39 08/31/21 09:39 Labs: Abnormal Lab Results - Last 24 Hours (Table) 08/31/21 08/31/21 08/31/21 Range/Units 09:19 09:39 09:39 RDW 16.9 H (11.5-15.5) % Lymphocytes # 0.9 L (1.0-4.8) k/uL APTT 20.4 L (22.0-30.0) sec Potassium (3.5-5.1) mmol/L Chloride (98-107) mmol/L Total Protein (6.3-8.2) g/dL Albumin (3.5-5.0) g/dL Ur Leukocyte Esterase Moderate H (Negative) Urine WBC 16 H (0-5) /hpf 08/31/21 Range/Units 09:39 RDW (11.5-15.5) % Lymphocytes # (1.0-4.8) k/uL APTT (22.0-30.0) sec Potassium 3.3 L (3.5-5.1) mmol/L Chloride 110 H (98-107) mmol/L Total Protein 6.1 L (6.3-8.2) g/dL Albumin 3.3 L (3.5-5.0) g/dL Ur Leukocyte Esterase (Negative) Urine WBC (0-5) /hpf Assessment and Plan Plan: Recurrent urinary tract infection with history of ESBL Urine cultures Consult ID for antibiotic management History of hypertension Coronary Artery Disease (CAD), Hyperlipidemia Osteoporosis All stable Resume meds Admit to inpatient, expected length of stay more than 2 midnights
--- NOTE | 2021-08-31 14:26 | US ---
EXAMINATION TYPE: US renals and bladder DATE OF EXAM: 08/31/2021 COMPARISON: NONE CLINICAL HISTORY: uti recurrent. Recurrent UTI EXAM MEASUREMENTS: Right Kidney: 9.9 x 5.0 x 4.8 cm Left Kidney: 8.4 x 4.1 x 4.0 cm Right Kidney: Hypoechoic nodule mid/lateral= 1.1 x 0.8 x 1.0 cm, no evidence of nephrolithiasis or hy dronephrosis, lower pole gassed out Left Kidney: Small in size, no evidence of hydronephrosis or nephrolithiasis. Lower pole gassed out Bladder: Probable debris at dependent portion, bladder wall diverticula Bilateral Jets seen: No IMPRESSION: 1. Suggestion of debris within the dependent portion of the bladder correlate with urinalysis. Infect ious etiology or hemorrhage in the differential diagnosis. Small bladder diverticulum noted. 2. Too small to characterize hypoechoic nodule right lateral kidney most likely related to simple cys t.
[2021-08-31] MEDS: SODIUM CHLORIDE 0.9% 1,000 ML IV SCH (18:28)
[2021-08-31] MEDS: cycloSPORINE 0.05% OPHTH 0.4 ML DROPERETTE BOTH EYES SCH ×2 (18:28→21:13)
[2021-08-31] MEDS ORDERED: Potassium Replacement Protocol 1 EACH MISC MISCELLANE PRN (19:21)
[2021-08-31] MEDS: POTASSIUM CHLORIDE ER 20 MEQ TAB.ER PO SCH ×2 (21:13→22:22)
[2021-08-31] MEDS: MEMANTINE 10 MG TAB PO SCH (21:13)
--- NOTE | 2021-08-31 23:10 | P.CONS ---
History of Present Illness - Reason for Consult Consult date: 08/31/21 - History of Present Illness Patient is 85-year-old female with a past medical history significant for dementia history of recurrent UTI patient was recently admitted at this facility and was diagnosed with ESBL E. coli urinary tract infection patient did get a midline and was given a 10-day course of Invanz with the patient has completed patient failed to make a outpatient follow-up and the midline was subsequently discontinued patient has not been brought back to the hospital this morning via EMS with complaints of increasing confusion and mental status changes along with the weakness patient on presentation to the hospital was afebrile and no fever have been recorded subsequently patient did have a normal white count no left shift BUN/creatinine has been normal UA shows moderate leukocyte esterase and 16 WBC cultures has been ordered patient was started on Invanz infectious disease was consulted for further management patient also have renal ultrasound which did shows a debris's within the dependent portion of the bladder, patient is currently slightly upset she knew that she is in the hospital and mention nothing wrong with her she is currently on room air denies any chest pain or shortness of breath or cough no abdominal pain no diarrhea and no urinary symptoms Past Medical History Past Medical History: Coronary Artery Disease (CAD), Hyperlipidemia, Pulmonary Embolus (PE) Additional Past Medical History / Comment(s): SEE DR BAUER'S H&P,FREQ DIZZINESS,FREQ UTI'S, urinary retention -self caths, constipation, shingles 10 years ago, osteoporosis History of Any Multi-Drug Resistant Organisms: ESBL Year Discovered:: 08/11/21 ESBL E.coli MDRO Source:: Urine Past Surgical History: Back Surgery, Coronary Bypass/CABG, Orthopedic Surgery, Tonsillectomy Additional Past Surgical History / Comment(s): PAIN CLINIC PROCEDURES,CABG 2 VESSEL 2004, maxwell cataracts,rt rotator cuff, rt hip/donna in place,"implanted monitor to monitor any cardic changes that could explain her syncopal episodes" Past Anesthesia/Blood Transfusion Reactions: Motion Sickness Past Psychological History: No Psychological Hx Reported Smoking Status: Never smoker Past Alcohol Use History: None Reported Past Drug Use History: None Reported - Past Family History Mother Family Medical History: Cancer Additional Family Medical History / Comment(s): LUNG cancer Father Family Medical History: Myocardial Infarction ([place]) Additional Family Medical History / Comment(s): hardening of the arteries Medications and Allergies Home Medications Medication Instructions Recorded Confirmed Type Donepezil HCl [Aricept] 10 mg PO DAILY 01/07/21 08/31/21 History Memantine HCl [Memantine HCl ER] 28 mg PO DAILY 01/07/21 08/31/21 History cloNIDine HCL [Catapres] 0.1 mg PO DAILY PRN 08/11/21 08/31/21 History cycloSPORINE 0.05% OPHTH SOLN 0.5 ampul BOTH EYES Q12H 08/11/21 08/31/21 History [Restasis] Allergies Allergy/AdvReac Type Severity Reaction Status Date / Time Sulfa (Sulfonamide Allergy Unknown Verified 08/31/21 10:20 Antibiotics) doxycycline AdvReac Rash/Hives Verified 08/31/21 10:20 nitrofurantoin AdvReac fainting Verified 08/31/21 10:20 [From Macrobid] Physical Exam Vitals: Vital Signs Temp Pulse Pulse Resp BP BP Pulse Ox 08/31/21 20:20 93 L 08/31/21 19:35 98.1 F 60 16 148/69 93 L 08/31/21 18:16 98.8 F 71 18 136/72 92 L 08/31/21 14:02 98.3 F 55 L 18 145/77 94 L 08/31/21 08:21 98 F 57 L 16 154/63 94 L FiO2 08/31/21 20:20 21 08/31/21 19:35 08/31/21 18:16 08/31/21 14:02 08/31/21 08:21 Intake and Output 08/31/21 08/31/21 09/01/21 14:59 22:59 06:59 Intake Total 600 Balance 600 Intake: IV 600 Sodium Chloride 0.9% 1, 600 000 ml @ 75 mls/hr IV . [id number] [facility] Rx#:[id number] Other: Weight 54.8 kg Results CBC & Chem 7: 08/31/21 09:39 08/31/21 09:39 Labs: Abnormal Lab Results - Last 24 Hours (Table) 08/31/21 08/31/21 08/31/21 Range/Units 09:19 09:39 09:39 RDW 16.9 H (11.5-15.5) % Lymphocytes # 0.9 L (1.0-4.8) k/uL APTT 20.4 L (22.0-30.0) sec Potassium (3.5-5.1) mmol/L Chloride (98-107) mmol/L Total Protein (6.3-8.2) g/dL Albumin (3.5-5.0) g/dL Ur Leukocyte Esterase Moderate H (Negative) Urine WBC 16 H (0-5) /hpf 08/31/21 Range/Units 09:39 RDW (11.5-15.5) % Lymphocytes # (1.0-4.8) k/uL APTT (22.0-30.0) sec Potassium 3.3 L (3.5-5.1) mmol/L Chloride 110 H (98-107) mmol/L Total Protein 6.1 L (6.3-8.2) g/dL Albumin 3.3 L (3.5-5.0) g/dL Ur Leukocyte Esterase (Negative) Urine WBC (0-5) /hpf Microbiology - Last 24 Hours (Table) 08/31/21 09:19 Urine Culture - Preliminary Urine,Catheterized Assessment and Plan Plan: 1patient presented to hospital with confusion which is multifactorial in this patient with underlying dementia patient did have mildly positive UA however had no urinary symptoms patient did not have any fever or elevated white count, 2patient with multiple antibiotic allergies that would limit the number of antibiotics safe to use 3May continue with Invanz 1 g daily while waiting for the culture to finalize. We will follow on clinical condition and cultures to further adjust medication if needed Thank you for this consultation will follow this patient along with you Time with Patient: Greater than 30
[2021-09-01] MEDS: ERTAPENEM 1 GM in SODIUM CHLORIDE 0.9% 50 ML IVPB SCH (08:00)
[2021-09-01] MEDS: DONEPEZIL 10 MG TAB PO SCH (08:01)
[2021-09-01] MEDS: SODIUM CHLORIDE 0.9% 1,000 ML IV SCH ×3 (08:01→20:15)
[2021-09-01] MEDS: cycloSPORINE 0.05% OPHTH 0.4 ML DROPERETTE BOTH EYES SCH ×2 (08:01→20:15)
[2021-09-01] MEDS: MEMANTINE 10 MG TAB PO SCH ×2 (08:01→20:15)
[2021-09-01 12:38] LABS: Anisocytosis Slight; Basophils % (A) 0 %; Eosinophils # (A) 0.4 k/uL (0-0.7); Eosinophils % (A) 6 %; HCT 36.5 % (34.0-46.0); HGB 11.8 gm/dL (11.4-16.0); Hypochromasia Slight; Lymphocytes # (A) 0.6 k/uL (1.0-4.8); Lymphocytes % (A) 9 %; MCH 28.5 pg (25.0-35.0); MCHC 32.3 g/dL (31.0-37.0); MCV 88.1 fL (80.0-100.0); Monocytes # (A) 0.4 k/uL (0-1.0); Monocytes % (A) 6 %; Neutrophils # (A) 5.1 k/uL (1.3-7.7); Neutrophils % (A) 77 %; Platelet Count 199 k/uL (150-450); RBC 4.15 m/uL (3.80-5.40); RDW 16.7 % (11.5-15.5); WBC 6.6 k/uL (3.8-10.6)
[2021-09-01 12:50] LABS: African American GFR (CKD) >90 (>60 ml/min/1.73 sqM); Anion Gap 5 mmol/L; Blood Urea Nitrogen 9 mg/dL (7-17); Calcium 8.6 mg/dL (8.4-10.2); Carbon Dioxide 25 mmol/L (22-30); Chloride 110 mmol/L (98-107); Glucose 107 mg/dL (74-99); Non-African American GFR(CKD) 80 (>60 ml/min/1.73 sqM); Potassium 3.8 mmol/L (3.5-5.1); Sodium 140 mmol/L (137-145)
--- NOTE | 2021-09-01 14:16 | P.PN ---
Subjective Progress Note Date: 09/01/21 Principal diagnosis: UTI She was noted to be retaining urine last night, had to be straight cathed twice. A mueller was eventually inserted. Daughter stated that years ago patient had to straight cath herself after having an epidural. She recovered after about 7 years of doing that. Over the past 10 years however she was able to urinate by herself again. Objective - Vital Signs Vital signs: Vital Signs Temp 98.6 F 09/01/21 12:37 Pulse 68 09/01/21 12:37 Resp 15 09/01/21 12:37 BP 118/64 09/01/21 12:37 Pulse Ox 91 L 09/01/21 12:37 FiO2 21 08/31/21 20:20 Intake & Output 08/31/21 09/01/21 09/01/21 18:59 06:59 18:59 Intake Total 600 900 Output Total 850 Balance 600 50 Weight 54.8 kg Intake: IV 600 900 Sodium Chloride 0.9% 1, 600 900 000 ml @ 75 mls/hr IV . [id number] [facility] Rx#:[id number] Output: Urine 850 Other: Voiding Method Indwelling Catheter # Bowel Movements 1 - Exam Constitutional: No acute distress, conversant, pleasant Eyes:Anicteric sclerae, moist conjunctiva, no lid-lag, PERRLA, ENMT: Oropharynx clear, no erythema, exudates Neck: Supple, FROM, no masses, or JVD, No carotid bruits, No thyromegaly Lungs: Clear to auscultation, Clear to percussion, Normal respiratory effort, no accessory muscle use Cardiovascular: Heart regular in rate and rhythm, No murmurs, gallops, or rubs, No peripheral edema Abdominal: Soft, Nontender, no guarding, rebound or rigidity, Normoactive bowel sounds, No hepatomegaly, No splenomegaly, No palpable mass Skin: Normal temperature, tone, texture, turgor, no induration, No subcutaneous nodules, No rash, lesions, No ulcers Extremities: No digital cyanosis, No clubbing, Pedal pulses intact and symmetrical, Radial pulses intact and symmetrical, No calf tenderness Neuro: Muscles Strength 5/5 in all 4 extremities, Sensation to light touch grossly present throughout, Cranial nerves II-XII grossly intact, no focal sensory deficits - Labs CBC & Chem 7: 09/01/21 12:00 09/01/21 12:00 Labs: Abnormal Lab Results - Last 24 Hours (Table) 09/01/21 09/01/21 Range/Units 12:00 12:00 RDW 16.7 H (11.5-15.5) % Lymphocytes # 0.6 L (1.0-4.8) k/uL Chloride 110 H (98-107) mmol/L Glucose 107 H (74-99) mg/dL Microbiology - Last 24 Hours (Table) 08/31/21 09:19 Urine Culture - Preliminary Urine,Catheterized Assessment and Plan Plan: Recurrent urinary tract infection with history of ESBL Urine cultures pending D/w ID, will continue invanz for now. Awaiting cultures. Urine retention Has a mueller now. Consult urology. History of hypertension Coronary Artery Disease (CAD), Hyperlipidemia Osteoporosis All stable Resume meds
--- NOTE | 2021-09-02 06:53 | P.GSCN ---
History of Present Illness Consult date: 09/01/21 Reason for Consult: Urinary retention Requesting physician: Sammie Bautista History of present illness: The patient is an 85-year-old white female with a history of dementia. She underwent an epidural injection in 2003, resulting in urinary retention. She performed intermittent self-catheterization following that. She was last seen in our office in January 2018. At that time, the postvoid residual was 66 mL a nd she was advised to only perform intermittent self-catheterization as needed. She had bacteriuria at that time but was asymptomatic. She has been treated for recurrent UTIs. She presented to the ER with confusion, weakness, anorexia, sweats, and diaphoresis. She was recently hospitalized for treatment of an ESBL E. coli UTI. She received Invanz for 10 days. Unfortunately, her symptoms wors ened 2 days after completing antibiotic therapy. Renal ultrasound performed yesterday showed a right renal cyst and no evidence of hydronephrosis. The kidneys were incompletely visualized. Debris was seen within the bladder. Postvoid residuals during this hospitalization have been elevated, and catheterization volumes have been 500 mL, 650 mL, and 950 mL. A Davila catheter has been placed and is draining clear yellow urine. Review of Systems - Constitutional Reports poor appetite, Reports sweats, Reports weakness, Denies fever - Genitourinary Genitourinary: Reports as per HPI - Neurological Reports confusion Past Medical History Past Medical History: Coronary Artery Disease (CAD), Hyperlipidemia, Pulmonary Embolus (PE) Additional Past Medical History / Comment(s): SEE DR BAUER'S H&P,FREQ DIZZINE SS,FREQ UTI'S, urinary retention -self caths, constipation, shingles 10 years ago, osteoporosis History of Any Multi-Drug Resistant Organisms: ESBL Year Discovered:: 08/11/21 ESBL E.coli MDRO Source:: Urine Past Surgical History: Back Surgery, Coronary Bypass/CABG, Orthopedic Surgery, Tonsillectomy Additional Past Surgical History / Comment(s): PAIN CLINIC PROCEDURES,CABG 2 VESSEL 2003, maxwell cataracts,rt rotator cuff, rt hip/donna in place,"implanted monitor to monitor any cardic changes that could explain her syncopal episodes" Past Anesthesia/Blood Transfusion Reactions: Motion Sickness Past Psychological History: No Psychological Hx Reported Smoking Status: Never smoker Past Alcohol Use History: None Reported Past Drug Use History: None Reported - Past Family History Mother Family Medical History: Cancer Additional Family Medical History / Comment(s): LUNG cancer Father Family Medical History: Myocardial Infarction ([place]) Additional Family Medical History / Comment(s): hardening of the arteries Medications and Allergies Home Medications Medication Instructions Recorded Confirmed Type Donepezil HCl [Aricept] 10 mg PO DAILY 01/07/21 08/31/21 History Memantine HCl [Memantine HCl ER] 28 mg PO DAILY 01/07/21 08/31/21 History cloNIDine HCL [Catapres] 0.1 mg PO DAILY PRN 08/11/21 08/31/21 History cycloSPORINE 0.05% OPHTH SOLN 0.5 ampul BOTH EYES Q12H 08/11/21 08/31/21 History [Restasis] Allergies Allergy/AdvReac Type Severity Reaction Status Date / Time Sulfa (Sulfonamide Allergy Unknown Verified 08/31/21 10:20 Antibiotics) doxycycline AdvReac Rash/Hives Verified 08/31/21 10:20 nitrofurantoin AdvReac fainting Verified 08/31/21 10:20 [From Macrobid] Surgical - Exam Vital Signs Temp Pulse Resp BP Pulse Ox 98 F 57 L 16 154/63 94 L 08/31/21 08:21 08/31/21 08:21 08/31/21 08:21 08/31/21 08:21 08/31/21 08:21 - General well developed, well nourished, no distress - Respiratory normal respiratory effort - Abdomen Abdomen: soft, non tender, no guarding, no rigid, no rebound - Psychiatric oriented to time, oriented to person, oriented to place, speech is normal, memory intact Results - Labs 09/01/21 12:00 09/01/21 12:00 Abnormal Lab Results - Last 24 Hours (Table) 09/01/21 09/01/21 Range/Units 12:00 12:00 RDW 16.7 H (11.5-15.5) % Lymphocytes # 0.6 L (1.0-4.8) k/uL Chloride 110 H (98-107) mmol/L Glucose 107 H (74-99) mg/dL Microbiology - Last 24 Hours (Table) 08/31/21 12:12 Blood Culture - Preliminary Blood No Growth after 24 hours 08/31/21 12:02 Blood Culture - Preliminary Blood No Growth after 24 hours Diabetes panel 09/01/21 Range/Units 12:00 Sodium 140 (137-145) mmol/L Potassium 3.8 (3.5-5.1) mmol/L Chloride 110 H (98-107) mmol/L Carbon Dioxide 25 (22-30) mmol/L BUN 9 (7-17) mg/dL Creatinine 0.69 (0.52-1.04) mg/dL Glucose 107 H (74-99) mg/dL Calcium 8.6 (8.4-10.2) mg/dL Calcium panel 09/01/21 Range/Units 12:00 Calcium 8.6 (8.4-10.2) mg/dL Pituitary panel 09/01/21 Range/Units 12:00 Sodium 140 (137-145) mmol/L Potassium 3.8 (3.5-5.1) mmol/L Chloride 110 H (98-107) mmol/L Carbon Dioxide 25 (22-30) mmol/L BUN 9 (7-17) mg/dL Creatinine 0.69 (0.52-1.04) mg/dL Glucose 107 H (74-99) mg/dL Calcium 8.6 (8.4-10.2) mg/dL Adrenal panel 09/01/21 Range/Units 12:00 Sodium 140 (137-145) mmol/L Potassium 3.8 (3.5-5.1) mmol/L Chloride 110 H (98-107) mmol/L Carbon Dioxide 25 (22-30) mmol/L BUN 9 (7-17) mg/dL Creatinine 0.69 (0.52-1.04) mg/dL Glucose 107 H (74-99) mg/dL Calcium 8.6 (8.4-10.2) mg/dL - Imaging US - kidney/bladder: report reviewed Assessment and Plan Plan: As stated, the patient has a history of incomplete bladder emptying which has recently exacerbated. She has an indwelling Davila catheter in place. Unfortunately, there are no good options in managing her condition. Given her physical and mental condition, it is likely that she can no longer perform i ntermittent self-catheterization. That leaves the options of observation versus a chronic indwelling catheter, each having pros and cons. I will attempt to contact her daughter to discuss this issue with her. In the meantime, I would suggest that the Davila catheter remain in place. Time with Patient: Greater than 30
[2021-09-02] MEDS: MEMANTINE 10 MG TAB PO SCH ×2 (08:18→19:34)
[2021-09-02] MEDS: ERTAPENEM 1 GM in SODIUM CHLORIDE 0.9% 50 ML IVPB SCH (08:18)
[2021-09-02] MEDS: DONEPEZIL 10 MG TAB PO SCH (08:18)
[2021-09-02] MEDS: cycloSPORINE 0.05% OPHTH 0.4 ML DROPERETTE BOTH EYES SCH ×2 (08:18→19:34)
--- NOTE | 2021-09-02 09:41 | P.CRDCN ---
History of Present Illness History of present illness: This is a 85 year old female with a past medical history of dementia, coronary artery disease s/p CABG in 2003, hypertension, dyslipidemia, carotid atherosclerosis, aortic insufficiency, aortic stenosis, UTI, urinary retention. She currently does not follow with a line inspector, did see Dr. Gudino in 2020. We have been consulted for chest pain. Patient presented to the ER on 08/31/21 from home. She is alert and oriented to person, knows that she is in the hospital, but unsure which one. She is unsure why she is in the hospital. She is a poor historian. She is seen and examined at bedside, she has no complaints. Lying flat in be comfortably. She denies any chest pain, shortness of breath, lightheadedness, dizziness, near syncope, abdominal pain, nausea, vomiting. She has no complaints this morning. She does state she has no been eating or drinking enough. She was recently diagnosed with a UTI, urology and infectious disease is following the patient. DIAGNOSTICS EKG reveals sinus bradycardia, heart rate 52, left axis deviation, nonspecific T-wave abnormalities. No acute ischemia noted.. Chest xray no acute heart failure seen, mild corsened central interstitium Renal ultrasound report revealed suggestion of degrees within the dependent portion of the bladder correlate with urinalysis. Infectious etiology or hemorrhage in the differential diagnosis. Laboratory reviewed, troponin negative, WBC 6.6, hemoglobin 11.8, platelets 199, sodium 140, potassium 3.8, BUN 9, serum creatinine 0.6 Current home cardiac medications include clonidine 0.1 mg when necessary Echocardiogram in 2020 in the office revealed an EF of 50%, moderate concentric hypertrophy, moderate to severe aortic stenosis, moderate aortic regurgitation, moderate mitral regurgitation Lexiscan stress test in the office in 2020 was no evidence of reversible ischemia REVIEW OF SYSTEMS At the time of my exam: CONSTITUTIONAL: Denies fever or chills. CARDIOVASCULAR: Denies chest pain, shortness of breath, orthopnea, PND or palpitations. RESPIRATORY: Denies cough. GASTROINTESTINAL: Denies abdominal pain, diarrhea, constipation, nausea or vomiting. MUSCULOSKELETAL: Denies myalgias. NEUROLOGIC: Denies numbness, tingling, headacbe or weakness. ENDOCRINE: Denies fatigue, weight change, polydipsia or polyurina. GENITOURINARY: Denies burning, hematuria or urgency with micturation. HEMATOLOGIC: Denies history of anemia or bleeding. PHYSICAL EXAMINATION Blood pressure 158/68, heart rate 68, afebrile, oxygen saturation is 94% on room air CONSTITUTIONAL: No apparent distress. HEENT: Head is normocephalic. Pupils are equal, round. Sclerae anicteric. Mucous membranes of the mouth are moist. No JVD. No carotid bruit. CHEST EXAMINATION: Lungs are clear to auscultation. No chest wall tenderness is noted on palpation or with deep breathing. HEART EXAMINATION: Regular rate and rhythm. S1, S2 heard. Systolic murmur heard at apex and right sternal border ABDOMEN: Soft, nontender. Positive bowel sounds. EXTREMITIES: 2+ peripheral pulses, no lower extremity edema and no calf tenderness. NEUROLOGIC EXAMINATION: Patient is awake, alert and oriented to person, knows she is in the hospital ASSESSMENT UTI Altered mental status Dehydration Urinary retention Dementia Coronary artery disease s/p CABG in 2002 Hypertension Dyslipidemia Carotid atherosclerosis Aortic insufficiency Aortic stenosis PLAN Patient does not endorse any chest pain. No further workup from a cardiology perspective. Rest of management per primary. Recommend code status discussion with patient and family. Please reach out with any further questions or concerns Nurse practitioner note has been reviewed by physician. Signing provider agrees with the documented findings, assessment, and plan of care. Past Medical History Past Medical History: Coronary Artery Disease (CAD), Hyperlipidemia, Pulmonary Embolus (PE) Additional Past Medical History / Comment(s): SEE DR GUDINO'S H&P,FREQ DIZZINESS,FREQ UTI'S, urinary retention -self caths, constipation, shingles 10 years ago, osteoporosis History of Any Multi-Drug Resistant Organisms: ESBL Date of last positivie culture/infection: 08/11/21 ESBL E.coli MDRO Source:: Urine Past Surgical History: Back Surgery, Coronary Bypass/CABG, Orthopedic Surgery, Tonsillectomy Additional Past Surgical History / Comment(s): PAIN CLINIC PROCEDURES,CABG 2 VESSEL 2003, maxwell cataracts,rt rotator cuff, rt hip/donna in place,"implanted monitor to monitor any cardic changes that could explain her syncopal episodes" Past Anesthesia/Blood Transfusion Reactions: Motion Sickness Past Psychological History: No Psychological Hx Reported Smoking Status: Never smoker Past Alcohol Use History: None Reported Past Drug Use History: None Reported - Past Family History Mother Family Medical History: Cancer Additional Family Medical History / Comment(s): LUNG cancer Father Family Medical History: Myocardial Infarction ([place]) Additional Family Medical History / Comment(s): hardening of the arteries Medications and Allergies Home Medications Medication Instructions Recorded Confirmed Type Donepezil HCl [Aricept] 10 mg PO DAILY 01/07/21 08/31/21 History Memantine HCl [Memantine HCl ER] 28 mg PO DAILY 01/07/21 08/31/21 History cloNIDine HCL [Catapres] 0.1 mg PO DAILY PRN 08/11/21 08/31/21 History cycloSPORINE 0.05% OPHTH SOLN 0.5 ampul BOTH EYES Q12H 08/11/21 08/31/21 History [Restasis] Allergies Allergy/AdvReac Type Severity Reaction Status Date / Time Sulfa (Sulfonamide Allergy Unknown Verified 08/31/21 10:20 Antibiotics) doxycycline AdvReac Rash/Hives Verified 08/31/21 10:20 nitrofurantoin AdvReac fainting Verified 08/31/21 10:20 [From Macrobid] Physical Exam Vitals: Vital Signs Temp Pulse Resp BP Pulse Ox FiO2 09/02/21 07:31 91 L 21 09/02/21 04:37 98.3 F 61 16 126/69 92 L 09/01/21 19:57 99 F 66 16 115/63 93 L 09/01/21 19:45 66 16 09/01/21 12:37 98.6 F 68 15 118/64 91 L Intake and Output 09/01/21 09/02/21 09/02/21 22:59 06:59 14:59 Intake Total 950 900 Output Total 800 Balance 950 100 Intake: IV 900 900 Sodium Chloride 0.9% 1, 900 900 000 ml @ 75 mls/hr IV . [id number] [facility] Rx#:[id number] Intake, IV Titration 50 Amount Ertapenem 1 gm In Sodium 50 Chloride 0.9% 50 ml @ 100 mls/hr IVPB DAILY [facility] Rx #:[id number] Output: Urine 800 Other: Voiding Method Indwelling Catheter Results 09/01/21 12:00 09/01/21 12:00 CBC 09/01/21 Range/Units 12:00 WBC 6.6 (3.8-10.6) k/uL RBC 4.15 (3.80-5.40) m/uL Hgb 11.8 (11.4-16.0) gm/dL Hct 36.5 (34.0-46.0) % Plt Count 199 (150-450) k/uL Comprehensive Metabolic Panel 09/01/21 Range/Units 12:00 Sodium 140 (137-145) mmol/L Potassium 3.8 (3.5-5.1) mmol/L Chloride 110 H (98-107) mmol/L Carbon Dioxide 25 (22-30) mmol/L BUN 9 (7-17) mg/dL Creatinine 0.69 (0.52-1.04) mg/dL Glucose 107 H (74-99) mg/dL Calcium 8.6 (8.4-10.2) mg/dL Current Medications Generic Name Dose Route Start Last Admin Trade Name Freq PRN Reason Stop Dose Admin Clonidine 0.1 mg 08/31/21 11:04 Clonidine Hcl 0.1 Mg Tab PO DAILY PRN Blood Pressure - High Cyclosporine 1 drops 08/31/21 11:15 09/01/21 20:15 Cyclosporine 0.05% Ophth 0.4 Ml Droperette BOTH EYES 1 drops Q12HR [facility] Administration Donepezil HCl 10 mg 09/01/21 09:00 09/01/21 08:01 Donepezil 10 Mg Tab PO 10 mg DAILY [facility] Administration Sodium Chloride 1,000 mls @ 75 mls/hr 08/31/21 11:15 09/01/21 20:15 Saline 0.9% IV 75 mls/hr .[id number] [facility] Administration Ertapenem 1 gm/ Sodium 50 mls @ 100 mls/hr 09/01/21 09:00 09/01/21 08:00 Chloride IVPB 100 mls/hr DAILY [facility] Administration Protocol Memantine 10 mg 08/31/21 21:00 09/01/21 20:15 Memantine 10 Mg Tab PO 10 mg BID EVIE Administration Miscellaneous Information 1 each 08/31/21 19:21 Potassium Replacement Protocol 1 Each Misc MISCELLANE DAILY PRN Per Protocol Protocol Naloxone HCl 0.2 mg 08/31/21 11:02 Naloxone 0.4 Mg/Ml 1 Ml Vial IV Q2M PRN Opioid Reversal Intake and Output 09/01/21 09/02/21 09/02/21 22:59 06:59 14:59 Intake Total 950 900 Output Total 800 Balance 950 100 Intake: IV 900 900 Sodium Chloride 0.9% 1, 900 900 000 ml @ 75 mls/hr IV . [id number] [facility] Rx#:[id number] Intake, IV Titration 50 Amount Ertapenem 1 gm In Sodium 50 Chloride 0.9% 50 ml @ 100 mls/hr IVPB DAILY [facility] Rx #:[id number] Output: Urine 800 Other: Voiding Method Indwelling Catheter 09/01/21 12:00 09/01/21 12:00
--- NOTE | 2021-09-02 12:29 | P.PN ---
Subjective Progress Note Date: 09/02/21 Principal diagnosis: UTI Patient is more awake and communicative according to her daughter. She is feeling well currently, no fevers, chills, pain, shortness of breath. No overn ight events. Objective - Vital Signs Vital signs: Vital Signs Temp 98.4 F 09/02/21 08:00 Pulse 68 09/02/21 08:00 Resp 16 09/02/21 08:00 BP 158/68 09/02/21 08:00 Pulse Ox 94 L 09/02/21 08:00 FiO2 21 09/02/21 07:31 Intake & Output 09/01/21 09/02/21 09/02/21 18:59 06:59 18:59 Intake Total 950 900 Output Total 800 Balance 950 100 Intake: IV 900 900 Sodium Chloride 0.9% 1, 900 900 000 ml @ 75 mls/hr IV . [id number] COUNT INCLUDES THE [facility] Rx#:[id number] Intake, IV Titration 50 Amount Ertapenem 1 gm In Sodium 50 Chloride 0.9% 50 ml @ 100 mls/hr IVPB DAILY COUNT INCLUDES THE [facility] Rx #:[id number] Output: Urine 800 Other: Voiding Method Indwelling Catheter Indwelling Catheter Indwelling Catheter # Bowel Movements 1 - Exam Constitutional: No acute distress, conversant, pleasant Eyes:Anicteric sclerae, moist conjunctiva, no lid-lag, PERRLA, ENMT: Oropharynx clear, no erythema, exudates Neck: Supple, FROM, no masses, or JVD, No carotid bruits, No thyromegaly Lungs: Clear to auscultation, Clear to percussion, Normal respiratory effort, no accessory muscle use Cardiovascular: Heart regular in rate and rhythm, No murmurs, gallops, or rubs, No peripheral edema Abdominal: Soft, Nontender, no guarding, rebound or rigidity, Normoactive bowel sounds, No hepatomegaly, No splenomegaly, No palpable mass Skin: Normal temperature, tone, texture, turgor, no induration, No subcutaneous nodules, No rash, lesions, No ulcers Extremities: No digital cyanosis, No clubbing, Pedal pulses intact and sy mmetrical, Radial pulses intact and symmetrical, No calf tenderness Neuro: Muscles Strength 5/5 in all 4 extremities, Sensation to light touch grossly present throughout, Cranial nerves II-XII grossly intact, no focal sensory deficits - Labs CBC & Chem 7: 06/22/22 12:00 09/01/21 12:00 Labs: Abnormal Lab Results - Last 24 Hours (Table) 09/01/21 09/01/21 Range/Units 12:00 12:00 RDW 16.7 H (11.5-15.5) % Lymphocytes # 0.6 L (1.0-4.8) k/uL Chloride 110 H (98-107) mmol/L Glucose 107 H (74-99) mg/dL Microbiology - Last 24 Hours (Table) 08/31/21 12:12 Blood Culture - Preliminary Blood No Growth after 24 hours 08/31/21 12:02 Blood Culture - Preliminary Blood No Growth after 24 hours Assessment and Plan Plan: Recurrent urinary tract infection with history of ESBL Urine cultures pending D/w ID, will continue invanz for now. Awaiting cultures. Urine retention Has a mueller now. Urology consulted, there is no good options for treatment for urinary retention. Daughter has to choose between straight cath and long-term mueller History of hypertension Coronary Artery Disease (CAD), Hyperlipidemia Osteoporosis All stable Resume meds Anticipated discharge once urine cx are back in the next 24 hours. Dispo: likely home
[2021-09-02] MEDS: SODIUM CHLORIDE 0.9% 1,000 ML IV SCH ×2 (17:47→19:33)
[2021-09-02] MEDS ORDERED: ACETAMINOPHEN TAB 325 MG TAB PO PRN (19:18)
--- NOTE | 2021-09-02 23:31 | P.PN ---
Subjective Progress Note Date: 09/01/21 Principal diagnosis: Urinary tract infection Patient is 85-year-old female with a past medical history significant for dementia and recurrent urinary tract infection has been brought to the hospital for some mental status changes and concerning for possible UTI. On today's evaluation that is 09/01/2021, the patient is afebrile, the patient is feeling better and was to go home denies having any chest pain or shortness of breath or cough no abdominal pain no diarrhea Objective - Vital Signs Vital signs: Vital Signs Temp 98.8 F 09/01/21 04:43 Pulse 72 09/01/21 04:43 Resp 16 09/01/21 04:43 BP 147/75 09/01/21 04:43 Pulse Ox 90 L 09/01/21 04:43 FiO2 21 08/31/21 20:20 Intake & Output 08/31/21 09/01/21 09/01/21 18:59 06:59 18:59 Intake Total 600 900 Output Total 850 Balance 600 50 Weight 54.8 kg Intake: IV 600 900 Sodium Chloride 0.9% 1, 600 900 000 ml @ 75 mls/hr IV . [id number] [facility] Rx#:[id number] Output: Urine 850 Other: Voiding Method Indwelling Catheter # Bowel Movements 1 - Exam GENERAL DESCRIPTION: An elderly female lying in bed in no distress RESPIRATORY SYSTEM: Unlabored breathing , decreased breath sounds at bases HEART: S1 S2 regular rate and rhythm , ABDOMEN: Soft , no tenderness EXTREMITIES: No edema feet - Labs CBC & Chem 7: 09/01/21 12:00 09/01/21 12:00 Labs: Microbiology - Last 24 Hours (Table) 08/31/21 09:19 Urine Culture - Preliminary Urine,Catheterized Assessment and Plan (1) Urinary tract infection Current Visit: Yes Status: Acute Code(s): N39.0 - URINARY TRACT INFECTION, SITE NOT SPECIFIED SNOMED Code(s): 61679398 Plan: 1patient presented to hospital with confusion which is multifactorial in this patient with underlying dementia patient did have mildly positive UA however had no urinary symptoms patient did not have any fever or elevated white count, 2patient with multiple antibiotic allergies that would limit the number of antibiotics safe to use 3patient may continue with Invanz 1 g daily while waiting for the culture to finalize, however will recommend only 3 day course of antibiotic for possible cystitis Time with Patient: Less than 30
--- NOTE | 2021-09-02 23:33 | P.PN ---
Subjective Progress Note Date: 09/02/21 Principal diagnosis: Urinary tract infection Patient is 85-year-old female with a past medical history significant for dementia and recurrent urinary tract infection has been brought to the hospital for some mental status changes and concerning for possible UTI. Patirobb melara did have urinary retention requiring Davila catheter placement On today's evaluation that is 09/02/2021, the patient remains to be afebrile, the patient denies having any chest pain or shortness of breath or cough no abdominal pain no diarrhea Objective - Vital Signs Vital signs: Vital Signs Temp 98.2 F 09/02/21 13:00 Pulse 65 09/02/21 13:00 Resp 16 09/02/21 13:00 BP 125/71 09/02/21 13:00 Pulse Ox 94 L 09/02/21 13:00 FiO2 21 09/02/21 07:31 Intake & Output 09/01/21 09/02/21 09/02/21 18:59 06:59 18:59 Intake Total 950 900 Output Total 800 550 Balance 950 100 -550 Intake: IV 900 900 Sodium Chloride 0.9% 1, 900 900 000 ml @ 75 mls/hr IV . [id number] [facility] Rx#:[id number] Intake, IV Titration 50 Amount Ertapenem 1 gm In Sodium 50 Chloride 0.9% 50 ml @ 100 mls/hr IVPB DAILY [facility] Rx #:[id number] Output: Urine 800 550 Other: Voiding Method Indwelling Catheter Indwelling Catheter Indwelling Catheter # Bowel Movements 1 - Exam GENERAL DESCRIPTION: An elderly female lying in bed in no distress RESPIRATORY SYSTEM: Unlabored breathing , decreased breath sounds at bases HEART: S1 S2 regular rate and rhythm , ABDOMEN: Soft , no tenderness EXTREMITIES: No edema feet - Labs CBC & Chem 7: 09/01/21 12:00 09/01/21 12:00 Labs: Microbiology - Last 24 Hours (Table) 08/31/21 12:12 Blood Culture - Preliminary Blood No Growth after 24 hours 08/31/21 12:02 Blood Culture - Preliminary Blood No Growth after 24 hours Assessment and Plan (1) Urinary tract infection Current Visit: Yes Status: Acute Code(s): N39.0 - URINARY TRACT INFECTION, SITE NOT SPECIFIED SNOMED Code(s): 11901550 Plan: 1patient presented to hospital with confusion which is multifactorial in this patient with underlying dementia patient did have mildly positive UA however had no urinary symptoms patient did not have any fever or elevated white count, 2patient to continue with Invanz 1 g daily while waiting for the culture to finalize, however will recommend only 3 day course of antibiotic for possible cystitis, and this was explained in detail to the patient daughter who has been at the bedside she did have multiple questions about recurrent UTI and to prevent this and those were explained to her in layman terms Time with Patient: Less than 30
[2021-09-03 05:37] LABS: Appearance,Urine Clear (Clear); Bacteria,Urine Rare /hpf; Bilirubin,Urine Negative (Negative); Blood,Urine Negative (Negative); Budding Yeast,Urine Occasional /hpf; Color,Urine Yellow; Glucose,Urine (UA) Negative (Negative); Hyaline Casts,Urine 5 /lpf (0-2); Ketones,Urine Negative (Negative); Leukocyte Esterase,Urine Small (Negative); Mucus,Urine Occasional /hpf; Nitrite,Urine Negative (Negative); Protein,Urine Trace (Negative); RBC,Urine 2 /hpf (0-5); Specific Gravity,Urine 1.021 (1.001-1.035); Squamous Epithelial Cell,Urine <1 /hpf (0-4); WBC,Urine 15 /hpf (0-5)
[2021-09-03] MEDS: MEMANTINE 10 MG TAB PO SCH (07:30)
[2021-09-03] MEDS: cycloSPORINE 0.05% OPHTH 0.4 ML DROPERETTE BOTH EYES SCH (07:30)
[2021-09-03] MEDS: DONEPEZIL 10 MG TAB PO SCH (07:30)
[2021-09-03 09:06] LABS: Basophils # (A) 0.06 X 10*3/uL (0.00-0.10); Eosinophils # (A) 0.65 X 10*3/uL (0.04-0.35); Eosinophils % (A) 10.3 %; HCT 34.3 % (37.2-46.3); HGB 10.3 g/dL (12.0-15.0); Immature Grans, Automated 0.3 %; Lymphocytes # (A) 0.74 X 10*3/uL (0.90-5.00); Lymphocytes % (A) 11.7 %; MCH 26.4 pg (27.0-32.0); MCV 87.9 fL (80.0-97.0); Mean Platelet Volume 11.3 fL (9.5-12.2); Monocytes # (A) 0.67 X 10*3/uL (0.20-1.00); Monocytes % (A) 10.6 %; NRBC Per 100 WBC 0 /100 WBCS (0.0-0.0); Neutrophils # (A) 4.16 X 10*3/uL (1.80-7.70); Neutrophils % (A) 66.1 %; Platelet Count 163 X 10*3/uL (140-440)
[2021-09-03 09:22] LABS: African American GFR (CKD) 92.2 (60.0-200.0); Anion Gap 7.5 mmol/L (10.00-18.00); BUN/Creat Ratio 16.14 Ratio (12.00-20.00); Blood Urea Nitrogen 11.3 mg/dL (9.0-27.0); C Reactive Protein 6.1 mg/dL (0.00-0.80); Calcium 8.7 mg/dL (8.7-10.3); Carbon Dioxide 25.5 mmol/L (20.0-27.5); Non-African American GFR(CKD) 79.6 (60.0-200.0); Potassium 3.6 mmol/L (3.5-5.5)
--- NOTE | 2021-09-03 11:37 | P.DS ---
Providers Date of admission: 08/31/21 11:03 Expected date of discharge: 09/03/21 Attending physician: Sammie Bautista MD Consults: 08/31/21 11:02 Consult Physician Urgent Consulting Provider: Dionicio Bustillos Consult Reason/Comments: ESBL UTI Do you want consulting provider notified?: Yes 09/01/21 14:14 Consult Physician Routine Consulting Provider: Josh Vogel Consult Reason/Comments: urine retention Do you want consulting provider notified?: Yes 09/01/21 18:04 Consult Physician Urgent Consulting Provider: Jesus Gudino Consult Reason/Comments: chest pain Do you want consulting provider notified?: Yes Primary care physician: Shawna Pearson MD Hospital Course: 85 female with hx of dementia presents emergency department via EMS with chief complaint of increasing confusion, weakness, diaphoresis and profuse sweats this morning. No fevers. Her daughter had to force her to eat and drink as she did not want to. Patient was recently hospitalized for ESBL urinary tract infection. There are states that she was doing greatly improved at home but after 2 days of finishing treatment she started having worsening symptoms, similar to her last event. She was treated with Invanz for 10 days. Patient was being followed by Dr. Bustillos but she did not get to see him in the office yet. No other associated symptoms including nausea, vomiting, pain, fevers, diarrhea. Evaluation in the emergency department showed mild hypokalemia with K of 3.3, urinalysis was positive for pyuria. She was admitted for further evaluation and management. Patient was treated for this recurrent urinary tract infection with invanz again just like last time. During the hospitalization patient was retaining urine, had to be straight cathed twice initially and then a Davila catheter was inserted because of the recurrent urinary retention. For that she was seen by urology who stated that there is no reduction in the management of this patient she might either do a straight cath every 4-6 hours versus leaving a Davila in. In addition patient had a questionable episode of chest pain during the hospitalization, she was seen by cardiology who dismissed that possibility. No further workup was deemed necessary by cardiology. Urine cx eventually grew VRE. She was started on dapto by ID. Given a total of 2 doses of that. She will be discharged on zyvox according to ID recommendtations. I told her daughter that it is best for her comfort to just leave the Davila in despite having increased risk of infections. I told her that if urinary tract infections keep coming back then it might be a good idea to consider switching to hospice care. Time for discharge 35 min Patient Condition at Discharge: Fair Plan - Discharge Summary New Discharge Prescriptions: New Linezolid [Zyvox] 600 mg PO Q12H 3 Days #6 tab Continue Donepezil HCl [Aricept] 10 mg PO DAILY cloNIDine HCL [Catapres] 0.1 mg PO DAILY PRN PRN Reason: Blood Pressure - High Memantine HCl [Memantine HCl ER] 28 mg PO DAILY cycloSPORINE 0.05% OPHTH SOLN [Restasis] 0.5 ampul BOTH EYES Q12H Discharge Medication List Donepezil HCl [Aricept] 10 mg PO DAILY 01/07/21 [History] Memantine HCl [Memantine HCl ER] 28 mg PO DAILY 01/07/21 [History] cloNIDine HCL [Catapres] 0.1 mg PO DAILY PRN 08/11/21 [History] cycloSPORINE 0.05% OPHTH SOLN [Restasis] 0.5 ampul BOTH EYES Q12H 08/11/21 [History] Linezolid [Zyvox] 600 mg PO Q12H 3 Days #6 tab 09/03/21 [Rx] Follow up Appointment(s)/Referral(s): [facility], [NON-STAFF] - 1 Week Care,[facility] [NON-STAFF] - 1 Week Shanwa Pearson MD [Primary Care Provider] - 1-2 days Activity/Diet/Wound Care/Special Instructions: please do not make follow up appt for pt - pt daughter will make the appts
[2021-09-03 13:13] VITALS: BP 177/73; PULSE 58; RESP 16; TEMP 98.1
== END 2021-09-03 13:05 | disposition home health service (06) | DRG 690 ==
LOC: EC 08:07 → 5NMEDONC 11:03
PROVIDERS: ADMIT Internal Medicine; ATTEND Internal Medicine
DX: N39.0 Urinary tract infection, site not specified (principal); Z16.12 Extended spectrum beta lactamase (ESBL) resistance; E78.5 Hyperlipidemia, unspecified; E86.0 Dehydration; E87.6 Hypokalemia; I25.10 Atherosclerotic heart disease of native coronary artery without angina pectoris; I10 Essential (primary) hypertension; I08.0 Rheumatic disorders of both mitral and aortic valves; I65.29 Occlusion and stenosis of unspecified carotid artery; F03.90 Unspecified dementia, unspecified severity, without behavioral disturbance, psychotic disturbance, mood disturbance, and anxiety; M81.0 Age-related osteoporosis without current pathological fracture; N28.1 Cyst of kidney, acquired; R33.9 Retention of urine, unspecified; Z98.42 Cataract extraction status, left eye; Z98.41 Cataract extraction status, right eye; Z88.1 Allergy status to other antibiotic agents; Z88.2 Allergy status to sulfonamides; Z88.8 Allergy status to other drugs, medicaments and biological substances; Z95.1 Presence of aortocoronary bypass graft; Z79.899 Other long term (current) drug therapy; Z87.440 Personal history of urinary (tract) infections; Z86.711 Personal history of pulmonary embolism; Z82.49 Family history of ischemic heart disease and other diseases of the circulatory system; Z80.1 Family history of malignant neoplasm of trachea, bronchus and lung
CPT/HCPCS: 36415; 71046; 76770; 80048; 80053; 81001; 82140; 83605; 84484; 85025; 85610; 85730; 86140; 87040; 87077; 87086; 87186; 93005; 94760; 96365; 99285

== ENCOUNTER 2021-10-05 08:42 | Inpatient (IN) | payer MEDICARE, BC ==
[2021-10-05] MEDS ORDERED: SODIUM CHLORIDE 0.9% 1,000 ML IV STA (08:48)
[2021-10-05] MEDS ORDERED: SODIUM CHLORIDE 0.9% 500 ML 500 ML IV STA (08:48)
--- NOTE | 2021-10-05 08:53 | ED ---
Female Urogenital HPI - General Chief complaint: Urogenital Stated complaint: UTI Time Seen by Provider: 10/05/21 08:42 Source: patient, EMS, RN notes reviewed Mode of arrival: EMS Limitations: no limitations - History of Present Illness Initial comments: 84-year-old female who is bedbound with a chronic indwelling Davila catheter history of UTIs who was brought in today with complaints of fever for last several days and family is concerned about a urinary tract infection. Apparently in the past the patient's had unsuccessful outpatient treatment of the UTIs. She denies any complaints of pain shoulder sweats. MD Complaint: other - Related Data Home Medications Medication Instructions Recorded Confirmed Donepezil HCl [Aricept] 10 mg PO DAILY 01/07/21 08/31/21 Memantine HCl [Memantine HCl ER] 28 mg PO DAILY 01/07/21 08/31/21 cloNIDine HCL [Catapres] 0.1 mg PO DAILY PRN 08/11/21 08/31/21 cycloSPORINE 0.05% OPHTH SOLN 0.5 ampul BOTH EYES Q12H 08/11/21 08/31/21 [Restasis] Previous Rx's Medication Instructions Recorded Linezolid [Zyvox] 600 mg PO Q12H 3 Days #6 tab 09/03/21 Allergies Allergy/AdvReac Type Severity Reaction Status Date / Time Sulfa (Sulfonamide Allergy Unknown Verified 10/05/21 08:49 Antibiotics) doxycycline AdvReac Rash/Hives Verified 10/05/21 08:49 nitrofurantoin AdvReac fainting Verified 10/05/21 08:49 [From Macrobid] Review of Systems ROS Statement: Those systems with pertinent positive or pertinent negative responses have been documented in the HPI. ROS Other: All systems not noted in ROS Statement are negative. Past Medical History Past Medical History: Coronary Artery Disease (CAD), Hyperlipidemia, Pulmonary Embolus (PE) Additional Past Medical History / Comment(s): SEE DR BAUER'S H&P,FREQ DIZZINESS,FREQ UTI'S, urinary retention -self caths, constipation, shingles 10 years ago, osteoporosis History of Any Multi-Drug Resistant Organisms: CRE, ESBL Date of last positivie culture/infection: 08/11/21 ESBL E.coli MDRO Source:: Urine-ESBL and MDRO CRE Past Surgical History: Back Surgery, Coronary Bypass/CABG, Orthopedic Surgery, Tonsillectomy Additional Past Surgical History / Comment(s): PAIN CLINIC PROCEDURES,CABG 2 VESSEL 2004, maxwell cataracts,rt rotator cuff, rt hip/donna in place,"implanted monitor to monitor any cardic changes that could explain her syncopal episodes" Past Anesthesia/Blood Transfusion Reactions: Motion Sickness Past Psychological History: No Psychological Hx Reported Smoking Status: Never smoker Past Alcohol Use History: None Reported Past Drug Use History: None Reported - Past Family History Mother Family Medical History: Cancer Additional Family Medical History / Comment(s): LUNG cancer Father Family Medical History: Myocardial Infarction ([place]) Additional Family Medical History / Comment(s): hardening of the arteries General Exam - General Exam Comments Initial Comments: This is a well-developed frail-appearing female who is awake alert oriented 4 Limitations: no limitations General appearance: alert, in no apparent distress Head exam: Present: atraumatic, normocephalic, normal inspection Eye exam: Present: normal appearance, PERRL, EOMI. Absent: scleral icterus, conjunctival injection, periorbital swelling ENT exam: Present: mucous membranes dry Neck exam: Present: normal inspection, full ROM, other (No stridor JVD or bruits). Absent: tenderness, meningismus, lymphadenopathy Respiratory exam: Present: decreased breath sounds. Absent: respiratory distress, wheezes, rales, rhonchi, stridor Cardiovascular Exam: Present: regular rate, normal rhythm, normal heart sounds. Absent: systolic murmur, diastolic murmur, rubs, gallop, clicks GI/Abdominal exam: Present: soft, normal bowel sounds. Absent: distended, tenderness, guarding, rebound, rigid Extremities exam: Present: normal inspection, full ROM, normal capillary refill. Absent: tenderness, pedal edema, joint swelling, calf tenderness Back exam: Present: normal inspection Neurological exam: Present: alert, oriented X3, CN II-XII intact Psychiatric exam: Present: normal affect, normal mood Skin exam: Present: warm, dry, intact, normal color. Absent: rash Course Vital Signs 10/05/21 10/05/21 10/05/21 08:43 10:24 12:00 Temperature 98.3 F Pulse Rate 70 63 74 Respiratory 18 18 18 Rate Blood Pressure 136/81 150/68 144/65 O2 Sat by Pulse 95 96 94 L Oximetry Medical Decision Making - Medical Decision Making I did discuss findings with patient family also with Dr. Newman. The patient will be admitted with IV antibiotics IV hydration - Lab Data Result diagrams: 10/05/21 09:09 10/05/21 09:09 Lab Results 10/05/21 10/05/21 10/05/21 Range/Units 09:09 09:09 09:09 WBC 7.3 (3.8-10.6) k/uL RBC 4.60 (3.80-5.40) m/uL Hgb 12.9 (11.4-16.0) gm/dL Hct 40.2 (34.0-46.0) % MCV 87.4 (80.0-100.0) fL MCH 28.0 (25.0-35.0) pg MCHC 32.0 (31.0-37.0) g/dL RDW 17.6 H (11.5-15.5) % Plt Count 253 (150-450) k/uL MPV 9.1 Neutrophils % 72 % Lymphocytes % 15 % Monocytes % 6 % Eosinophils % 5 % Basophils % 1 % Neutrophils # 5.2 (1.3-7.7) k/uL Lymphocytes # 1.1 (1.0-4.8) k/uL Monocytes # 0.5 (0-1.0) k/uL Eosinophils # 0.3 (0-0.7) k/uL Basophils # 0.1 (0-0.2) k/uL Hypochromasia Moderate Anisocytosis Slight Sodium 140 (137-145) mmol/L Potassium 3.8 (3.5-5.1) mmol/L Chloride 105 (98-107) mmol/L Carbon Dioxide 32 H (22-30) mmol/L Anion Gap 3 mmol/L BUN 21 H (7-17) mg/dL Creatinine 0.80 (0.52-1.04) mg/dL Est GFR (CKD-EPI)AfAm 79 (>60 ml/min/1.73 sqM) Est GFR (CKD-EPI)NonAf 68 (>60 ml/min/1.73 sqM) Glucose 101 H (74-99) mg/dL Plasma Lactic Acid Paul (0.7-2.0) mmol/L Calcium 9.8 (8.4-10.2) mg/dL Total Bilirubin 0.8 (0.2-1.3) mg/dL AST 18 (14-36) U/L ALT 8 (4-34) U/L Alkaline Phosphatase 65 (38-126) U/L Creatine Kinase <20 L (30-135) U/L Total Protein 6.8 (6.3-8.2) g/dL Albumin 3.8 (3.5-5.0) g/dL Urine Color Light Yellow Urine Appearance Cloudy H (Clear) Urine pH 6.5 (5.0-8.0) Ur Specific [place] 1.012 (1.001-1.035) Urine Protein Negative (Negative) Urine Glucose (UA) Negative (Negative) Urine Ketones Negative (Negative) Urine Blood Negative (Negative) Urine Nitrite Positive H (Negative) Urine Bilirubin Negative (Negative) Urine Urobilinogen <2.0 (<2.0) mg/dL Ur Leukocyte Esterase Large H (Negative) Urine RBC 3 (0-5) /hpf Urine WBC 113 H (0-5) /hpf Urine WBC Clumps Occasional H (None) /hpf Urine Bacteria Moderate H (None) /hpf Urine Mucus Rare H (None) /hpf // Range/Units 09:09 WBC (3.8-10.6) k/uL RBC (3.80-5.40) m/uL Hgb (11.4-16.0) gm/dL Hct (34.0-46.0) % MCV (80.0-100.0) fL MCH (25.0-35.0) pg MCHC (31.0-37.0) g/dL RDW (11.5-15.5) % Plt Count (150-450) k/uL MPV Neutrophils % % Lymphocytes % % Monocytes % % Eosinophils % % Basophils % % Neutrophils # (1.3-7.7) k/uL Lymphocytes # (1.0-4.8) k/uL Monocytes # (0-1.0) k/uL Eosinophils # (0-0.7) k/uL Basophils # (0-0.2) k/uL Hypochromasia Anisocytosis Sodium (137-145) mmol/L Potassium (3.5-5.1) mmol/L Chloride (98-107) mmol/L Carbon Dioxide (22-30) mmol/L Anion Gap mmol/L BUN (7-17) mg/dL Creatinine (0.52-1.04) mg/dL Est GFR (CKD-EPI)AfAm (>60 ml/min/1.73 sqM) Est GFR (CKD-EPI)NonAf (>60 ml/min/1.73 sqM) Glucose (74-99) mg/dL Plasma Lactic Acid Paul 1.1 (0.7-2.0) mmol/L Calcium (8.4-10.2) mg/dL Total Bilirubin (0.2-1.3) mg/dL AST (14-36) U/L ALT (4-34) U/L Alkaline Phosphatase (38-126) U/L Creatine Kinase (30-135) U/L Total Protein (6.3-8.2) g/dL Albumin (3.5-5.0) g/dL Urine Color Urine Appearance (Clear) Urine pH (5.0-8.0) Ur Specific [place] (1.001-1.035) Urine Protein (Negative) Urine Glucose (UA) (Negative) Urine Ketones (Negative) Urine Blood (Negative) Urine Nitrite (Negative) Urine Bilirubin (Negative) Urine Urobilinogen (<2.0) mg/dL Ur Leukocyte Esterase (Negative) Urine RBC (0-5) /hpf Urine WBC (0-5) /hpf Urine WBC Clumps (None) /hpf Urine Bacteria (None) /hpf Urine Mucus (None) /hpf - Radiology Data Radiology results: report reviewed (Imaging reviewed no acute findings), image reviewed Disposition Clinical Impression: Urinary tract infection, Dehydration, Failure to thrive in adult Disposition: ADMITTED IP TO THIS [facility] Condition: Fair Referrals: Shawna Pearson MD [Primary Care Provider] - 1-2 days Decision Date: 10/05/21 Decision Time: 13:00
[2021-10-05 09:31] LABS: ALT 8 U/L (4-34); AST 18 U/L (14-36); African American GFR (CKD) 79 (>60 ml/min/1.73 sqM); Albumin 3.8 g/dL (3.5-5.0); Alkaline Phosphatase 65 U/L (38-126); Anion Gap 3 mmol/L; Blood Urea Nitrogen 21 mg/dL (7-17); Calcium 9.8 mg/dL (8.4-10.2); Carbon Dioxide 32 mmol/L (22-30); Chloride 105 mmol/L (98-107); Creatine Kinase <20 U/L (30-135); Glucose 101 mg/dL (74-99); Non-African American GFR(CKD) 68 (>60 ml/min/1.73 sqM); Potassium 3.8 mmol/L (3.5-5.1); Sodium 140 mmol/L (137-145); Total Bilirubin 0.8 mg/dL (0.2-1.3); Total Protein 6.8 g/dL (6.3-8.2)
[2021-10-05 09:38] LABS: Appearance,Urine Cloudy (Clear); Bacteria,Urine Moderate /hpf; Bilirubin,Urine Negative (Negative); Blood,Urine Negative (Negative); Color,Urine Light Yellow; Glucose,Urine (UA) Negative (Negative); Ketones,Urine Negative (Negative); Leukocyte Esterase,Urine Large (Negative); Mucus,Urine Rare /hpf; Nitrite,Urine Positive (Negative); PH, Urine 6.5 (5.0-8.0); Protein,Urine Negative (Negative); RBC,Urine 3 /hpf (0-5); Specific Gravity,Urine 1.012 (1.001-1.035); Urobilinogen,Urine <2.0 mg/dL (<2.0); WBC,Urine 113 /hpf (0-5)
[2021-10-05 09:47] LABS: Anisocytosis Slight; Basophils # (A) 0.1 k/uL (0-0.2); Basophils % (A) 1 %; Eosinophils # (A) 0.3 k/uL (0-0.7); Eosinophils % (A) 5 %; HCT 40.2 % (34.0-46.0); HGB 12.9 gm/dL (11.4-16.0); Hypochromasia Moderate; Lymphocytes # (A) 1.1 k/uL (1.0-4.8); Lymphocytes % (A) 15 %; MCV 87.4 fL (80.0-100.0); Mean Platelet Volume 9.1; Monocytes # (A) 0.5 k/uL (0-1.0); Monocytes % (A) 6 %; Neutrophils # (A) 5.2 k/uL (1.3-7.7); Neutrophils % (A) 72 %; Platelet Count 253 k/uL (150-450); RDW 17.6 % (11.5-15.5); WBC 7.3 k/uL (3.8-10.6)
--- NOTE | 2021-10-05 09:51 | XR ---
EXAMINATION TYPE: XR chest 2V DATE OF EXAM: 10/05/2021 COMPARISON: 08/31/2021 TECHNIQUE: PA and lateral views submitted. HISTORY: Fever FINDINGS: The lungs are clear and there is no pneumothorax, pleural effusion, or focal pneumonia. Curvature of the spine with postsurgical changes. Arthropathy of the shoulders with diffuse osteopenia. Mildly co arsened interstitium with subsegmental changes at the left lung base. IMPRESSION: 1. Left basilar atelectasis favored over pneumonia correlate clinically. 2. Coarsened interstitium may be related to reduced inspiration rather than bronchitis, interstitial pneumonitis or chronic interstitial lung disease. Correlate clinically.
[2021-10-05] MEDS ORDERED: PIPERACILLIN-TAZOBACTAM 3.375 GM in SODIUM CHLORIDE 0.9% 100 ML IVPB STA (13:27)
[2021-10-05] MEDS ORDERED: NALOXONE 0.4 MG/ML 1 ML VIAL IV PRN (13:30)
--- NOTE | 2021-10-05 14:09 | P.HPIM ---
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 Apparently, patient's symptoms started on 09/26 with increased lethargy, loss of appetite, cloudy urine seen in the Mueller catheter bag by her family members. Subsequently, patient was taken and on 09/28 to obtain a urine culture and urinalysis. Results from this test came back positive for ESBL E. coli couple days ago. Patient continues to have poor appetite, fatigue and is unable to move from bed. Family suspected the patient has recurrence of urinary tract infection, and therefore brought patient to the hospital for further evaluation. Patient has dementia and does not participate in review of systems. In the emergency room, patient is afebrile, 136/81, heart rate 70, 95% on room air. CBC is negative for leukocytosis. Chemistries show contractional alkalosis with carbon dioxide of 32, otherwise unremarkable. LFTs are unremarkable. CK is less than 20. UA is significant for cloudy appearance, p ositive nitrites, large leukocyte esterase, 113 white blood cells, white blood cell comes, bacteria, mucus. Chest x-ray is negative for acute cardiopulmonary process but shows a coarsened interstitium related to reduced inspiration. Review of systems as above Gen: in no apparent distress, resting comfortably in bed Eyes: PERRL, no scleral injection or icterus HENT: normocephalic, atraumatic, good hearing acuity, dry mucous membranes Neck: no tracheal deviation, full range of motion Resp: good air exchange, breathing comfortably with no accessory muscle use, no tactile fremitus CVS: good distal perfusion x 4, no pitting edema GI: soft, NTTP, ND, no hepatosplenomegaly : +suprapubic tenderness, no CVAT, mueller catheter is present MSK: no clubbing, no cyanosis, no noted contractures of extremities Skin: no noted rashes, petechiae; temperature of skin is appropriate Neuro: moving all extremities without signs of weakness, CN II-XII intact Psych: cooperative, euthymic mood Labs and imaging reviewed as above Assessment/plan: ESBL urinary tract infection related to chronic indwelling Mueller catheter, present on admission -Admit inpatient, telemetry -ID consult -Mueller catheter should be exchange on 10/06 -Urine culture -Blood culture -Start ertapenem -IV fluids Dementia Urinary retention Bedbound -Patient's family requesting a urology consult, specifically, Dr. Baxter -Palliative consult -Remaining home medications reconciled Patient is DO NOT RESUSCITATE/DO NOT INTUBATE DVT prophylaxis with heparin 3 times a day Past Medical History Past Medical History: Coronary Artery Disease (CAD), Hyperlipidemia, Pulmonary Embolus (PE) Additional Past Medical History / Comment(s): SEE DR BAUER'S H&P,FREQ DIZZINESS,FREQ UTI'S, urinary retention -self caths, constipation, shingles 10 years ago, osteoporosis History of Any Multi-Drug Resistant Organisms: CRE, ESBL Date of last positivie culture/infection: 08/11/21 ESBL E.coli MDRO Source:: Urine-ESBL and MDRO CRE Past Surgical History: Back Surgery, Coronary Bypass/CABG, Orthopedic Surgery, Tonsillectomy Additional Past Surgical History / Comment(s): PAIN CLINIC PROCEDURES,CABG 2 VESSEL 2004, maxwell cataracts,rt rotator cuff, rt hip/dnona in place,"implanted monitor to monitor any cardic changes that could explain her syncopal episodes" Past Anesthesia/Blood Transfusion Reactions: Motion Sickness Past Psychological History: No Psychological Hx Reported Smoking Status: Never smoker Past Alcohol Use History: None Reported Past Drug Use History: None Reported - Past Family History Mother Family Medical History: Cancer Additional Family Medical History / Comment(s): LUNG cancer Father Family Medical History: Myocardial Infarction ([place]) Additional Family Medical History / Comment(s): hardening of the arteries Medications and Allergies Home Medications Medication Instructions Recorded Confirmed Type Donepezil HCl [Aricept] 10 mg PO DAILY 01/07/21 10/05/21 History Memantine HCl [Memantine HCl ER] 28 mg PO DAILY 01/07/21 10/05/21 History cycloSPORINE 0.05% OPHTH SOLN 0.5 ampul BOTH EYES Q12H 08/11/21 10/05/21 History [Restasis] Allergies Allergy/AdvReac Type Severity Reaction Status Date / Time Sulfa (Sulfonamide Allergy Unknown Verified 10/05/21 13:42 Antibiotics) doxycycline AdvReac Rash/Hives Verified 10/05/21 13:42 nitrofurantoin AdvReac fainting Verified 10/05/21 13:42 [From Macrobid] Physical Exam Osteopathic Statement: *. No significant issues noted on an osteopathic structural exam other than those noted in the History and Physical/Consult. Vitals: Vital Signs Temp Pulse Resp BP Pulse Ox 10/05/21 12:00 74 18 144/65 94 L 10/05/21 10:24 63 18 150/68 96 10/05/21 08:43 98.3 F 70 18 136/81 95 Intake and Output 10/04/21 10/05/21 10/05/21 22:59 06:59 14:59 Other: Voiding Method Indwelling Catheter Weight 61.235 kg Results CBC & Chem 7: 10/05/21 09:09 10/05/21 09:09 Labs: Abnormal Lab Results - Last 24 Hours (Table) 10/05/21 10/05/21 10/05/21 Range/Units 09:09 09:09 09:09 RDW 17.6 H (11.5-15.5) % Carbon Dioxide 32 H (22-30) mmol/L BUN 21 H (7-17) mg/dL Glucose 101 H (74-99) mg/dL Creatine Kinase <20 L (30-135) U/L Urine Appearance Cloudy H (Clear) Urine Nitrite Positive H (Negative) Ur Leukocyte Esterase Large H (Negative) Urine WBC 113 H (0-5) /hpf Urine WBC Clumps Occasional H (None) /hpf Urine Bacteria Moderate H (None) /hpf Urine Mucus Rare H (None) /hpf
[2021-10-05] MEDS: SODIUM CHLORIDE 0.9% 1,000 ML IV SCH (14:16)
[2021-10-05] MEDS: ERTAPENEM 1 GM in SODIUM CHLORIDE 0.9% 50 ML IVPB SCH (15:12)
[2021-10-05] MEDS: HEPARIN SODIUM,PORCINE/PF 5,000 UNIT/0.5 ML SYRINGE SQ SCH ×2 (16:58→23:28)
[2021-10-05] MEDS: cycloSPORINE 0.05% OPHTH 0.4 ML DROPERETTE BOTH EYES SCH (21:48)
[2021-10-06] MEDS ORDERED: PIPERACILLIN-TAZOBACTAM 3.375 GM in SODIUM CHLORIDE 0.9% 100 ML IVPB SCH ×2
[2021-10-06] MEDS: SODIUM CHLORIDE 0.9% 1,000 ML IV SCH ×2 (04:28→07:43)
[2021-10-06 05:25] LABS: Appearance,Urine Cloudy (Clear); Bacteria,Urine Rare /hpf; Bilirubin,Urine Negative (Negative); Blood,Urine Negative (Negative); Color,Urine Light Yellow; Glucose,Urine (UA) Negative (Negative); Ketones,Urine Negative (Negative); Leukocyte Esterase,Urine Large (Negative); Mucus,Urine Rare /hpf; Nitrite,Urine Negative (Negative); Protein,Urine Trace (Negative); RBC,Urine 2 /hpf (0-5); Specific Gravity,Urine 1.017 (1.001-1.035); Squamous Epithelial Cell,Urine 1 /hpf (0-4); Transitional Epi Cells,Urine <1 /hpf (0-1); Urobilinogen,Urine <2.0 mg/dL (<2.0); WBC,Urine 65 /hpf (0-5)
[2021-10-06] MEDS: ERTAPENEM 1 GM in SODIUM CHLORIDE 0.9% 50 ML IVPB SCH (07:42)
[2021-10-06] MEDS: HEPARIN SODIUM,PORCINE/PF 5,000 UNIT/0.5 ML SYRINGE SQ SCH ×3 (07:43→23:30)
[2021-10-06] MEDS: MEMANTINE 10 MG TAB PO SCH ×2 (07:44→21:16)
[2021-10-06] MEDS: cycloSPORINE 0.05% OPHTH 0.4 ML DROPERETTE BOTH EYES SCH ×2 (07:44→21:16)
[2021-10-06] MEDS: DONEPEZIL 10 MG TAB PO SCH (07:44)
--- NOTE | 2021-10-06 10:25 | P.GSCN ---
History of Present Illness Consult date: 10/06/21 Reason for Consult: Urinary retention, UTI Requesting physician: Majo Newman History of present illness: The patient is an 85-year-old white female with a history of dementia. She underwent an epidural injection in 2003, resulting in urinary retention. She performed intermittent self-catheterization following that. She was last seen in our office in January 2018. At that time, the postvoid residual was 66 mL and she was advised to only perform intermittent self-catheterization as needed. She had bacteriuria at that time but was asymptomatic. She has been treated for recurrent UTIs. She was hospitalized earlier this year for treatment of an ESBL E. coli UTI. She received Invanz for 10 days. Unfortunately, her symptoms worsened 2 days after completing antibiotic therapy. She was readmitted last month. Renal ultrasound showed a right renal cyst and no evidence of hydronephrosis. The kidneys were incompletely visualized. Debris was seen within the bladder. Postvoid residuals were elevated, and catheterization volumes were 500 mL, 650 mL, and 950 mL. A Davila catheter was therefore placed. She has recently been noted to be lethargic with a poor appetite. Urine culture has again shown ESBL E. coli. She is currently receiving ertapenem and states that she feels fine at this time. The Davila catheter is draining clear yellow urine. Past Medical History Past Medical History: Coronary Artery Disease (CAD), Hyperlipidemia, Pulmonary Embolus (PE) Additional Past Medical History / Comment(s): SEE DR BAUER'S H&P,FREQ DIZZINESS,FREQ UTI'S, urinary retention -self caths, constipation, shingles 10 years ago, osteoporosis History of Any Multi-Drug Resistant Organisms: CRE, ESBL Year Discovered:: 09/28/21 - urine - MDRO CRE MDRO Source:: Urine-ESBL and MDRO CRE Past Surgical History: Back Surgery, Coronary Bypass/CABG, Orthopedic Surgery, Tonsillectomy Additional Past Surgical History / Comment(s): PAIN CLINIC PROCEDURES,CABG 2 VESSEL 2003, maxwell cataracts,rt rotator cuff, rt hip/donna in place,"implanted monitor to monitor any cardic changes that could explain her syncopal episodes" Past Anesthesia/Blood Transfusion Reactions: Motion Sickness Past Psychological History: No Psychological Hx Reported Additional Psychological History / Comment(s): pt is a , was 51 years. 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 pt had hip sx recently .has home care nurse once a week and pt 2 times a week. Smoking Status: Never smoker Past Alcohol Use History: None Reported Past Drug Use History: None Reported - Past Family History Mother Family Medical History: Cancer Additional Family Medical History / Comment(s): LUNG cancer Father Family Medical History: Myocardial Infarction ([place]) Additional Family Medical History / Comment(s): hardening of the arteries Medications and Allergies Home Medications Medication Instructions Recorded Confirmed Type Donepezil HCl [Aricept] 10 mg PO DAILY 01/07/21 10/05/21 History Memantine HCl [Memantine HCl ER] 28 mg PO DAILY 01/07/21 10/05/21 History cycloSPORINE 0.05% OPHTH SOLN 0.5 ampul BOTH EYES Q12H 08/11/21 10/05/21 History [Restasis] Allergies Allergy/AdvReac Type Severity Reaction Status Date / Time Sulfa (Sulfonamide Allergy Unknown Verified 10/05/21 13:42 Antibiotics) doxycycline AdvReac Rash/Hives Verified 10/05/21 13:42 nitrofurantoin AdvReac fainting Verified 10/05/21 13:42 [From Macrobid] Surgical - Exam Vital Signs Temp Pulse Resp BP Pulse Ox 98.3 F 70 18 136/81 95 10/05/21 08:43 10/05/21 08:43 10/05/21 08:43 10/05/21 08:43 10/05/21 08:43 - General well developed, well nourished, no distress - Respiratory normal respiratory effort - Abdomen Abdomen: soft, non tender, no guarding, no rigid, no rebound Results - Labs 10/05/21 09:09 10/05/21 09:09 Abnormal Lab Results - Last 24 Hours (Table) 10/05/21 10/05/21 10/05/21 Range/Units 09:09 09:09 09:09 RDW 17.6 H (11.5-15.5) % Carbon Dioxide 32 H (22-30) mmol/L BUN 21 H (7-17) mg/dL Glucose 101 H (74-99) mg/dL Creatine Kinase <20 L (30-135) U/L Urine Appearance Cloudy H (Clear) Urine Protein (Negative) Urine Nitrite Positive H (Negative) Ur Leukocyte Esterase Large H (Negative) Urine WBC 113 H (0-5) /hpf Urine WBC Clumps Occasional H (None) /hpf Urine Bacteria Moderate H (None) /hpf Urine Mucus Rare H (None) /hpf 10/06/21 Range/Units 04:42 RDW (11.5-15.5) % Carbon Dioxide (22-30) mmol/L BUN (7-17) mg/dL Glucose (74-99) mg/dL Creatine Kinase (30-135) U/L Urine Appearance Cloudy H (Clear) Urine Protein Trace H (Negative) Urine Nitrite (Negative) Ur Leukocyte Esterase Large H (Negative) Urine WBC 65 H (0-5) /hpf Urine WBC Clumps (None) /hpf Urine Bacteria Rare H (None) /hpf Urine Mucus Rare H (None) /hpf Microbiology - Last 24 Hours (Table) 10/05/21 09:09 Urine Culture - Preliminary Urine,Voided Diabetes panel 10/05/21 Range/Units 09:09 Sodium 140 (137-145) mmol/L Potassium 3.8 (3.5-5.1) mmol/L Chloride 105 (98-107) mmol/L Carbon Dioxide 32 H (22-30) mmol/L BUN 21 H (7-17) mg/dL Creatinine 0.80 (0.52-1.04) mg/dL Glucose 101 H (74-99) mg/dL Calcium 9.8 (8.4-10.2) mg/dL AST 18 (14-36) U/L ALT 8 (4-34) U/L Alkaline Phosphatase 65 (38-126) U/L Total Protein 6.8 (6.3-8.2) g/dL Albumin 3.8 (3.5-5.0) g/dL Calcium panel 10/05/21 Range/Units 09:09 Calcium 9.8 (8.4-10.2) mg/dL Albumin 3.8 (3.5-5.0) g/dL Pituitary panel 10/05/21 Range/Units 09:09 Sodium 140 (137-145) mmol/L Potassium 3.8 (3.5-5.1) mmol/L Chloride 105 (98-107) mmol/L Carbon Dioxide 32 H (22-30) mmol/L BUN 21 H (7-17) mg/dL Creatinine 0.80 (0.52-1.04) mg/dL Glucose 101 H (74-99) mg/dL Calcium 9.8 (8.4-10.2) mg/dL Adrenal panel 10/05/21 Range/Units 09:09 Sodium 140 (137-145) mmol/L Potassium 3.8 (3.5-5.1) mmol/L Chloride 105 (98-107) mmol/L Carbon Dioxide 32 H (22-30) mmol/L BUN 21 H (7-17) mg/dL Creatinine 0.80 (0.52-1.04) mg/dL Glucose 101 H (74-99) mg/dL Calcium 9.8 (8.4-10.2) mg/dL Total Bilirubin 0.8 (0.2-1.3) mg/dL AST 18 (14-36) U/L ALT 8 (4-34) U/L Alkaline Phosphatase 65 (38-126) U/L Total Protein 6.8 (6.3-8.2) g/dL Albumin 3.8 (3.5-5.0) g/dL Assessment and Plan Plan: Unfortunately, Mrs. Sanford is no longer capable of performing intermittent self-catheterization. She thus requires a chronic indwelling Davila catheter, and this of course predisposes her to recurrent UTIs. I am in agreement with changing her Davila catheter during this hospitalization.
[2021-10-06] MEDS: MEROPENEM 1 GM in SODIUM CHLORIDE 0.9% 100 ML IVPB SCH ×2 (12:15→23:29)
--- NOTE | 2021-10-06 12:16 | P.PN ---
Subjective Progress Note Date: 10/06/21 Patient is much more awake and interactive today. She says that she would like to try to sit in the chair today from her bed. Neurology consultation appreciated, pending ID consultation. Palliative care consultation appreciated. Plan is for 10 days of IV antibiotics for ESBL UTI which is recurrent. Gen: in no apparent distress, resting comfortably in bed Eyes: PERRL, no scleral injection or icterus HENT: normocephalic, atraumatic, good hearing acuity, dry mucous membranes Neck: no tracheal deviation, full range of motion Resp: good air exchange, breathing comfortably with no accessory muscle use, no tactile fremitus CVS: good distal perfusion x 4, no pitting edema GI: soft, NTTP, ND, no hepatosplenomegaly : +suprapubic tenderness, no CVAT, mueller catheter is present MSK: no clubbing, no cyanosis, no noted contractures of extremities Skin: no noted rashes, petechiae; temperature of skin is appropriate Neuro: moving all extremities without signs of weakness, CN II-XII intact Psych: cooperative, euthymic mood Assessment/plan: ESBL urinary tract infection related to chronic indwelling Mueller catheter, present on admission -Admit inpatient, telemetry -ID consult -Mueller catheter should be exchange on 10/06 -Urine culture pending -Blood culture pending -Start meropenem -IV fluids Dementia Urinary retention Bedbound -Patient's family requesting a urology consult, specifically, Dr. Baxter -Palliative consult -Remaining home medications reconciled Patient is DO NOT RESUSCITATE/DO NOT INTUBATE DVT prophylaxis with heparin 3 times a day Objective - Vital Signs Vital signs: Vital Signs Temp 98.1 F 10/06/21 04:57 Pulse 74 10/06/21 04:57 Resp 16 10/06/21 04:57 BP 159/72 10/06/21 04:57 Pulse Ox 94 L 10/06/21 04:57 FiO2 Intake & Output 10/05/21 10/06/21 10/06/21 18:59 06:59 18:59 Intake Total 675 Output Total 300 Balance 375 Weight 61.235 kg 61.235 kg Intake: Intake, IV Titration 675 Amount Sodium Chloride 0.9% 1, 675 000 ml @ 75 mls/hr IV . [id number] [facility] Rx#:[id number] Output: Urine 300 Other: Voiding Method Indwelling Catheter Indwelling Catheter Indwelling Catheter - Labs CBC & Chem 7: 10/05/21 09:09 10/05/21 09:09 Labs: Abnormal Lab Results - Last 24 Hours (Table) 10/06/21 Range/Units 04:42 Urine Appearance Cloudy H (Clear) Urine Protein Trace H (Negative) Ur Leukocyte Esterase Large H (Negative) Urine WBC 65 H (0-5) /hpf Urine Bacteria Rare H (None) /hpf Urine Mucus Rare H (None) /hpf Microbiology - Last 24 Hours (Table) 10/05/21 08:51 Blood Culture - Preliminary Blood No Growth after 24 hours 10/05/21 09:04 Blood Culture - Preliminary Blood No Growth after 24 hours 10/05/21 09:09 Urine Culture - Preliminary Urine,Voided
--- NOTE | 2021-10-06 12:42 | P.CONS ---
History of Present Illness - Reason for Consult Consult date: 10/06/21 Goals of care Requesting physician: Majo Newman - Chief Complaint Fever, fatigue - History of Present Illness The patient is an 85-year-old woman with a past medical history significant of dementia, PE, CAD, and frequent UTI's. She presented To the emergency room on 10/05/21 with fevers, increased lethargy, and loss of appetite. Apparently, patient's symptoms started on 09/26 with increased lethargy, loss of appetite, cloudy urine seen in the Mueller catheter bag by her family members. Subsequently, patient was taken and on 09/28 to obtain a urine culture and urin alysis. Results from this test came back positive for ESBL E. coli a couple days ago. Patient continues to have poor appetite, fatigue and is unable to move from bed. Family suspected the patient has recurrence of urinary tract infection, and therefore brought patient to the hospital for further evaluation. She underwent an epidural injection in 2003, resulting in urinary retention. She performed intermittent self-catheterization following that. She has been treated for recurrent UTIs. She was hospitalized earlier this year for treatment of an ESBL E. coli UTI. She received Invanz for 10 days. Unfortunately, her symptoms worsened 2 days after completing antibiotic therapy. She was readmitted last month. Post void residuals were elevated and catheterization volumes were high. A Mueller catheter was therefore placed. In the emergency room, patient was afebrile, 136/81, heart rate 70, 95% on room air. CBC is negative for leukocytosis. Chemistries show contractional alkalos is with carbon dioxide of 32, otherwise unremarkable. LFTs are unremarkable. CK is less than 20. UA is significant for cloudy appearance, positive nitrites, large leukocyte esterase, 113 white blood cells, white blood cell comes, bacteria, mucus. Chest x-ray is negative for acute cardiopulmonary process but shows a coarsened interstitium related to reduced inspiration. Urine culture has again shown ESBL E. coli. She is currently receiving ertapenem Review of Systems ROS unobtainable: due to mental status Past Medical History Past Medical History: Coronary Artery Disease (CAD), Hyperlipidemia, Pulmonary Embolus (PE) Additional Past Medical History / Comment(s): SEE DR BAUER'S H&P,FREQ DIZZINESS,FREQ UTI'S, urinary retention -self caths, constipation, shingles 10 years ago, osteoporosis History of Any Multi-Drug Resistant Organisms: CRE, ESBL Year Discovered:: 09/28/21 - urine - MDRO CRE MDRO Source:: Urine-ESBL and MDRO CRE Past Surgical History: Back Surgery, Coronary Bypass/CABG, Orthopedic Surgery, Tonsillectomy Additional Past Surgical History / Comment(s): PAIN CLINIC PROCEDURES,CABG 2 VESSEL 2003, maxwell cataracts,rt rotator cuff, rt hip/donna in place,"implanted monitor to monitor any cardic changes that could explain her syncopal episodes" Past Anesthesia/Blood Transfusion Reactions: Motion Sickness Past Psychological History: No Psychological Hx Reported Additional Psychological History / Comment(s): pt is a , was 51 years. 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 pt had hip sx recently .has home care nurse once a week and pt 2 times a week. Smoking Status: Never smoker Past Alcohol Use History: None Reported Past Drug Use History: None Reported - Past Family History Mother Family Medical History: Cancer Additional Family Medical History / Comment(s): LUNG cancer Father Family Medical History: Myocardial Infarction (HI) Additional Family Medical History / Comment(s): hardening of the arteries Medications and Allergies Home Medications Medication Instructions Recorded Confirmed Type Donepezil HCl [Aricept] 10 mg PO DAILY 01/07/21 10/05/21 History Memantine HCl [Memantine HCl ER] 28 mg PO DAILY 01/07/21 10/05/21 History cycloSPORINE 0.05% OPHTH SOLN 0.5 ampul BOTH EYES Q12H 08/11/21 10/05/21 History [Restasis] Allergies Allergy/AdvReac Type Severity Reaction Status Date / Time Sulfa (Sulfonamide Allergy Unknown Verified 10/05/21 13:42 Antibiotics) doxycycline AdvReac Rash/Hives Verified 10/05/21 13:42 nitrofurantoin AdvReac fainting Verified 10/05/21 13:42 [From Macrobid] Physical Exam Vitals: Vital Signs Temp Pulse Pulse Resp BP BP Pulse Ox 10/06/21 04:57 98.1 F 74 16 159/72 94 L 10/05/21 20:00 97.8 F 59 L 16 148/81 95 10/05/21 18:26 60 16 148/75 07/26/22 16:59 70 16 158/83 94 L 10/05/21 15:15 64 16 134/80 96 10/05/21 14:08 75 20 165/85 98 10/05/21 12:00 74 18 144/65 94 L 10/05/21 10:24 63 18 150/68 96 Intake and Output 10/05/21 10/06/21 10/06/21 22:59 06:59 14:59 Intake Total 675 Output Total 300 Balance 375 Intake: Intake, IV Titration 675 Amount Sodium Chloride 0.9% 1, 675 000 ml @ 75 mls/hr IV . [id number] [facility] Rx#:[id number] Output: Urine 300 Other: Voiding Method Indwelling Catheter Weight 61.235 kg General: Well-developed, frail, appears stated age. No acute distress. HEENT: Head is atraumatic, normocephalic. Pupils equal, round and reactive to light bilaterally. CV: Heart regular in rate and rhythm positive S1 and S2. No clicks, rubs or murmurs. Peripheral pulses equal. 2/4 Lungs: DIminished bilateral bases No wheezes rales or rhonchi. Respirations even and nonlabored. On RA Abdomen/GI: Soft. Bowel sounds present in all 4 quadrants. Bowel sounds normoactive. No abdominal tenderness. : Mueller catheter present draining clear yellow urine Musculoskeletal/ Extremities: MANSFIELD, + generalized weakness Vascular: Radial pulses equal. 2/4. No peripheral edema Skin: Warm and dry. No rash. Neurologic: Patient awake alert and oriented x 1-2. + confusion Psychiatric: Appropriate mood and affect. 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 No Functional Assessment * Able to walk independently - No, patient bed bound. This is new withing the last 4 weeks per daughter * Able to use the bathroom independently - No * Continent - No * Require assistance bathing- Yes * Able to feed self - Yes * Who prepares meals - pediatric care coordinator staff/family * How many meals a day eaten - 2 meals * What percentage of meals eaten daily - 50% * Able to clean house/do laundry - No * Transportation -Family * Able to shop - No * Who manages medications - Family/care givers * Who manages finances - Daughter PPS score - 30% Psychological/Emotional * Dementia present - Yes * Insight and judgment - Not intact * Depression - No * Suicidal thoughts - No * Good support system - Yes, family * Patients goals -Optimize functionality * Frequent hospitalizations - Yes * Desire to keep coming back to the hospital for treatment - Yes, if needed. Prefer to have patient treated at home by OP palliative care with direction of ID Symptoms * Pain - 0/10, continue Tylenol prn, added Tramadol prn. Daughter states she has a lot of pain when she gets OOB. Asked RN to give tramadol prior to PT. * Fatigue - + Fatigue and generalized weakness, continue PT * SOB - No, currently on RA * Insomnia - No * N/V - No * Anxiety - No * Depression - No * Confusion - Yes, continue Namenda, Aricept, and antibiotics foe UTI per ID * Agitation - No * Hallucinations - No * Appetite/weight loss - Yes, recent loss of appetite, encourage PO intake, regular diet, Hydration via IVF, added ensure TIDWM * Dysphagia - No * Constipation - No * Incontinence - chronic mueller catheter * Itch - No Plan: Summary/Goals - The patient appears to be resting in bed comfortably. She is awake and oriented to self. She is aware she in a hospital, does not know which one or why she is here. She thinks she is somewhere in [place]. She does not know the year or month. Spoke with patient's daughter via telephone. She was educated on palliative care philosophies and services. She states her mother receives palliative care as outpatient. She voiced multiple concerns. She is concerned about her mother's immobility. She states it is fairly new, within the past four weeks. Previously she was able to get up with her walker and and even cook and clean a little bit. She is unsure if it is due to progression of her dementia, arthritis, or weakness secondary to multiple hospitalizations. Physical therapy has been consulted to evaluate patient and p otential for rehab. The daughter is also concerned about the patient's recurrent urinary tract infections. 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 She stated the urologist would not agree to this. She feels as if they have given up on her mother just because she is old and wants her to "let nature take it's course". She has requested a different urologist this admission for a second opinion. She is also wondering if the antibiotic course is long enough. She feels as if as soon as they stop the antibiotics, the infection comes back. ID is following. The patient's daughter feels as if the patient has a good quality of life. She describes her as a "spitfire" when she is feeling good at home. She is happy being home, watching her game shows, and being with her cat. She was never a person who liked to go out much. She would like try antibiotic flushes in mueller catheter and/or a prolonged antibiotic treatment before making decisions moving forward. She said "then if they do not work, I will know I did everything I possibly could do for my mother." She feels as if the physicians are giving up on her because of her advanced age. Awaiting infectious disease, urology, and physical therapy's recommendations. The daughter has met with hospice recently and was told her mother did not qualify. Advanced Directives - Not on file, information given Code Status - DNR Thank you for this consult Rafaela Pineda [facility] Palliative Care [facility] [id number] Email: [email or web address] Time with Patient: Greater than 30
[2021-10-06] MEDS: traMADol 50 MG TAB PO PRN (16:07)
[2021-10-07] MEDS: SODIUM CHLORIDE 0.9% 1,000 ML IV SCH ×2 (06:23→20:06)
--- NOTE | 2021-10-07 07:48 | P.CONS ---
History of Present Illness - Reason for Consult Consult date: 10/06/21 ESBL urinary tract infection Requesting physician: Majo Newman - Chief Complaint Mental status changes x few days - History of Present Illness Patient is 85-year-old female with a past medical history significant for recurrent urinary tract infection in this patient who did have a chronic indwelling Davila catheter was brought into the ER by the family concerning for fever apparently has been going on for the last few days and the patient has been having symptoms of increasing lethargy decreased appetite cloudy urine apparently the patient did have a urine culture done as an outpatient which is positive for ESBL E. coli that was collected on 09/28/2021 and reported on 10/01/2021, patient has been brought into the ER for further evaluation and treatment patient do have underlying dementia and mention she is feeling better when specifically she denies having any headache no chest pain or shortness of the cough no abdominal pain and no diarrhea on arrival to the ER patient was afebrile and no fever have been recorded subsequently patient did have a normal white count kidney function has been normal urine has been positive patient was started on meropenem infectious disease was consulted for further management of antibiotic therapy Review of Systems Positive point has been mentioned in the HPI rest of the systems are negative All systems: negative Constitutional: Denies chills, Denies fever Eyes: denies blurred vision, denies pain Ears, nose, mouth and throat: Denies headache, Denies sore throat Cardiovascular: Denies chest pain, Denies shortness of breath Respiratory: Denies cough Gastrointestinal: Denies abdominal pain, Denies diarrhea, Denies nausea, Denies vomiting Genitourinary: Denies dysuria, Denies hematuria Musculoskeletal: Denies myalgias Integumentary: Denies pruritus, Denies rash Neurological: Denies numbness, Denies weakness Psychiatric: Denies anxiety, Denies depression Endocrine: Denies fatigue, Denies weight change Past Medical History Past Medical History: Coronary Artery Disease (CAD), Hyperlipidemia, Pulmonary Embolus (PE) Additional Past Medical History / Comment(s): SEE DR BAUER'S H&P,FREQ DIZZINESS,FREQ UTI'S, urinary retention -self caths, constipation, shingles 10 years ago, osteoporosis History of Any Multi-Drug Resistant Organisms: CRE, ESBL Year Discovered:: 09/28/21 - urine - MDRO CRE MDRO Source:: Urine-ESBL and MDRO CRE Past Surgical History: Back Surgery, Coronary Bypass/CABG, Orthopedic Surgery, Tonsillectomy Additional Past Surgical History / Comment(s): PAIN CLINIC PROCEDURES,CABG 2 VESSEL 2004, maxwell cataracts,rt rotator cuff, rt hip/donna in place,"implanted monitor to monitor any cardic changes that could explain her syncopal episodes" Past Anesthesia/Blood Transfusion Reactions: Motion Sickness Past Psychological History: No Psychological Hx Reported Additional Psychological History / Comment(s): pt is a , was 51 years. 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 pt had hip sx recently .has home care nurse once a week and pt 2 times a week. Smoking Status: Never smoker Past Alcohol Use History: None Reported Past Drug Use History: None Reported - Past Family History Mother Family Medical History: Cancer Additional Family Medical History / Comment(s): LUNG cancer Father Family Medical History: Myocardial Infarction (MS) Additional Family Medical History / Comment(s): hardening of the arteries Medications and Allergies Home Medications Medication Instructions Recorded Confirmed Type Donepezil HCl [Aricept] 10 mg PO DAILY 01/07/21 10/05/21 History Memantine HCl [Memantine HCl ER] 28 mg PO DAILY 01/07/21 10/05/21 History cycloSPORINE 0.05% OPHTH SOLN 0.5 ampul BOTH EYES Q12H 08/11/21 10/05/21 History [Restasis] Allergies Allergy/AdvReac Type Severity Reaction Status Date / Time Sulfa (Sulfonamide Allergy Unknown Verified 10/05/21 13:42 Antibiotics) doxycycline AdvReac Rash/Hives Verified 10/05/21 13:42 nitrofurantoin AdvReac fainting Verified 10/05/21 13:42 [From Macrobid] Physical Exam Vitals: Vital Signs Temp Pulse Pulse Resp BP BP Pulse Ox 10/06/21 04:57 98.1 F 74 16 159/72 94 L 10/05/21 20:00 97.8 F 59 L 16 148/81 95 10/05/21 18:26 60 16 148/75 10/05/21 16:59 70 16 158/83 94 L 10/05/21 15:15 64 16 134/80 96 10/05/21 14:08 75 20 165/85 98 10/05/21 12:00 74 18 144/65 94 L 10/05/21 10:24 63 18 150/68 96 Intake and Output 10/05/21 10/06/21 10/06/21 22:59 06:59 14:59 Intake Total 675 Output Total 300 Balance 375 Intake: Intake, IV Titration 675 Amount Sodium Chloride 0.9% 1, 675 000 ml @ 75 mls/hr IV . [id number] [facility] Rx#:[id number] Output: Urine 300 Other: Voiding Method Indwelling Catheter Weight 61.235 kg GENERAL DESCRIPTION: Elderly female lying in bed, no distress. No tachypnea or accessory muscle of respiration use. HEENT: Shows Pallor , no scleral icterus. Oral mucous membrane is dry. No pharyngeal erythema or thrush NECK: Trachea central, no thyromegaly. LUNGS: Unlabored breathing. Clear to auscultation anteriorly. No wheeze or crackle. HEART: S1, S2, regular rate and rhythm. No loud murmur ABDOMEN: Soft, no tenderness , guarding or rigidity, no organomegaly EXTREMITIES: No edema of feet. SKIN: No rash, no masses palpable. NEUROLOGICAL: The patient is awake, alert, oriented x3, mood and affect normal. Results CBC & Chem 7: 10/05/21 09:09 10/05/21 09:09 Labs: Abnormal Lab Results - Last 24 Hours (Table) 10/05/21 10/05/21 10/05/21 Range/Units 09:09 09:09 09:09 RDW 17.6 H (11.5-15.5) % Carbon Dioxide 32 H (22-30) mmol/L BUN 21 H (7-17) mg/dL Glucose 101 H (74-99) mg/dL Creatine Kinase <20 L (30-135) U/L Urine Appearance Cloudy H (Clear) Urine Protein (Negative) Urine Nitrite Positive H (Negative) Ur Leukocyte Esterase Large H (Negative) Urine WBC 113 H (0-5) /hpf Urine WBC Clumps Occasional H (None) /hpf Urine Bacteria Moderate H (None) /hpf Urine Mucus Rare H (None) /hpf 10/06/21 Range/Units 04:42 RDW (11.5-15.5) % Carbon Dioxide (22-30) mmol/L BUN (7-17) mg/dL Glucose (74-99) mg/dL Creatine Kinase (30-135) U/L Urine Appearance Cloudy H (Clear) Urine Protein Trace H (Negative) Urine Nitrite (Negative) Ur Leukocyte Esterase Large H (Negative) Urine WBC 65 H (0-5) /hpf Urine WBC Clumps (None) /hpf Urine Bacteria Rare H (None) /hpf Urine Mucus Rare H (None) /hpf Microbiology - Last 24 Hours (Table) 10/05/21 09:09 Urine Culture - Preliminary Urine,Voided Assessment and Plan (1) Urinary tract infection Current Visit: Yes Status: Acute Code(s): N39.0 - URINARY TRACT INFECTION, SITE NOT SPECIFIED SNOMED Code(s): 86876875 Plan: 1patient presented to hospital with mental status changes decreased appetite and apparently fever in the outpatient setting with a urine culture positive for ESBL E. coli about a week ago however patient on presentation to the hospital has been afebrile did have a normal white count did have a positive UA and the question of possible Davila colonization versus mild cystitis clinical not behaving as deep infection. 2Foley catheter has been changed repeat urine has been obtained as well as culture of those would be followed. 3May consider short course of meropenem the patient is currently on. We will follow on clinical condition and cultures to further adjust medication if needed Thank you for this consultation will follow this patient along with you
[2021-10-07] MEDS: HEPARIN SODIUM,PORCINE/PF 5,000 UNIT/0.5 ML SYRINGE SQ SCH ×3 (09:14→23:39)
[2021-10-07] MEDS: MEMANTINE 10 MG TAB PO SCH ×2 (09:15→20:06)
[2021-10-07] MEDS: DONEPEZIL 10 MG TAB PO SCH (09:15)
[2021-10-07] MEDS: cycloSPORINE 0.05% OPHTH 0.4 ML DROPERETTE BOTH EYES SCH ×2 (09:16→20:07)
[2021-10-07] MEDS: MEROPENEM 1 GM in SODIUM CHLORIDE 0.9% 100 ML IVPB SCH ×2 (11:30→23:38)
[2021-10-07 11:51] VITALS: BMI 26.4
--- NOTE | 2021-10-07 13:56 | P.PN ---
Subjective Progress Note Date: 10/07/21 Principal diagnosis: UTI The patient is an 85-year-old woman with a past medical history significant of dementia, PE, CAD, and frequent UTI's. She presented To the emergency room on 10/05/21 with fevers, increased lethargy, and loss of appetite. Apparently, patient's symptoms started on 09/26 with increased lethargy, loss of appetite, cloudy urine seen in the Mueller catheter bag by her family members. Subsequently, patient was taken and on 09/28 to obtain a urine culture and urinalysis. Results from this test came back positive for ESBL E. coli a couple days ago. Patient continues to have poor appetite, fatigue and is unable to move from bed. Family suspected the patient has recurrence of urinary tract infection, and therefore brought patient to the hospital for further evaluation. She underwent an epidural injection in 2003, resulting in urinary retention. She performed intermittent self-catheterization following that. She has been treated for recurrent UTIs. She was hospitalized earlier this year for treatment of an ESBL E. coli UTI. She received Invanz for 10 days. Unfortunately, her symptoms worsened 2 days after completing antibiotic therapy. She was readmitted last month. Post void residuals were elevated and catheterization volumes were high. A Mueller catheter was therefore placed. In the emergency room, patient was afebrile, 136/81, heart rate 70, 95% on room air. CBC is negative for leukocytosis. Chemistries show contractional alkalosis with carbon dioxide of 32, otherwise unremarkable. LFTs are unremarkable. CK is less than 20. UA is significant for cloudy appearance, positive nitrites, large leukocyte esterase, 113 white blood cells, white blood cell comes, bacteria, mucus. Chest x-ray is negative for acute cardiopulmonary process but shows a coarsened interstitium related to reduced inspiration. Urine culture has again shown ESBL E. coli. She is currently receiving ertapenem. 10/06 The patient appears to be resting in bed comfortably. She is awake and oriented to self. She is aware she in a hospital, does not know which one or why she is here. She thinks she is somewhere in [place]. She does not know the year or month. Spoke with patient's daughter via telephone. She was educated on palliative care philosophies and services. She states her mother receives palliative care as outpatient. She voiced multiple concerns. She is concerned about her mother's immobility. She states it is fairly new, within the past four weeks. Previously she was able to get up with her walker and and even cook and clean a little bit. She is unsure if it is due to progression of her dementia, arthritis, or weakness secondary to multiple hospitalizations. Physical therapy has been consulted to evaluate patient and potential for rehab. The daughter is also concerned about the patient's recurrent urinary tract infections. 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 She stated the urologist would not agree to this. She feels as if they have given up on her mother just because she is old and wants her to "let nature take it's course". She has requested a different urologist this admission for a second opinion. She is also wondering if the antibiotic course is long enough. She feels as if as soon as they stop the antibiotics, the infection comes back. ID is following. The patient's daughter feels as if the patient has a good quality of life. She describes her as a "spitfire" when she is feeling good at home. She is happy being home, watching her game shows, and being with her cat. She was never a person who liked to go out much. She would like try antibiotic flushes in mueller catheter and/or a prolonged antibiotic treatment before making decisions moving forward. She said "then if they do not work, I will know I did everything I possibly could do for my mother." She feels as if the physicians are giving up on her because of her advanced age. Awaiting infectious disease, urology, and physical therapy's recommendations. The daughter has met with hospice recently and was told her mother did not qualify. Objective - Vital Signs Vital signs: Vital Signs Temp 98.2 F 10/07/21 12:48 Pulse 76 10/07/21 12:48 Resp 16 10/07/21 12:48 BP 112/70 10/07/21 12:48 Pulse Ox 95 10/07/21 12:48 FiO2 Intake & Output 10/06/21 10/07/21 10/07/21 18:59 06:59 18:59 Intake Total 1800 590 Output Total 500 Balance 1300 590 Weight 61.235 kg Intake: Intake, IV Titration 650 Amount Ertapenem 1 gm In Sodium 50 Chloride 0.9% 50 ml @ 100 mls/hr IVPB DAILY [facility] Rx #:[id number] Meropenem 1 gm In Sodium 100 Chloride 0.9% 100 ml @ 33 .333 mls/hr IVPB Q12HR@ 0000,1200 [facility] Rx#: [id number] Sodium Chloride 0.9% 1, 500 000 ml @ 75 mls/hr IV . [id number] [facility] Rx#:[id number] Oral 1150 590 Output: Urine 500 Other: Voiding Method Indwelling Catheter Indwelling Catheter Indwelling Catheter # Voids 1 # Bowel Movements 1 - Exam General: Well-developed, frail, appears stated age. No acute distress. HEENT: Head is atraumatic, normocephalic. Pupils equal, round and reactive to light bilaterally. CV: Heart regular in rate and rhythm positive S1 and S2. No clicks, rubs or murmurs. Peripheral pulses equal. 2/4 Lungs: DIminished bilateral bases No wheezes rales or rhonchi. Respirations even and nonlabored. On RA Abdomen/GI: Soft. Bowel sounds present in all 4 quadrants. Bowel sounds normoactive. No abdominal tenderness. : Mueller catheter present draining clear yellow urine Musculoskeletal/ Extremities: MANSFIELD, + generalized weakness Vascular: Radial pulses equal. 2/4. No peripheral edema Skin: Warm and dry. No rash. Neurologic: Patient awake alert and oriented x 1-2. + confusion Psychiatric: Appropriate mood and affect. - Labs CBC & Chem 7: 10/05/21 09:09 10/05/21 09:09 Labs: Microbiology - Last 24 Hours (Table) 10/05/21 08:51 Blood Culture - Preliminary Blood No Growth after 48 hours 10/05/21 09:04 Blood Culture - Preliminary Blood No Growth after 48 hours 10/05/21 09:09 Urine Culture - Final Urine,Voided Escherichia coli Assessment and Plan Assessment: Symptoms * Pain - 0/10, continue Tylenol prn, and Tramadol prn. Daughter states she has a lot of pain when she gets OOB. Asked RN to give tramadol prior to PT. * Fatigue - + Fatigue and generalized weakness, continue PT * SOB - No, currently on RA * Insomnia - No * N/V - No * Anxiety - No * Depression - No * Confusion - Yes, continue Namenda, Aricept, and antibiotics for UTI per ID * Agitation - No * Hallucinations - No * Appetite/weight loss - Yes, recent loss of appetite, encourage PO intake, regular diet, Hydration via IVF, added ensure TIDWM * Dysphagia - No * Constipation - No * Incontinence - chronic mueller catheter * Itch - No Plan: Summary/Goals - Patient resting in bed and appears comfortable. She states she does not remember our meeting yesterday or what was discussed. She is confused and stated she only got out of bed today to pee. However, she has mueller catheter. Per physical therapy, the patient is able to hold herself up at the edge of the bed with use of bed rail. She complains of bilateral knee pain with movement. She was unable to to totally stand upright due to inability/unwillingness to push through her legs due to pain. They recommend STEFFI. The patient was not given Tramadol prior to working with physical therapy as requested. The patient's antibiotics have been changed to Meropenem. There are plans to continue IV antibiotics for [address] Baxter's recommendations. Patient's daughter, Lu, updated via telephone. Advanced Directives - Not on file, information given Code Status - DNR Thank you for this consult Rafaela Pineda [facility]- Palliative [facility] [place] [id number] Email: [email or web address] Time with Patient: Less than 30
--- NOTE | 2021-10-07 17:24 | P.PN ---
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 Apparently, patient's symptoms started on 09/26 with increased lethargy, loss of appetite, cloudy urine seen in the Davila catheter bag by her family members. Subsequently, patient was taken and on 09/28 to obtain a urine culture and urinalysis. Results from this test came back positive for ESBL E. coli couple days ago. Patient continues to have poor appetite, fatigue and is unable to move from bed. Family suspected the patient has recurrence of urinary tract infection, and therefore brought patient to the hospital for further evaluation. Physical exam: Patient seen and fully evaluated at bedside this morning. He was resting comfortably. She was alert and oriented to person, place, and situation. Patient was confused to time. Patient states that even if she has to go home on IV antibiotics, she is requesting to be discharged home with her daughter and states her daughter can take care of that. Case management discussed with family patient will likely need SNF placement upon discharge. Order placed for PICC line as blood culture showing no growth 48 hours. Vital signs reviewed and stable. General: Nontoxic, no distress and appears stated age. Derm: Skin warm and dry, normal coloration for ethnicity. Head: Atraumatic, normocephalic and symmetric. Eyes: EOMs intact, no lid lag, and anicteric sclera Mouth: no lip lesions, mucus membranes moist Cardiovascular: regular rate and rhythm with normal S1S2, no murmur, positive posterior tibial pulses bilaterally, and cap refill < 2 seconds. Lungs: Respirations even, regular, and unlabored on room air. Lungs CTA bilaterally, no rhonchi, no rales, no wheezing, and no accessory muscle usage. GI/: soft, nontender to palpation, no guarding, no appreciable organomegaly. Davila catheter in place. Ext: ROM intact. No gross muscle atrophy, no edema, no contractures Neuro: Speech clear, face symmetrical and CN II-XII grossly intact with no noted focal neuro deficits Psych: Alert and oriented to person, place, and situation exhibiting some confusion with time. Appropriate and pleasant affect. Assessment and Plan of Care: ESBL urinary tract infection related to chronic indwelling Davila catheter, present on admission -ID consult -Davila catheter changed out on 10/06/21 -Urine culture positive for ESBL -Blood culture showing no growth to date -Continue IV antibiotics with meropenem -IV fluids and ensure 3 times daily between meals Dementia Urinary retention Bedbound -Patient's family requesting a urology consult, specifically, Dr. Baxter -Palliative consult -Remaining home medications reconciled CODE STATUS: DO NOT RESUSCITATE/DO NOT INTUBATE DVT prophylaxis: Heparin Discussed with: Patient, case management, and RN Anticipated discharge date: Clinical course to determine Anticipated discharge place: [facility] A total of 36 minutes was spent on the care of this complex patient more than 50% of the time was spent in counseling and care coordination. Objective - Vital Signs Vital signs: Vital Signs Temp 97.8 F 10/07/21 07:08 Pulse 70 10/07/21 07:08 Resp 16 10/07/21 07:08 BP 130/68 10/07/21 07:08 Pulse Ox 94 L 10/07/21 05:00 FiO2 Intake & Output 10/06/21 10/07/21 10/07/21 18:59 06:59 18:59 Intake Total 1800 590 Output Total 500 Balance 1300 590 Intake: Intake, IV Titration 650 Amount Ertapenem 1 gm In Sodium 50 Chloride 0.9% 50 ml @ 100 mls/hr IVPB DAILY [facility] Rx #:[id number] Meropenem 1 gm In Sodium 100 Chloride 0.9% 100 ml @ 33 .333 mls/hr IVPB Q12HR@ 0000,1200 [facility] Rx#: [id number] Sodium Chloride 0.9% 1, 500 000 ml @ 75 mls/hr IV . [id number] [facility] Rx#:[id number] Oral 1150 590 Output: Urine 500 Other: Voiding Method Indwelling Catheter Indwelling Catheter Indwelling Catheter # Voids 1 # Bowel Movements 1 - Labs CBC & Chem 7: 10/05/21 09:09 10/05/21 09:09 Labs: Microbiology - Last 24 Hours (Table) 10/05/21 09:09 Urine Culture - Preliminary Urine,Voided Gram Neg Bacilli 10/05/21 08:51 Blood Culture - Preliminary Blood No Growth after 24 hours 10/05/21 09:04 Blood Culture - Preliminary Blood No Growth after 24 hours
--- NOTE | 2021-10-07 22:58 | P.PN ---
Subjective Progress Note Date: 10/07/21 Principal diagnosis: Recurrent urinary tract infection Patient is a 85-year-old female with a past medical history significant for a urinary retention requiring chronic indwelling Davila catheter and history of recurrent UTI and admitted to the hospital with another episode of UTI. On today's evaluation that is 10/07/2021, the patient denies having any fever or any chills, the patient is breathing comfortably, the patient denies having any chest pain or shortness of breath or cough no abdominal pain or diarrhea Objective - Vital Signs Vital signs: Vital Signs Temp 98.2 F 10/07/21 12:48 Pulse 76 10/07/21 12:48 Resp 16 10/07/21 12:48 BP 112/70 10/07/21 12:48 Pulse Ox 95 10/07/21 12:48 FiO2 Intake & Output 10/06/21 10/07/21 10/07/21 18:59 06:59 18:59 Intake Total 1800 590 Output Total 500 Balance 1300 590 Weight 61.235 kg Intake: Intake, IV Titration 650 Amount Ertapenem 1 gm In Sodium 50 Chloride 0.9% 50 ml @ 100 mls/hr IVPB DAILY [facility] Rx #:[id number] Meropenem 1 gm In Sodium 100 Chloride 0.9% 100 ml @ 33 .333 mls/hr IVPB Q12HR@ 0000,1200 [facility] Rx#: [id number] Sodium Chloride 0.9% 1, 500 000 ml @ 75 mls/hr IV . [id number] [facility] Rx#:[id number] Oral 1150 590 Output: Urine 500 Other: Voiding Method Indwelling Catheter Indwelling Catheter Indwelling Catheter # Voids 1 # Bowel Movements 1 - Exam GENERAL DESCRIPTION: An elderly female lying in bed in no distress RESPIRATORY SYSTEM: Unlabored breathing , decreased breath sounds at bases HEART: S1 S2 regular rate and rhythm , ABDOMEN: Soft , no tenderness EXTREMITIES: No edema feet - Labs CBC & Chem 7: 10/05/21 09:09 10/05/21 09:09 Labs: Microbiology - Last 24 Hours (Table) 10/05/21 08:51 Blood Culture - Preliminary Blood No Growth after 48 hours 10/05/21 09:04 Blood Culture - Preliminary Blood No Growth after 48 hours 10/05/21 09:09 Urine Culture - Final Urine,Voided Escherichia coli Assessment and Plan (1) Urinary tract infection Current Visit: Yes Status: Acute Code(s): N39.0 - URINARY TRACT INFECTION, SITE NOT SPECIFIED SNOMED Code(s): 33450115 Plan: 1patient presented to hospital with mental status changes decreased appetite an d apparently fever in the outpatient setting with a urine culture positive for ESBL E. coli about a week ago however patient on presentation to the hospital has been afebrile did have a normal white count did have a positive UA and the question of possible Davila colonization versus mild cystitis clinical not behaving as deep infection. 2Foley catheter has been changed repeat urine has been obtained as well as culture of those would be followed. 3patient to continue with meropenem while waiting for repeat urine cultures to be finalize Time with Patient: Less than 30
[2021-10-08 09:15] LABS: HCT 36.5 % (37.2-46.3); HGB 10.8 g/dL (12.0-15.0); MCH 25.9 pg (27.0-32.0); MCHC 29.6 g/dL (32.0-37.0); MCV 87.5 fL (80.0-97.0); Mean Platelet Volume 11.2 fL (9.5-12.2); NRBC Per 100 WBC 0 /100 WBCS (0.0-0.0); Platelet Count 236 X 10*3/uL (140-440); RBC 4.17 X 10*6/uL (4.10-5.20); RDW 17.9 % (11.5-14.5); WBC 6.17 X 10*3/uL (4.50-10.00)
[2021-10-08] MEDS: HEPARIN SODIUM,PORCINE/PF 5,000 UNIT/0.5 ML SYRINGE SQ SCH ×3 (09:45→23:26)
[2021-10-08] MEDS: DONEPEZIL 10 MG TAB PO SCH (09:46)
[2021-10-08] MEDS: cycloSPORINE 0.05% OPHTH 0.4 ML DROPERETTE BOTH EYES SCH ×2 (09:46→21:45)
[2021-10-08] MEDS: MEMANTINE 10 MG TAB PO SCH ×2 (09:46→21:45)
[2021-10-08] MEDS: traMADol 50 MG TAB PO PRN (09:52)
[2021-10-08 10:18] LABS: ALT <5 U/L (8-44); AST 12 U/L (13-35); Albumin/Globulin Ratio 1.41 (1.60-3.17); Alkaline Phosphatase 68 U/L (41-126); BUN/Creat Ratio 24.74 Ratio (12.00-20.00); Carbon Dioxide 26.6 mmol/L (20.0-27.5); Chloride 108 mmol/L (96-109); Globulin 2.2 g/dL (1.6-3.3); Glucose 94 mg/dL (70-110); Magnesium 2.1 mg/dL (1.5-2.4); Non-African American GFR(CKD) 89.8 (60.0-200.0); Potassium 3.6 mmol/L (3.5-5.5); Sodium 141 mmol/L (135-145); Total Protein 5.2 g/dL (6.2-8.2)
[2021-10-08] MEDS: SODIUM CHLORIDE 0.9% 1,000 ML IV SCH ×2 (11:23→21:46)
[2021-10-08] MEDS: MEROPENEM 1 GM in SODIUM CHLORIDE 0.9% 100 ML IVPB SCH ×2 (13:33→22:00)
--- NOTE | 2021-10-08 15:19 | P.PN ---
Subjective Progress Note Date: 10/08/21 Principal diagnosis: Recurrent urinary tract infection Patient is a 85-year-old female with a past medical history significant for a urinary retention requiring chronic indwelling Davila catheter and history of recurrent UTI and admitted to the hospital with another episode of UTI. On today's evaluation that is 10/08/2021, the patient remains to be afebrile, the patient is breathing comfortably on room ear, the patient denies having any chest pain or shortness of breath or cough , the patient denies abdominal pain or diarrhea Objective - Vital Signs Vital signs: Vital Signs Temp 98.2 F 10/08/21 07:24 Pulse 67 10/08/21 07:24 Resp 16 10/08/21 07:24 BP 151/81 10/08/21 07:24 Pulse Ox 93 L 10/08/21 07:24 FiO2 Intake & Output 10/07/21 10/08/21 10/08/21 18:59 06:59 18:59 Intake Total 1080 110 Output Total 600 325 Balance -600 755 110 Weight 61.235 kg Intake: Intake, IV Titration 900 Amount Meropenem 1 gm In Sodium 100 Chloride 0.9% 100 ml @ 33 .333 mls/hr IVPB Q12HR@ 0000,1200 [facility] Rx#: [id number] Sodium Chloride 0.9% 1, 800 000 ml @ 75 mls/hr IV . [id number] [facility] Rx#:[id number] Oral 180 110 Output: Urine 600 325 Other: Voiding Method Indwelling Catheter Indwelling Catheter - Exam GENERAL DESCRIPTION: An elderly female lying in bed in no distress RESPIRATORY SYSTEM: Unlabored breathing , decreased breath sounds at bases HEART: S1 S2 regular rate and rhythm , ABDOMEN: Soft , no tenderness EXTREMITIES: No edema feet - Labs CBC & Chem 7: 10/08/21 05:55 10/08/21 05:55 Labs: Abnormal Lab Results - Last 24 Hours (Table) 10/08/21 10/08/21 Range/Units 05:55 05:55 Hgb 10.8 L (12.0-15.0) g/dL Hct 36.5 L (37.2-46.3) % MCH 25.9 L (27.0-32.0) pg MCHC 29.6 L (32.0-37.0) g/dL RDW 17.9 H (11.5-14.5) % Anion Gap 6.70 L (10.00-18.00) mmol/L Creatinine 0.5 L (0.6-1.5) mg/dL BUN/Creatinine Ratio 24.74 H (12.00-20.00) Ratio AST 12 L (13-35) U/L ALT <5 L (8-44) U/L Total Protein 5.2 L (6.2-8.2) g/dL Albumin 3.0 L (3.8-4.9) g/dL Albumin/Globulin Ratio 1.41 L (1.60-3.17) g/dL Microbiology - Last 24 Hours (Table) 10/05/21 09:04 Blood Culture - Preliminary Blood No Growth after 72 hours 10/05/21 08:51 Blood Culture - Preliminary Blood No Growth after 72 hours 10/05/21 09:09 Urine Culture - Final Urine,Voided Escherichia coli Assessment and Plan (1) Urinary tract infection Current Visit: Yes Status: Acute Code(s): N39.0 - URINARY TRACT INFECTION, SITE NOT SPECIFIED SNOMED Code(s): 61737496 Plan: 1patient presented to hospital with mental status changes decreased appetite and apparently fever in the outpatient setting with a urine culture positive for ESBL E. coli about a week ago however patient on presentation to the hospital has been afebrile did have a normal white count did have a positive UA and the question of possible Davila colonization versus mild cystitis clinical not behaving as deep infection. 2Foley catheter has been changed repeat urine has been obtained cultures are growing ESBL E. coli 3patient is clinically behaving as a possible cystitis and not a deep infection such as pyelonephritis in this patient with no fever or elevated white count, patient to have risk factor for recurrent UTI which is postmenopausal age and indwelling Davila catheter detailed discussion with the daughter how to prevent recurrent UTI that may include increasing fluid intake local hygiene to make sure the catheter doesn't get contaminated every time the patient have a bowel movement along with changing Davila catheter every 2 weeks instead of 4 weeks, unfortunately the patient to have ALLERGIES to Macrobid sulfa and doxycycline and we cannot use any medication for oral suppressive antibiotic therapy, there is no need for PICC line or outpatient IV antibiotic therapy as that would not make any difference in decreasing risk for another episode of catheter associated UTI, and this was explained to the patient daughter in layman terms Time with Patient: Less than 30
--- NOTE | 2021-10-08 16:14 | P.PN ---
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 Apparently, patient's symptoms started on 09/26 with increased lethargy, loss of appetite, cloudy urine seen in the Davila catheter bag by her family members. Subsequently, patient was taken and on 09/28 to obtain a urine culture and urinalysis. Results from this test came back positive for ESBL E. coli couple days ago. Patient continues to have poor appetite, fatigue and is unable to move from bed. Family suspected the patient has recurrence of urinary tract infection, and therefore brought patient to the hospital for further evaluation. Physical exam: Patient seen and fully evaluated at bedside this morning. She was resting comfortably and denied having any complaints. Discussed with patient plan for discharge and patient in agreement to go to half-way facility. Plan is for patient to be discharged to [facility], likely on Monday status post 5 day course of meropenem. Awaiting insurance authorization. Vital signs reviewed and stable. General: Nontoxic, no distress and appears stated age. Derm: Skin warm and dry, normal coloration for ethnicity. Head: Atraumatic, normocephalic and symmetric. Eyes: EOMs intact, no lid lag, and anicteric sclera Mouth: no lip lesions, mucus membranes moist Cardiovascular: regular rate and rhythm with normal S1S2, no murmur, positive posterior tibial pulses bilaterally, and cap refill < 2 seconds. Lungs: Respirations even, regular, and unlabored on room air. Lungs CTA bilaterally, no rhonchi, no rales, no wheezing, and no accessory muscle usage. GI/: soft, nontender to palpation, no guarding, no appreciable organomegaly. Davila catheter in place. Ext: ROM intact. No gross muscle atrophy, no edema, no contractures Neuro: Speech clear, face symmetrical and CN II-XII grossly intact with no noted focal neuro deficits Psych: Alert and oriented to person, place, and situation exhibiting some confusion with time. Appropriate and pleasant affect. Assessment and Plan of Care: ESBL urinary tract infection related to chronic indwelling Davila catheter, present on admission -ID consult -Davila catheter changed out on 10/06/21 -Urine culture positive for ESBL -Blood culture showing no growth to date -Continue IV antibiotics with meropenem. Per Infectious disease patient requires 3-5 days of IV antibiotics with meropenem prior to discharge. -IV fluids and ensure 3 times daily between meals Dementia Urinary retention Bedbound -Patient's family requesting a urology consult, specifically, Dr. Baxter -Palliative consult -Remaining home medications reconciled CODE STATUS: DO NOT RESUSCITATE/DO NOT INTUBATE DVT prophylaxis: Heparin Discussed with: Patient, case management, and RN. Case management spoke with patient's daughters plan is for discharge to [facility]. Awaiting insurance auth Anticipated discharge date: Monday10/11/[address]: [facility] A total of 35 minutes was spent on the care of this complex patient more than 50% of the time was spent in counseling and care coordination. Objective - Vital Signs Vital signs: Vital Signs Temp 98.2 F 10/08/21 07:24 Pulse 67 10/08/21 07:24 Resp 16 10/08/21 07:24 BP 151/81 10/08/21 07:24 Pulse Ox 93 L 10/08/21 07:24 FiO2 Intake & Output 10/07/21 10/08/21 10/08/21 18:59 06:59 18:59 Intake Total 1080 Output Total 600 325 Balance -600 755 Weight 61.235 kg Intake: Intake, IV Titration 900 Amount Meropenem 1 gm In Sodium 100 Chloride 0.9% 100 ml @ 33 .333 mls/hr IVPB Q12HR@ 0000,1200 [facility] Rx#: [id number] Sodium Chloride 0.9% 1, 800 000 ml @ 75 mls/hr IV . [id number] [facility] Rx#:[id number] Oral 180 Output: Urine 600 325 Other: Voiding Method Indwelling Catheter Indwelling Catheter - Labs CBC & Chem 7: 10/08/21 05:55 10/08/21 05:55 Labs: Microbiology - Last 24 Hours (Table) 10/05/21 08:51 Blood Culture - Preliminary Blood No Growth after 48 hours 10/05/21 09:04 Blood Culture - Preliminary Blood No Growth after 48 hours 10/05/21 09:09 Urine Culture - Final Urine,Voided Escherichia coli
[2021-10-08] MEDS: ACETAMINOPHEN TAB 325 MG TAB PO PRN (18:03)
[2021-10-09] MEDS: MEROPENEM 1 GM in SODIUM CHLORIDE 0.9% 100 ML IVPB SCH ×3 (06:10→21:52)
[2021-10-09] MEDS: MEMANTINE 10 MG TAB PO SCH ×2 (08:39→21:51)
[2021-10-09] MEDS: cycloSPORINE 0.05% OPHTH 0.4 ML DROPERETTE BOTH EYES SCH ×2 (08:39→21:51)
[2021-10-09] MEDS: DONEPEZIL 10 MG TAB PO SCH (08:39)
[2021-10-09] MEDS: HEPARIN SODIUM,PORCINE/PF 5,000 UNIT/0.5 ML SYRINGE SQ SCH ×3 (08:39→23:21)
[2021-10-09] MEDS: SODIUM CHLORIDE 0.9% 1,000 ML IV SCH (11:57)
[2021-10-09] MEDS: ACETAMINOPHEN TAB 325 MG TAB PO PRN (11:59)
--- NOTE | 2021-10-09 18:08 | P.PN ---
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 Apparently, patient's symptoms started on 09/26 with increased lethargy, loss of appetite, cloudy urine seen in the Davila catheter bag by her family members. Subsequently, patient was taken and on 09/28 to obtain a urine culture and urinalysis. Results from this test came back positive for ESBL E. coli couple days ago. Patient continues to have poor appetite, fatigue and is unable to move from bed. Family suspected the patient has recurrence of urinary tract infection, and therefore brought patient to the hospital for further evaluation. Physical exam: Patient seen and fully evaluated at bedside this morning. She was sitting up in chair and appeared to be doing well. Again discussed plan of care regarding co ntinuation of IV meropenem and likely discharge to [facility] on Monday. Patient denied having any headache, lightheadedness, dizziness, chest pain, palpitations, shortness of breath, or abdominal pain. Patient was eating breakfast. Vital signs reviewed and stable. General: Nontoxic, no distress and appears stated age. Derm: Skin warm and dry, normal coloration for ethnicity. Head: Atraumatic, normocephalic and symmetric. Eyes: EOMs intact, no lid lag, and anicteric sclera Mouth: no lip lesions, mucus membranes moist Cardiovascular: regular rate and rhythm with normal S1S2, no murmur, positive posterior tibial pulses bilaterally, and cap refill < 2 seconds. Lungs: Respirations even, regular, and unlabored on room air. Lungs CTA bilaterally, no rhonchi, no rales, no wheezing, and no accessory muscle usage. GI/: soft, nontender to palpation, no guarding, no appreciable organomegaly. Davila catheter in place. Ext: ROM intact. No gross muscle atrophy, no edema, no contractures Neuro: Speech clear, face symmetrical and CN II-XII grossly intact with no noted focal neuro deficits Psych: Alert and oriented to person, place, and situation exhibiting some confusion with time. Appropriate and pleasant affect. Assessment and Plan of Care: ESBL urinary tract infection related to chronic indwelling Davila catheter, present on admission -ID consult -Davila catheter changed out on 10/06/21 -Urine culture positive for ESBL -Blood culture showing no growth to date -Continue IV antibiotics with meropenem. Per Infectious disease patient requires 5 days of IV antibiotics with meropenem prior to discharge. -Continue ensure 3 times daily between meals Dementia Urinary retention Bedbound -Patient's family requesting a urology consult, specifically, Dr. Baxter -Palliative consult -Remaining home medications reconciled CODE STATUS: DO NOT RESUSCITATE/DO NOT INTUBATE DVT prophylaxis: Heparin Discussed with: Patient, case management, and RN. Case management spoke with patient's daughters plan is for discharge to [facility]. Awaiting insurance auth Anticipated discharge date: Monday10/11/[address]: [facility] A total of 35 minutes was spent on the care of this complex patient more than 50% of the time was spent in counseling and care coordination. Objective - Vital Signs Vital signs: Vital Signs Temp 98.2 F 10/09/21 04:46 Pulse 62 10/09/21 04:46 Resp 18 10/09/21 04:46 BP 144/76 10/09/21 04:46 Pulse Ox 95 10/09/21 04:46 FiO2 Intake & Output 10/08/21 10/09/21 10/09/21 18:59 06:59 18:59 Intake Total 270 Output Total 650 400 Balance -380 -400 Intake: Oral 270 Output: Urine 650 400 Other: Voiding Method Indwelling Catheter Indwelling Catheter - Labs CBC & Chem 7: 10/08/21 05:55 10/08/21 05:55 Labs: Abnormal Lab Results - Last 24 Hours (Table) 10/08/21 10/08/21 Range/Units 05:55 05:55 Hgb 10.8 L (12.0-15.0) g/dL Hct 36.5 L (37.2-46.3) % MCH 25.9 L (27.0-32.0) pg MCHC 29.6 L (32.0-37.0) g/dL RDW 17.9 H (11.5-14.5) % Anion Gap 6.70 L (10.00-18.00) mmol/L Creatinine 0.5 L (0.6-1.5) mg/dL BUN/Creatinine Ratio 24.74 H (12.00-20.00) Ratio AST 12 L (13-35) U/L ALT <5 L (8-44) U/L Total Protein 5.2 L (6.2-8.2) g/dL Albumin 3.0 L (3.8-4.9) g/dL Albumin/Globulin Ratio 1.41 L (1.60-3.17) g/dL Microbiology - Last 24 Hours (Table) 10/05/21 09:04 Blood Culture - Preliminary Blood No Growth after 72 hours 10/05/21 08:51 Blood Culture - Preliminary Blood No Growth after 72 hours
--- NOTE | 2021-10-09 21:56 | P.PN ---
Subjective Progress Note Date: 10/09/21 Principal diagnosis: Recurrent urinary tract infection Patient is a 85-year-old female with a past medical history significant for a urinary retention requiring chronic indwelling Davila catheter and history of recurrent UTI and admitted to the hospital with another episode of UTI. On today's evaluation that is 10/09/2021, the patient continues to be afebrile, the patient is breathing comfortably on room ear, the patient denies chest pain shortness of breath or cough , the patient denies abdominal pain or diarrhea, mention feeling better Objective - Vital Signs Vital signs: Vital Signs Temp 98.7 F 10/09/21 11:32 Pulse 64 10/09/21 11:32 Resp 13 10/09/21 11:32 BP 116/64 10/09/21 11:32 Pulse Ox 94 L 10/09/21 11:32 FiO2 Intake & Output 10/08/21 10/09/21 10/09/21 18:59 06:59 18:59 Intake Total 270 Output Total 650 400 Balance -380 -400 Intake: Oral 270 Output: Urine 650 400 Other: Voiding Method Indwelling Catheter Indwelling Catheter - Exam GENERAL DESCRIPTION: An elderly female lying in bed in no distress RESPIRATORY SYSTEM: Unlabored breathing , decreased breath sounds at bases HEART: S1 S2 regular rate and rhythm , ABDOMEN: Soft , no tenderness EXTREMITIES: No edema feet - Labs CBC & Chem 7: 10/08/21 05:55 10/08/21 05:55 Labs: Microbiology - Last 24 Hours (Table) 10/05/21 08:51 Blood Culture - Preliminary Blood No Growth after 96 hours 10/05/21 09:04 Blood Culture - Preliminary Blood No Growth after 96 hours Assessment and Plan (1) Urinary tract infection Current Visit: Yes Status: Acute Code(s): N39.0 - URINARY TRACT INFECTION, SITE NOT SPECIFIED SNOMED Code(s): 37336917 Plan: 1patient presented to hospital with mental status changes decreased appetite and apparently fever in the outpatient setting with a urine culture positive for ESBL E. coli about a week ago however patient on presentation to the hospital has been afebrile did have a normal white count did have a positive UA and the question of possible Davila colonization versus mild cystitis clinical not behaving as deep infection. 2Foley catheter has been changed repeat urine has been obtained cultures are growing ESBL E. coli 3patient is clinically behaving as a possible cystitis and not a deep infection such as pyelonephritis in this patient with no fever or elevated white count, patient will continue with meropenem in patient and can be safely discontinued on discharge Time with Patient: Less than 30
[2021-10-10] MEDS: MEROPENEM 1 GM in SODIUM CHLORIDE 0.9% 100 ML IVPB SCH ×3 (06:13→22:07)
[2021-10-10] MEDS: HEPARIN SODIUM,PORCINE/PF 5,000 UNIT/0.5 ML SYRINGE SQ SCH ×3 (08:16→22:09)
[2021-10-10] MEDS: DONEPEZIL 10 MG TAB PO SCH (08:16)
[2021-10-10] MEDS: MEMANTINE 10 MG TAB PO SCH ×2 (08:17→19:56)
[2021-10-10] MEDS: cycloSPORINE 0.05% OPHTH 0.4 ML DROPERETTE BOTH EYES SCH ×2 (08:17→19:57)
[2021-10-10 09:32] LABS: Albumin/Globulin Ratio 1.49 (1.60-3.17); Anion Gap 6.4 mmol/L (10.00-18.00); BUN/Creat Ratio 30.2 Ratio (12.00-20.00); Blood Urea Nitrogen 15.1 mg/dL (9.0-27.0); Carbon Dioxide 24.1 mmol/L (20.0-27.5); Non-African American GFR(CKD) 88.9 (60.0-200.0); Potassium 3.6 mmol/L (3.5-5.5); Total Bilirubin 0.3 mg/dL (0.30-1.20); Total Protein 5.1 g/dL (6.2-8.2)
[2021-10-10 09:58] LABS: HCT 33.8 % (37.2-46.3); HGB 10.1 g/dL (12.0-15.0); MCH 26.2 pg (27.0-32.0); MCHC 29.9 g/dL (32.0-37.0); MCV 87.6 fL (80.0-97.0); Mean Platelet Volume 11.9 fL (9.5-12.2); NRBC Per 100 WBC 0 /100 WBCS (0.0-0.0); Platelet Count 237 X 10*3/uL (140-440); RBC 3.86 X 10*6/uL (4.10-5.20); RDW 17.9 % (11.5-14.5); WBC 5.87 X 10*3/uL (4.50-10.00)
[2021-10-10] MEDS: ACETAMINOPHEN TAB 325 MG TAB PO PRN (14:30)
--- NOTE | 2021-10-10 15:47 | P.PN ---
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 Apparently, patient's symptoms started on 09/26 with increased lethargy, loss of appetite, cloudy urine seen in the Davila catheter bag by her family members. Subsequently, patient was taken and on 09/28 to obtain a urine culture and urinalysis. Results from this test came back positive for ESBL E. coli couple days ago. Patient continues to have poor appetite, fatigue and is unable to move from bed. Family suspected the patient has recurrence of urinary tract infection, and therefore brought patient to the hospital for further evaluation. Upon arrival to the hospital patient again underwent full evaluation. CBC was unremarkable BUN revealing hypercarbia with CO2 32 and prerenal azotemia with BUN of 21. Urinalysis showing nitrite positive infection with WBC count of 113. Patient was admitted under our services with consultation to infectious disease and urology. Urine culture positive for ESBL. Blood cultures showing no growth after 120 hours. Physical exam: Patient seen and fully evaluated at bedside this morning. Patient resting in bed and easily awoken via verbal stimuli, she denied having any complaints, questions or concerns at this time. Davila catheter remains in place. Morning labs reviewed revealing normocytic microchromic anemia with hemoglobin of 10.1, anion gap of 6.40, creatinine of 0.5, AST of 12, ALT is 6, and albumin of 3.0. Plan is for discharge to [facility] tomorrow once insurance authorization is obtained. Vital signs reviewed and stable. General: Nontoxic, no distress and appears stated age. Derm: Skin warm and dry, normal coloration for ethnicity. Head: Atraumatic, normocephalic and symmetric. Eyes: EOMs intact, no lid lag, and anicteric sclera Mouth: no lip lesions, mucus membranes moist Cardiovascular: regular rate and rhythm with normal S1S2, systolic murmur, positive posterior tibial pulses bilaterally, and cap refill < 2 seconds. Lungs: Respirations even, regular, and unlabored on room air. Lungs CTA bilaterally, no rhonchi, no rales, no wheezing, and no accessory muscle usage. GI/: soft, nontender to palpation, no guarding, no appreciable organomegaly. Davila catheter in place. Ext: ROM intact. No gross muscle atrophy, chronic bilateral lower extremity nonpitting edema, no contractures Neuro: Speech clear, face symmetrical and CN II-XII grossly intact with no noted focal neuro deficits Psych: Alert and oriented to person, place, and situation exhibiting some confusion with time. Appropriate and pleasant affect. Assessment and Plan of Care: ESBL urinary tract infection related to chronic indwelling Davila catheter, present on admission -ID consult -Davila catheter changed out on 10/06/21 -Urine culture positive for ESBL -Blood culture showing no growth to date -Continue IV antibiotics with meropenem. Per Infectious disease patient requires 5 days of IV antibiotics with meropenem prior to discharge. -Continue ensure 3 times daily between meals Dementia Urinary retention Bedbound -Patient's family requesting a urology consult, specifically, Dr. Baxter -Palliative consult -Remaining home medications reconciled CODE STATUS: DO NOT RESUSCITATE/DO NOT INTUBATE DVT prophylaxis: Heparin Discussed with: Patient, case management, and RN. Case management spoke with patient's daughters plan is for discharge to [facility]. Awaiting insurance auth Anticipated discharge date: [place] pending insurance authorization Anticipated discharge place: [facility] A total of 35 minutes was spent on the care of this complex patient more than 50 % of the time was spent in counseling and care coordination. I reviewed the documentation as provided by the LIA above, who is the original author of this note. I agree with the documented assessment and plan, with the following changes: none Objective - Vital Signs Vital signs: Vital Signs Temp 98.5 F 10/10/21 04:34 Pulse 73 10/10/21 04:34 Resp 16 10/10/21 04:34 BP 158/75 10/10/21 04:34 Pulse Ox 94 L 10/10/21 04:34 FiO2 Intake & Output 10/09/21 10/10/21 10/10/21 18:59 06:59 18:59 Intake Total 100 Output Total 500 600 Balance -500 -500 Intake: Oral 100 Output: Urine 500 600 Other: Voiding Method Indwelling Catheter Indwelling Catheter - Labs CBC & Chem 7: 10/10/21 04:28 10/10/21 04:28 Labs: Microbiology - Last 24 Hours (Table) 10/05/21 08:51 Blood Culture - Preliminary Blood No Growth after 96 hours 10/05/21 09:04 Blood Culture - Preliminary Blood No Growth after 96 hours
[2021-10-11] MEDS: MEROPENEM 1 GM in SODIUM CHLORIDE 0.9% 100 ML IVPB SCH ×2 (05:40→15:10)
[2021-10-11] MEDS: HEPARIN SODIUM,PORCINE/PF 5,000 UNIT/0.5 ML SYRINGE SQ SCH ×2 (07:54→16:52)
[2021-10-11] MEDS: cycloSPORINE 0.05% OPHTH 0.4 ML DROPERETTE BOTH EYES SCH (07:54)
[2021-10-11] MEDS: DONEPEZIL 10 MG TAB PO SCH (07:55)
[2021-10-11] MEDS: MEMANTINE 10 MG TAB PO SCH (07:55)
[2021-10-11] MEDS: traMADol 50 MG TAB PO PRN (08:58)
[2021-10-11 12:13] VITALS: BP 124/74; PULSE 63; RESP 15; TEMP 98.2
--- NOTE | 2021-10-11 14:16 | P.PN ---
Subjective Progress Note Date: 10/11/21 Principal diagnosis: UTI The patient is an 85-year-old woman with a past medical history significant of dementia, PE, CAD, and frequent UTI's. She presented To the emergency room on 10/05/21 with fevers, increased lethargy, and loss of appetite. Apparently, patient's symptoms started on 09/26 with increased lethargy, loss of appetite, cloudy urine seen in the Mueller catheter bag by her family members. Subsequently, patient was taken and on 09/28 to obtain a urine culture and urinalysis. Results from this test came back positive for ESBL E. coli a couple days ago. Patient continues to have poor appetite, fatigue and is unable to move from bed. Family suspected the patient has recurrence of urinary tract infection, and therefore brought patient to the hospital for further evaluation. She underwent an epidural injection in 2003, resulting in urinary retention. She performed intermittent self-catheterization following that. She has been treated for recurrent UTIs. She was hospitalized earlier this year for treatment of an ESBL E. coli UTI. She received Invanz for 10 days. Unfortunately, her symptoms worsened 2 days after completing antibiotic therapy. She was readmitted last month. Post void residuals were elevated and catheterization volumes were high. A Mueller catheter was therefore placed. In the emergency room, patient was afebrile, 136/81, heart rate 70, 95% on room air. CBC is negative for leukocytosis. Chemistries show contractional alkalosis with carbon dioxide of 32, otherwise unremarkable. LFTs are unremarkable. CK is less than 20. UA is significant for cloudy appearance, positive nitrites, large leukocyte esterase, 113 white blood cells, white blood cell comes, bacteria, mucus. Chest x-ray is negative for acute cardiopulmonary process but shows a coarsened interstitium related to reduced inspiration. Urine culture has again shown ESBL E. coli. She is currently receiving ertapenem. 10/06 The patient appears to be resting in bed comfortably. She is awake and oriented to self. She is aware she in a hospital, does not know which one or why she is here. She thinks she is somewhere in [place]. She does not know the year or month. Spoke with patient's daughter via telephone. She was educated on palliative care philosophies and services. She states her mother receives palliative care as outpatient. She voiced multiple concerns. She is concerned about her mother's immobility. She states it is fairly new, within the past four weeks. Previously she was able to get up with her walker and and even cook and clean a little bit. She is unsure if it is due to progression of her dementia, arthritis, or weakness secondary to multiple hospitalizations. Physical therapy has been consulted to evaluate patient and potential for rehab. The daughter is also concerned about the patient's recurrent urinary tract infections. 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 She stated the urologist would not agree to this. She feels as if they have given up on her mother just because she is old and wants her to "let nature take it's course". She has requested a different urologist this admission for a second opinion. She is also wondering if the antibiotic course is long enough. She feels as if as soon as they stop the antibiotics, the infection comes back. ID is following. The patient's daughter feels as if the patient has a good quality of life. She describes her as a "spitfire" when she is feeling good at home. She is happy being home, watching her game shows, and being with her cat. She was never a person who liked to go out much. She would like try antibiotic flushes in mueller catheter and/or a prolonged antibiotic treatment before making decisions moving forward. She said "then if they do not work, I will know I did everything I possibly could do for my mother." She feels as if the physicians are giving up on her because of her advanced age. Awaiting infectious disease, urology, and physical therapy's recommendations. The daughter has met with hospice recently and was told her mother did not qualify. 10/07 Patient resting in bed and appears comfortable. She states she does not remember our meeting yesterday or what was discussed. She is confused and stated she only got out of bed today to pee. However, she has mueller catheter. Per physical therapy, the patient is able to hold herself up at the edge of the bed with use of bed rail. She complains of bilateral knee pain with movement. She was unable to to totally stand upright due to inability/unwillingness to push through her legs due to pain. They recommend STEFFI. The patient was not given Tramadol prior to working with physical therapy as requested. The patient's antibiotics have been changed to Meropenem. There are plans to continue IV antibiotics for [address] Baxter's recommendations. Patient's daughter, Lu, updated via telephone. Objective - Vital Signs Vital signs: Vital Signs Temp 98.2 F 10/11/21 11:48 Pulse 63 10/11/21 11:48 Resp 15 10/11/21 11:48 BP 124/74 10/11/21 11:48 Pulse Ox 94 L 10/11/21 11:48 FiO2 Intake & Output 10/10/21 10/11/21 10/11/21 18:59 06:59 18:59 Intake Total 100 Output Total 700 500 Balance -600 -500 Intake: Intake, IV Titration 100 Amount Meropenem 1 gm In Sodium 100 Chloride 0.9% 100 ml @ 33 .333 mls/hr IVPB Q8H [facility] Rx#:[id number] Output: Urine 700 500 Other: Voiding Method Indwelling Catheter Indwelling Catheter Indwelling Catheter # Voids 0 # Bowel Movements 2 0 - Exam General: Well-developed, frail, appears stated age. No acute distress. HEENT: Head is atraumatic, normocephalic. Pupils equal, round and reactive to light bilaterally. CV: Heart regular in rate and rhythm positive S1 and S2. No clicks, rubs or murmurs. Peripheral pulses equal. 2/4 Lungs: DIminished bilateral bases No wheezes rales or rhonchi. Respirations even and nonlabored. On RA Abdomen/GI: Soft. Bowel sounds present in all 4 quadrants. Bowel sounds normoac tive. No abdominal tenderness. : Mueller catheter present draining clear yellow urine Musculoskeletal/ Extremities: MANSFIELD, + generalized weakness Vascular: Radial pulses equal. 2/4. Trace bilateral LEedema Skin: Warm and dry. No rash. Neurologic: Patient awake alert and oriented x 1-2. + confusion Psychiatric: Appropriate mood and affect. - Labs CBC & Chem 7: 10/10/21 04:28 10/10/21 04:28 Labs: Microbiology - Last 24 Hours (Table) 10/05/21 08:51 Blood Culture - Final Blood No Growth after 144 hours 10/05/21 09:04 Blood Culture - Final Blood No Growth after 144 hours Assessment and Plan Assessment: Symptoms * Pain - 0/10, continue Tylenol prn, and Tramadol prn. * Fatigue - + Fatigue and generalized weakness, continue PT * SOB - No, currently on RA * Insomnia - No * N/V - No * Anxiety - No * Depression - No * Confusion - Yes, continue Namenda, Aricept * Agitation - No * Hallucinations - No * Appetite/weight loss - Yes, recent loss of appetite, encourage PO intake, regular diet, and ensure TIDWM * Dysphagia - No * Constipation - No * Incontinence - chronic mueller catheter * Itch - No Plan: Summary/Goals - The patient is siting up in the chair smiling. She states she does not remember what she had for breakfast this morning. She also does not remember that the plan for discharge is to go to [facility] for rehab. Spoke to daughter, Lu, via telephone. She is frustrated stating that no one has been calling her with updates. She states that her mom has dementia and can not remember what the doctors tell her. She is upset that no one has looked into why her mother's legs are so weak. She states they have been getting progressively weak and painful for the past 3-4 weeks. Also, she had requested to see the urologist, specifically Dr. Baxter, during this hospitalization. The patient was seen by the physicians partner, who signed off. Unfortunately, the patient was never seen by Dr. Baxter. The hospitalist team was notified with the frustrations of the patient's daughter. Their DIRECTOR [facility] called Lu and explained that some of these issues will have to be followed up on as an outpatient. Recommendation - Discharge to [facility] with outpatient palliative care Advanced Directives - Not on file, information given Code Status - DNR Thank you for this consult Rafaela Pineda [facility] Palliative Care Spectralink [id number] Email: [email or web address] Time with Patient: Greater than 30
--- NOTE | 2021-10-11 16:38 | P.DS ---
Providers Date of admission: 10/05/21 13:31 Expected date of discharge: 10/11/21 Attending physician: Majo Newman MD Consults: 10/05/21 13:59 Consult Physician Routine Consulting Provider: Dionicio Bustillos Consult Reason/Comments: ESBL UTI Do you want consulting provider notified?: Yes Consult to Palliative Care Routine Consulting Provider: Rafaela Pineda Consult Reason/Comments: GoC planning Do you want consulting provider notified?: Yes 10/05/21 14:00 Consult Physician Routine Consulting Provider: Sonny Baxter Consult Reason/Comments: Specifically Dr. Baxter per family for urinary retention Do you want consulting provider notified?: Yes Primary care physician: Shawna Pearson MD Hospital Course: Discharge Diagnosis: ESBL urinary tract infection related to chronic indwelling Davila catheter, patient received 5 day course of meropenem and was evaluated by urology and infectious disease. Davila catheter was changed out on 10/06/21 and recommended changing out every 2 weeks. Recommend continued catheter care and providing very good peroneal hygiene to prevent further infections. Patient to follow-up outpatient with urology, Dr. Baxter. 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 Apparently, patient's symptoms started on 09/26 with increased lethargy, loss of appetite, cloudy urine seen in the Davila catheter bag by her family members. Subsequently, patient was taken and on 09/28 to obtain a urine culture and urinalysis. Results from this test came back positive for ESBL E. coli couple days ago. Patient continues to have poor appetite, fatigue and is unable to move from bed. Family suspected the patient has recurrence of urinary tract infection, and therefore brought patient to the hospital for further evaluation. Upon arrival to the hospital patient again underwent full evaluation. CBC was unremarkable BUN revealing hypercarbia with CO2 32 and prerenal azotemia with BUN of 21. Urinalysis showing nitrite positive infection with WBC count of 113. Patient was admitted under our services with consultation to infectious disease and urology. Urine culture positive for ESBL. Patient was placed on IV antibiotic meropenem. She was evaluated by urology, stating patient is no longer able to self cath and needs Davila catheter to remain in place which places her at risk for recurrent UTIs. Ways to prevent future UTIs is changing out urinary catheter weeks, performing good peroneal h ygiene frequently, and c patient is medically stable. [facility] Patient was evaluated by physical and occupational therapy recommending discharge to [facility] facility to improve strength, balance, and endurance. Infectious disease following recommending 5 day course of meropenem in which patient has completed. Blood cultures showing no growth. Patient is medically stable at this time. Arrangements have been made for patient to be discharged to [facility] and insurance authorization has been obtained. Patient being transferred to [facility] for continued rehab. Physical exam: Vital signs reviewed and stable. General: Nontoxic, no distress and appears stated age. Thin build. Derm: Skin warm and dry, normal coloration for ethnicity. Head: Atraumatic, normocephalic and symmetric. Eyes: EOMs intact, no lid lag, and anicteric sclera Mouth: no lip lesions, mucus membranes moist Cardiovascular: regular rate and rhythm with normal S1S2, systolic murmur, positive posterior tibial pulses bilaterally, and cap refill < 2 seconds. Lungs: Respirations even, regular, and unlabored on room air. Lungs CTA bila terally, no rhonchi, no rales, no wheezing, and no accessory muscle usage. GI/: soft, nontender to palpation, no guarding, no appreciable organomegaly. Davila catheter in place. Ext: ROM intact. No gross muscle atrophy, chronic bilateral lower extremity nonpitting edema, no contractures Neuro: Speech clear, face symmetrical and CN II-XII grossly intact with no noted focal neuro deficits Psych: Alert and oriented to person, place, and situation exhibiting some confusion with time. Appropriate and pleasant affect. A total of 33 minutes of time were spent preparing this complex discharge s Pt was discharged on 10/11/21 at 1:56 PM I reviewed the documentation as provided by the LIA above, who is the original author of this note. I agree with the documented assessment and plan, with the following changes: none Patient Condition at Discharge: Stable Plan - Discharge Summary Discharge Rx Participant: Yes New Discharge Prescriptions: New Acetaminophen Tab [Tylenol] 650 mg PO Q6HR PRN tab PRN Reason: Mild Pain Or Fever > 100.5 Continue Donepezil HCl [Aricept] 10 mg PO DAILY Memantine HCl [Memantine HCl ER] 28 mg PO DAILY cycloSPORINE 0.05% OPHTH SOLN [Restasis] 0.5 ampul BOTH EYES Q12H Discharge Medication List Donepezil HCl [Aricept] 10 mg PO DAILY 01/07/21 [History] Memantine HCl [Memantine HCl ER] 28 mg PO DAILY 01/07/21 [History] cycloSPORINE 0.05% OPHTH SOLN [Restasis] 0.5 ampul BOTH EYES Q12H 08/11/21 [History] Acetaminophen Tab [Tylenol] 650 mg PO Q6HR PRN tab 10/11/21 [Rx] Follow up Appointment(s)/Referral(s): Shawna Pearson MD [Primary Care Provider] - 1-2 days Sonny Baxter MD [STAFF PHYSICIAN] - 1 Week Activity/Diet/Wound Care/Special Instructions: Activity: As tolerated. Take breaks as needed. Diet: Heart healthy and carb consistent diet. Avoid salts, or foods with hidden salts such as canned or boxed foods and frozen dinners. Continue ensure 3 times daily between meals Special Instructions: Take all of your medications as directed and remember to keep all of your doct or's appointments and follow-up as needed. Recommend Dvaila catheter care and changing of Davila catheter every 2 weeks. Please ensure proper cleanliness/hygiene provided to perineal area to prevent further infections. We will need to follow up outpatient with Dr. Baxter for continued penitentiary monitoring and management. Thank you for allowing us to participate in your care, it was truly a pleasure having you for our patient!!! Discharge Disposition: TRANSFER TO SNF/ECF
--- NOTE | 2021-10-11 17:35 | P.PN ---
Subjective Progress Note Date: 10/11/21 The family requested to speak with me about their mother. We spoke for 15 to 20 minutes about a hypotonic neurogenic bladder. Since the patient has alzheimers she no longer can do cic. SHe will go home with a catheter. She is not on hospice but respit care. they asked if I would manage her catheter and catheter induced infections. I explained to them that they dont need a specialist to do so but I would be glad to help in whatever way I can. 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 We also talked about utis in chronic indwelling catheters. From a urological standpoint she can be discharged Objective - Vital Signs Vital signs: Vital Signs Temp 98.2 F 10/11/21 11:48 Pulse 63 10/11/21 11:48 Resp 15 10/11/21 11:48 BP 124/74 10/11/21 11:48 Pulse Ox 94 L 10/11/21 11:48 FiO2 Intake & Output 10/10/21 10/11/21 10/11/21 18:59 06:59 18:59 Intake Total 100 Output Total 700 500 Balance -600 -500 Intake: Intake, IV Titration 100 Amount Meropenem 1 gm In Sodium 100 Chloride 0.9% 100 ml @ 33 .333 mls/hr IVPB Q8H [facility] Rx#:[id number] Output: Urine 700 500 Other: Voiding Method Indwelling Catheter Indwelling Catheter Indwelling Catheter # Voids 0 # Bowel Movements 2 0 - Labs CBC & Chem 7: 10/10/21 04:28 10/10/21 04:28 Labs: Microbiology - Last 24 Hours (Table) 10/05/21 08:51 Blood Culture - Final Blood No Growth after 144 hours 10/05/21 09:04 Blood Culture - Final Blood No Growth after 144 hours
== END 2021-10-11 17:56 | DRG 699 ==
LOC: EC 08:42 → 5NMEDONC 13:31
PROVIDERS: ADMIT Internal Medicine; ATTEND Internal Medicine
DX: T83.518A Infection and inflammatory reaction due to other urinary catheter, initial encounter (principal); E87.3 Alkalosis; N39.0 Urinary tract infection, site not specified; Z16.12 Extended spectrum beta lactamase (ESBL) resistance; G30.9 Alzheimer's disease, unspecified; F02.80 Dementia in other diseases classified elsewhere, unspecified severity, without behavioral disturbance, psychotic disturbance, mood disturbance, and anxiety; Z20.822 Contact with and (suspected) exposure to COVID-19; Z28.310 Unvaccinated for COVID-19; Z66 Do not resuscitate; R62.7 Adult failure to thrive; B96.20 Unspecified Escherichia coli [E. coli] as the cause of diseases classified elsewhere; E86.0 Dehydration; I25.10 Atherosclerotic heart disease of native coronary artery without angina pectoris; E78.5 Hyperlipidemia, unspecified; N28.1 Cyst of kidney, acquired; N31.9 Neuromuscular dysfunction of bladder, unspecified; K59.00 Constipation, unspecified; M25.561 Pain in right knee; M25.562 Pain in left knee; M81.0 Age-related osteoporosis without current pathological fracture; M19.90 Unspecified osteoarthritis, unspecified site; Z79.899 Other long term (current) drug therapy; Z86.711 Personal history of pulmonary embolism; Z87.440 Personal history of urinary (tract) infections; Z95.1 Presence of aortocoronary bypass graft; Z86.19 Personal history of other infectious and parasitic diseases; Z74.01 Bed confinement status; Z88.1 Allergy status to other antibiotic agents; Z88.2 Allergy status to sulfonamides; Z80.1 Family history of malignant neoplasm of trachea, bronchus and lung; Z82.49 Family history of ischemic heart disease and other diseases of the circulatory system
CPT/HCPCS: 36415; 71046; 80053; 81001; 82550; 83605; 83735; 85025; 85027; 87040; 87077; 87086; 87186; 87635; 96361; 96365; 96367; 96372; 99284